=== PATIENT | female | born 1940 | race Caucasian/White ===

== ENCOUNTER 2016-09-28 10:38 | Inpatient (IN) | payer OTHER, MEDICARE ==
[~2016-09-28] VITALS: Ht 160 cm; Wt 56.6 kg
[~2016-09-28 10:38] MED LIST: COUM10TA PO; COUM5TAB PO; DIPH1TAB36 PO; LIPI80TA16 PO; MELO15TA2 PO
[2016-09-28 10:48] VITALS: BP 178/79; PULSE 65; RESP 14; TEMP 98.4
[2016-09-28 11:50] LABS: AUTOMATED NEUTROPHIL # 4.1 TH/MM3 (1.8-7.7); BASOPHIL % 0.7 % (0.0-2.0); EOSINOPHIL # 0.1 TH/MM3 (0-0.4); HEMO FLAGS DIFF FINAL; LYMPH % 19.6 % (9.0-44.0); LYMPHOCYTE # 1.1 TH/MM3 (1.0-4.8); MEAN CELL VOLUME 92.8 FL (80.0-100.0); MEAN CORPUSCULAR HGB CONC 33.4 % (32.0-36.0); MONO % 7.7 % (0.0-8.0); PLATELET COUNT 167 TH/MM3 (150-450); RED BLOOD COUNT 4.42 MIL/MM3 (4.00-5.30); RED CELL DISTRIBUTION WIDTH 13.5 % (11.6-17.2); WHITE BLOOD COUNT 5.8 TH/MM3 (4.0-11.0)
[2016-09-28 12:06] LABS: ANION GAP 11 MEQ/L (5-15); AST (GOT) 19 U/L (15-37); BICARBONATE 27.2 MEQ/L (21.0-32.0); BLOOD UREA NITROGEN 14 MG/DL (7-18); CHLORIDE 104 MEQ/L (98-107); GLOMERULAR FILTRATION RATE 76 ML/MIN (>89); POTASSIUM 3.9 MEQ/L (3.5-5.1); SODIUM (NA) 142 MEQ/L (136-145)
[2016-09-28 12:17] LABS: ACETAMINOPHEN LESS THAN 2.0 MCG/ML (10.0-30.0); ALKALINE PHOSPHATASE 85 U/L (45-117); ALT (GPT) 18 U/L (10-53); TOTAL BILIRUBIN ADULT 0.6 MG/DL (0.2-1.0)
--- NOTE | 2016-09-28 12:41 | RADRPT ---
EXAM DATE/TIME: 09/28/2016 12:26 [place] COMPARISON: No previous studies available for comparison. INDICATIONS : Altered mental status. RADIATION DOSE: 33.98 CTDIvol (mGy) MEDICAL HISTORY : Cardiovascular disease. Hypertension. SURGICAL HISTORY : Appendectomy. Cholecystectomy.Tubal ligation. ENCOUNTER: Initial ACUITY: 1 day PAIN SCALE: 0/10 LOCATION: cranial TECHNIQUE: Multiple contiguous axial images were obtained of the head. Using automated exposure control and adj ustment of the mA and/or kV according to patient size, radiation dose was kept as low as reasonably a chievable to obtain optimal diagnostic quality images. FINDINGS: CEREBRUM: The ventricles are normal for age. No evidence of midline shift, mass lesion, hemorrhage or acute in farction. No extra-axial fluid collections are seen. There is mild atrophy. POSTERIOR FOSSA: The cerebellum and brainstem are intact. The 4th ventricle is midline. The cerebellopontine angle i s unremarkable. EXTRACRANIAL: The visualized portion of the orbits is intact. SKULL: The calvaria is intact. No evidence of skull fracture. CONCLUSION: No acute intracranial abnormality. Butch Decker MD on September 28, 2016 at 12:39 Board Certified Radiologist. This report was verified electronically.
[2016-09-28 13:31] LABS: BLOOD, URINE MOD (NEG); COMMENT (UR) CULT NOT INDICATED; CULTURE IF INDICATED CULT NOT INDICATED; GLUCOSE,URINE NEG (NEG); HYALINE CAST, URINE 1 /lpf (RARE); KETONE, URINE TRACE mg/dL (NEG); NITRITE,URINE NEG (NEG); SQUAMOUS EPITHELIAL CELL URINE 1 /hpf (0-5); URINE COLOR YELLOW (YELLW/STRAW)
[2016-09-28 13:45] LABS: AMPHETAMINE, URINE NEG (NEG); BARBITURATES, URINE NEG (NEG); COCAINE, URINE NEG (NEG)
[2016-09-28] MEDS ORDERED: NITROFURANTOIN MONOHYD MACROCR 100 MG CAP PO ONE (13:45)
[2016-09-28] MEDS ORDERED: MACR100C2 PO (13:47)
--- NOTE | 2016-09-28 13:48 | PD ---
HPI Chief Complaint: Psychiatric Symptoms Time Seen by Provider: 11:04 Travel History International Travel<30 days: No Contact w/Intl Traveler<30days: No Traveled to known affect area: No History of Present Illness HPI Patient is a 75 year old female who is brought in under a [place] Act for suicidal ideation. Per police, she was threatening to take pills and hurt herself. She says that she is depressed because she thinks her is having an affair. Per police, she is having episodes of paranoia. She has no medical complaints. She denies any pain. She says she has not taken any pills today. PFSH Past Medical History Arthritis: Yes (GENERALIZED) Autoimmune Disease: No Blood Disorders: No Anxiety: No Depression: Yes Cancer: No Cardiovascular Problems: Yes (UNSPECIFIED HEART PROBLEM A CHILD) High Cholesterol: Yes Diminished Hearing: No Endocrine: No Gastrointestinal Disorders: Yes Genitourinary: Yes Hepatitis: Yes Hypertension: Yes Immune Disorder: No Implanted Vascular Access Dvce: Yes Musculoskeletal: Yes (CRAMPING IN HANDS & FEET) Neurologic: Yes Psychiatric: Yes (ATTEMPTED SUICIDE 12/26/08) Reproductive: No Respiratory: No Thyroid Disease: No Tetanus Vaccination: Unknown Influenza Vaccination: No (UNKNOWN) ?: Not Menopausal: Yes Tubal Ligation: Yes Past Surgical History Abdominal Surgery: Yes (APPENDECTOMY; CHOLECYSTECTOMY; COLONOSCOPIES WITH POLYPECTOMY) Appendectomy: Yes Cholecystectomy: Yes Gynecologic Surgery: Yes ( X 2; TUBAL LIGATION) Joint Replacement: Yes (JUAN C. TOTAL KNEES) Other Surgery: Yes (BREAST REDUCTION, OTHER UNKOWN SURGERIES) Social History Alcohol Use: No Tobacco Use: No Substance Use: Yes Allergies-Medications (Allergen,Severity, Reaction): Coded Allergies: Codeine (Verified Allergy, Mild, 12/26/08) Reported Meds & Prescriptions Reported Meds & Active Scripts Active Macrobid (Nitrofurantoin Monoh/Nitrofur Macro) 100 Mg Cap 100 Mg PO BID 5 Days Review of Systems Except as stated in HPI: all other systems reviewed are Neg General / Constitutional: No: Fever HENT: No: Headaches, Lightheadedness Cardiovascular: No: Chest Pain or Discomfort Respiratory: No: Shortness of Breath Gastrointestinal: No: Nausea, Vomiting, Abdominal Pain Genitourinary: No: Urgency, Frequency, Dysuria Musculoskeletal: No: Edema Skin: No Rash, No Change in Pigmentation Neurologic: No: Weakness, Dizziness Psychiatric: Positive: Depression, Suicidal Ideations Physical Exam Narrative GENERAL: Awake and alert, in no acute distress. SKIN: Warm and dry. HEAD: Atraumatic. Normocephalic. EYES: Pupils equal and round. No scleral icterus. ENT: Mucous membranes pink and moist. NECK: Trachea midline. No JVD. CARDIOVASCULAR: Regular rate and rhythm. No murmur appreciated. RESPIRATORY: No accessory muscle use. Clear to auscultation. Breath sounds equal bilaterally. GASTROINTESTINAL: Abdomen soft, non-tender, nondistended. Hepatic and splenic margins not palpable. MUSCULOSKELETAL: No obvious deformities. No clubbing. No cyanosis. No edema. NEUROLOGICAL: Awake and alert, oriented to person, says she can ever remember the date and she often forgets things. No obvious cranial nerve deficits. Motor grossly within normal limits. Normal speech. PSYCHIATRIC: Appropriate mood and affect; insight and judgment normal. Data Data Last Documented VS Vital Signs Date Time Temp Pulse Resp B/P Pulse Ox O2 Delivery O2 Flow Rate FiO2 09/28/16 10:48 98.4 65 14 178/79 Orders Complete Blood Count With Diff (09/28/16 11:14) Comprehensive Metabolic Panel (09/28/16 11:14) Thyroid Stimulating Hormone (09/28/16 11:14) Urinalysis - C+S If Indicated (09/28/16 11:14) Electrocardiogram (09/28/16 11:14) Psych Screen (09/28/16 11:14) Drug Screen, Random Urine (09/28/16 11:14) Alcohol (Ethanol) (09/28/16 11:14) Salicylates (Aspirin) (09/28/16 11:14) Tylenol (Acetaminophen) (09/28/16 11:14) Ct Brain W/O Iv Contrast(Rout) (09/28/16 ) Nitrofurantoin Monohyd Macrocr (Macrobid (09/28/16 13:45) Admit Order (Ed Use Only) (09/28/16 14:25) Lorazepam (Ativan) (09/28/16 14:30) Labs Laboratory Tests Test 09/28/16 09/28/16 11:20 13:12 White Blood Count 5.8 TH/MM3 Red Blood Count 4.42 MIL/MM3 Hemoglobin 13.7 GM/DL Hematocrit 41.0 % Mean Corpuscular Volume 92.8 FL Mean Corpuscular Hemoglobin 31.0 PG Mean Corpuscular Hemoglobin 33.4 % Concent Red Cell Distribution Width 13.5 % Platelet Count 167 TH/MM3 Mean Platelet Volume 9.1 FL Neutrophils (%) (Auto) 71.0 % Lymphocytes (%) (Auto) 19.6 % Monocytes (%) (Auto) 7.7 % Eosinophils (%) (Auto) 1.0 % Basophils (%) (Auto) 0.7 % Neutrophils # (Auto) 4.1 TH/MM3 Lymphocytes # (Auto) 1.1 TH/MM3 Monocytes # (Auto) 0.4 TH/MM3 Eosinophils # (Auto) 0.1 TH/MM3 Basophils # (Auto) 0.0 TH/MM3 CBC Comment DIFF FINAL Differential Comment Sodium Level 142 MEQ/L Potassium Level 3.9 MEQ/L Chloride Level 104 MEQ/L Carbon Dioxide Level 27.2 MEQ/L Anion Gap 11 MEQ/L Blood Urea Nitrogen 14 MG/DL Creatinine 0.74 MG/DL Estimat Glomerular Filtration 76 ML/MIN Rate Random Glucose 91 MG/DL Calcium Level 8.8 MG/DL Total Bilirubin 0.6 MG/DL Aspartate Amino Transf 19 U/L (AST/SGOT) Alanine Aminotransferase 18 U/L (ALT/SGPT) Alkaline Phosphatase 85 U/L Total Protein 6.9 GM/DL Albumin 3.8 GM/DL Thyroid Stimulating Hormone 1.220 uIU/ML 3rd Gen Salicylates Level LESS THAN 1.7 MG/DL Acetaminophen Level LESS THAN 2.0 MCG/ML Ethyl Alcohol Level LESS THAN 3 MG/DL Urine Color YELLOW Urine Turbidity HAZY Urine pH 7.0 Urine Specific [place] 1.013 Urine Protein NEG mg/dL Urine Glucose (UA) NEG mg/dL Urine Ketones TRACE mg/dL Urine Occult Blood MOD Urine Nitrite NEG Urine Bilirubin NEG Urine Urobilinogen LESS THAN 2.0 MG/DL Urine Leukocyte Esterase MOD Urine RBC 9 /hpf Urine WBC 8 /hpf Urine Squamous Epithelial 1 /hpf Cells Urine Hyaline Casts 1 /lpf Microscopic Urinalysis Comment CULT NOT INDICATED Urine Opiates Screen NEG Urine Barbiturates Screen NEG Urine Amphetamines Screen NEG Urine Benzodiazepines Screen NEG Urine Cocaine Screen NEG Urine Cannabinoids Screen NEG MDM Medical Decision Making Medical Screen Exam Complete: Yes Emergency Medical Condition: Yes Differential Diagnosis suicide attempt, electrolyte abnormalities, infection Narrative Course Patient is a 75 year old female who comes in under a [place] Act for suicidal ideation. She has no complaints at this time. Labs sent show UTI. Patient given Macrobid. Cleared for psychiatric evaluation. Disposition per psychiatry. Diagnosis Primary Impression: Suicidal ideation Additional Impression: UTI (urinary tract infection) Qualified Code: N30.00 - Acute cystitis without hematuria Scripts Warfarin (Coumadin)6 Mg Tab6 Mg PO DAILY@16 #30 TAB Ref 0 Prov:Butch Page MD 10/02/16 Quetiapine 25 Mg Tab25 Mg PO BID #60 TAB Ref 0 Prov:Butch Page MD 10/02/16 Nitrofurantoin Monohydrate Macrocrystals (Macrobid)100 Mg [id number] Mg PO BIDPC # 4 CAP Ref 0 Prov:Butch Page MD 10/02/16 Amlodipine (Norvasc)5 Mg Tab5 Mg PO DAILY #30 TAB Ref 0 Prov:Butch Page MD 10/02/16 Nitrofurantoin Monohydrate Macrocrystals (Macrobid)100 Mg [id number] Mg PO BID 5 Days Ref 0 Prov:Kira Travis MD 09/28/16 Condition: Stable Kira Travis MD Sep 28, 2016 13:47
[2016-09-28] MEDS ORDERED: LORazepam 0.5 MG TAB PO ONE (14:30)
[2016-09-28] MEDS ORDERED: diphenhydrAMINE HCL 50 MG CAP PO PRN (14:30)
[2016-09-28 14:34] VITALS: BP 152/72; PULSE 89; RESP 18; O2SAT 98
[2016-09-28] MEDS ORDERED: LORazepam 2 MG/ML VIAL - age > 65 yrs IM PRN (14:45)
[2016-09-28] MEDS ORDERED: ACETAMINOPHEN 325 MG TAB PO PRN (14:45)
[2016-09-28] MEDS ORDERED: diphenhydrAMINE HCL 50 MG/ML VIAL IM PRN (14:45)
[2016-09-28] MEDS ORDERED: hydrOXYzine HCL 50 MG TAB PO PRN (14:45)
[2016-09-28] MEDS ORDERED: ALUMINUM/MAGNESIUM/SIMETH 30 ML CUP PO PRN (14:45)
[2016-09-28] MEDS ORDERED: MAGNESIUM HYDROXIDE SUSP 30 ML CUP PO PRN (14:45)
[2016-09-28] MEDS ORDERED: LORazepam 0.5 MG TAB age > 65 yrs PO PRN (14:45)
[2016-09-28] MEDS: amLODIPine BESYLATE 5 MG TAB PO SCH (16:00)
--- NOTE | 2016-09-28 16:00 | PD.CONS ---
[facility] Reason for Consult Hypertension, cardiac Primary Care Physician Unknown Diagnoses: History of Present Illness This is a 75 field female patient who is currently alert and oriented to person and place only, therefore information gathered from patient as well as prior computerized charting. Patient has a past medical history which includes arthritis, heart surgery as a child, hyperlipidemia, hypertension and hepatitis unknown type. Patient reports she was brought here by 2 police officers. Patient reports she is feeling well and asking when she can go home. Patient is currently inpatient psychiatric center we have been consulted for assistance with hypertension, cardiac. Patient does appear anxious at this time but in no acute distress. Patient denies shortness of breath chest pain nausea vomiting diarrhea constipation fevers or chills. Patient also denies headache changes in vision or lightheaded feeling. Review of Systems ROS Limitations: Poor Historian Except as stated in HPI: all other systems reviewed are Neg Past Family Social History Allergies: Coded Allergies: Codeine (Verified Allergy, Mild, 12/26/08) Past Medical History arthritis, heart surgery as a child, hyperlipidemia, hypertension and hepatitis unknown type Past Surgical History Appendectomy, cholecystectomy, colonoscopy with polypectomy, 2, tubal ligation, bilateral total knee replacement and breast reduction Reported Medications Macrobid (Nitrofurantoin Monoh/Nitrofur Macro) 100 Mg Cap 100 Mg PO BID 5 Days Active Ordered Medications Current Medications Medications (Trade) Dose Ordered Sig/Joann Route Start Time Stop Time Status Last Admin (Ativan) 0.5 mg Q12H PRN PO 09/28/16 14:45 (Ativan Inj) 0.5 mg Q12H PRN IM 09/28/16 14:45 (Atarax) 50 mg Q6H PRN PO 09/28/16 14:45 (Benadryl) 50 mg Q6H PRN PO 09/28/16 14:30 (Benadryl Inj) 50 mg Q6H PRN IM 09/28/16 14:45 (Tylenol) 650 mg Q4H PRN PO 09/28/16 14:45 (Milk Of Magnesia Liq) 30 ml DAILY PRN PO 09/28/16 14:45 (Mag-Al Plus Susp Liq) 30 ml Q6H PRN PO 09/28/16 14:45 Family History Patient does not recall her family history reports he believes everyone is healthy denies hypertension diabetes CAD or cancer Social History Patient reports she occasionally does drink alcohol not on a daily basis Patient denies EtOH use or illicit drug use Physical Exam Vital Signs Vital Signs Date Time Temp Pulse Resp B/P Pulse Ox O2 Delivery O2 Flow Rate FiO2 09/28/16 14:34 89 18 152/72 98 09/28/16 10:48 98.4 65 14 178/79 Physical Exam GENERAL: This is a well-nourished, well-developed patient 75 year old female patient appears anxious but in no apparent distress. SKIN: No rashes, ecchymoses or lesions. Cool and dry. HEAD: Atraumatic. Normocephalic. No temporal or scalp tenderness. EYES: Extraocular motions intact. No scleral icterus. No injection or drainage. CARDIOVASCULAR: Regular rate and rhythm without murmurs, gallops, or rubs. RESPIRATORY: Clear to auscultation. Breath sounds equal bilaterally. No wheezes , rales, or rhonchi. GASTROINTESTINAL: Abdomen soft, non-tender, nondistended. MUSCULOSKELETAL: Extremities without clubbing, cyanosis, or edema. No joint tenderness, effusion, or edema noted. No calf tenderness. Negative Homans sign bilaterally. NEUROLOGICAL: Awake and alert. No focal deficits. Motor and sensory grossly within normal limits. Five out of 5 muscle strength in all muscle groups. Normal speech. Laboratory Laboratory Tests Test 09/28/16 09/28/16 11:20 13:12 White Blood Count 5.8 Red Blood Count 4.42 Hemoglobin 13.7 Hematocrit 41.0 Mean Corpuscular Volume 92.8 Mean Corpuscular Hemoglobin 31.0 Mean Corpuscular Hemoglobin 33.4 Concent Red Cell Distribution Width 13.5 Platelet Count 167 Mean Platelet Volume 9.1 Neutrophils (%) (Auto) 71.0 Lymphocytes (%) (Auto) 19.6 Monocytes (%) (Auto) 7.7 Eosinophils (%) (Auto) 1.0 Basophils (%) (Auto) 0.7 Neutrophils # (Auto) 4.1 Lymphocytes # (Auto) 1.1 Monocytes # (Auto) 0.4 Eosinophils # (Auto) 0.1 Basophils # (Auto) 0.0 CBC Comment DIFF FINAL Differential Comment Sodium Level 142 Potassium Level 3.9 Chloride Level 104 Carbon Dioxide Level 27.2 Anion Gap 11 Blood Urea Nitrogen 14 Creatinine 0.74 Estimat Glomerular Filtration 76 Rate Random Glucose 91 Calcium Level 8.8 Total Bilirubin 0.6 Aspartate Amino Transf 19 (AST/SGOT) Alanine Aminotransferase 18 (ALT/SGPT) Alkaline Phosphatase 85 Total Protein 6.9 Albumin 3.8 Thyroid Stimulating Hormone 1.220 3rd Gen Salicylates Level LESS THAN 1.7 Acetaminophen Level LESS THAN 2.0 Ethyl Alcohol Level LESS THAN 3 Urine Color YELLOW Urine Turbidity HAZY Urine pH 7.0 Urine Specific [place] 1.013 Urine Protein NEG Urine Glucose (UA) NEG Urine Ketones TRACE Urine Occult Blood MOD Urine Nitrite NEG Urine Bilirubin NEG Urine Urobilinogen LESS THAN 2.0 Urine Leukocyte Esterase MOD Urine RBC 9 Urine WBC 8 Urine Squamous Epithelial 1 Cells Urine Hyaline Casts 1 Microscopic Urinalysis Comment CULT NOT INDICATED Urine Opiates Screen NEG Urine Barbiturates Screen NEG Urine Amphetamines Screen NEG Urine Benzodiazepines Screen NEG Urine Cocaine Screen NEG Urine Cannabinoids Screen NEG Result Diagram: 09/28/16 1120 09/29/16 0701 Assessment and Plan Assessment and Plan This is a 75 field female patient who is currently alert and oriented to person and place only, therefore information gathered from patient as well as prior computerized charting. Patient has a past medical history which includes arthritis, heart surgery as a child, hyperlipidemia, hypertension and hepatitis unknown type. Patient reports she was brought here by 2 police officers. Patient reports she is feeling well and asking when she can go home. Patient is currently inpatient psychiatric center we have been consulted for assistance with hypertension, cardiac. Hypertension will start Norvasc 5 mg daily continue to monitor blood pressure trend History of hyperlipidemia- lipid profile pending ? UTI UA reveals negative protein, negative nitrates, moderate leukocyte esterase- ER provider started patient on Macrobid 100 mg twice a day 5 days- given patient's confusion she is unable to tell whether not she is having symptoms. Will continue and await culture results DVT prophylaxis patient is ambulatory and low risk Discussed plan of care with patient and nursing Written by Luna Greenwood, acting as scribe for Dr. Shaffer on 09/28/16 at 15:59. Spoke with patient's reports that patient takes 5 mg Coumadin PO daily for blood clots in the past, but has not been taking her medications. restarted coumadin with pharmacy consult. Attending Statement The documentation accurately reflects the work performed [id number] by me on 09/28/16 at 15:59. Luna Greenwood Sep 28, 2016 16:00 Lai Daniels MD Oct 02, 2016 23:05
[2016-09-28 16:39] VITALS: BP 164/56; PULSE 89; RESP 18; TEMP 97.9; O2SAT 99
[2016-09-28] MEDS: NITROFURANTOIN MONOHYD MACROCR 100 MG CAP PO SCH (16:41)
[2016-09-28] MEDS: WARFARIN SOD 5 MG TAB PO SCH (16:42)
[2016-09-29 05:52] VITALS: BP 122/73; PULSE 68; RESP 18; TEMP 97.9; O2SAT 98
[2016-09-29 07:56] LABS: INTERNATIONAL NORMALIZED RATIO 1.3 RATIO; PROTHROMBIN TIME - PATIENT 14.7 SEC (9.8-11.6)
[2016-09-29 08:20] LABS: ANION GAP 7 MEQ/L (5-15); BICARBONATE 28.9 MEQ/L (21.0-32.0); BLOOD UREA NITROGEN 16 MG/DL (7-18); CHLORIDE 106 MEQ/L (98-107); GLOMERULAR FILTRATION RATE 81 ML/MIN (>89); HDL CHOLESTEROL 74.3 MG/DL (40.0-60.0); LDL CHOLESTEROL 152 MG/DL (0-99); POTASSIUM 3.7 MEQ/L (3.5-5.1); SODIUM (NA) 142 MEQ/L (136-145)
[2016-09-29] MEDS: NITROFURANTOIN MONOHYD MACROCR 100 MG CAP PO SCH ×2 (08:38→17:24)
[2016-09-29] MEDS: amLODIPine BESYLATE 5 MG TAB PO SCH (08:38)
--- NOTE | 2016-09-29 13:36 | EKG ---
Date Performed: 09/28/2016 Time Performed: 12:19:20 PTAGE: 75 years EKG: Sinus rhythm NORMAL ECG Compared to prior tracing no significant change PREVIOUS TRACING : 12/26/2008 10.59 DOCTOR: Addison Fatima Interpretating Date/Time 09/29/2016 13:35:51
--- NOTE | 2016-09-29 14:59 | HHI.HP ---
Provisional Diagnosis Admission Date Sep 28, 2016 at 14:27 [place] I. Other Alzheimer's disease g 30.8 Certification of Person's Competence To Provide Express and Informed Consent I have personally examined Tavia Fried , a person being served at [facility] on, Sep 29, 2016 14:37. Express and informed consent means consent voluntarily given in writing, by a competent person, after sufficient explanation and disclosure of the subject matter involved to enable the person to make a knowing and willful decision without any element of force, fraud, deceit, duress, or other form of constraint or coercion. This person is 18 years of age or older, is not now known to be incompetent to consent to treatment with a guardian advocate, and does not have a health care surrogate or proxy currently making medical treatment decisions. I have found this person to be one of the following: [] Competent to provide express and informed consent, as defined above, for voluntary admission to this facility and is competent to provide express and informed consent for treatment. He/she has the consistent capacity to make well reasoned, willful, and knowing decisions concerning his or her medical or mental health treatment. The person fully and consistently understands the purpose of the admission for examination/placement and is fully capable of personally exercising all rights assured [place] [x] Incompetent to provide express and informed consent to voluntary admission, and this is incompetent to provide express and informed consent to treatment. The person must be transferred to involuntary status and a petition for a guardian advocate filed with the Circuit Court. [] Refusing to provide express and informed consent to voluntary admission but is competent to provide express and informed consent for treatment. The person must be discharged or transferred to involuntary status. Form shall be completed within 24 hours of a person's arrival at the receiving facility and filed in the clinical record of each person: 1. Admitted on a voluntary basis 2. Permitted to provide express and informed consent to his/her own treatment 3. Allowed to transfer from involuntary to voluntary status 4. Prior to permitting a person to consent to his or her own treatment after having been previously found incompetent to consent to treatment. History of Present Illness Capacity: Lacks Capacity HPI Patient is a 75-year-old white female, born in [place], comes here under the Espinosa act by the [employer] Department dated 09/28/16 at 9:30 AM. Stating received a call of a mentally ill person, upon arrival made contact with RP who stated his has been having numerous mental breakdowns. RP advised his has threatened to kill herself numerous times. Patient seen screened in the ED urine toxicology negative. Of and chest patient also seen here for similar episode of depression in relationship issues with her under visit [id number] on 08/27/[address] Andrez Polanco and released without medication. At the present time patient sitting quietly in her room with nurse Caio and medical student Magdalene. Patient was diffusely confused as to place time and situation, speaking in rapid pressured speech markedly disorganized with loose associations. Very poor personal boundaries to the point where she went over and not his her female roommate was lying in bed. She also referred to me as as "sweetheart "preferred to other staff as "honey patient is statements of living with her , with her daughter, and with her son though at times this was confusing also. When asked about relationship she says she loves them all and they all love her. When asked about any alcohol or drug use she was somewhat vague but then [place] me over to her house to have some schnapps patient denied and was vague about prior psychiatric contact hospitalization of psychotropic medications. She did denies suicidality homicidality voices or visions. The deny any prior physical or sexual abuse. Denied any substances of abuse or smoking. She also denied history of mental health issues with her family. In any event at the present time patient does meet criteria for involuntary psychiatric hospitalization of the Espinosa act thus I'll do first opinion requests a second opinion. I also feel she does not have capacity thus I'll ask for healthcare surrogate and guardian advocate. Patient is on anticoagulants perhaps for prior DVTs. With the hospitalist consulting us with that we'll have a counselor attempt to call the patient's family arrange for meeting tomorrow morning. We need to discuss with patient's and family possible placement issues. At the present time will refrain from any psychotropic medications and observe her behavior until family meeting tomorrow Review of Systems ROS Limitations: Altered Mental Status Constitutional: DENIES: Diaphoretic episodes, Fatigue, Fever, Weight gain, Weight loss, Chills, Dizziness, Change in appetite, Night Sweats Endocrine: DENIES: Abnorml menstrual pattern, Heat/cold intolerance, Polydipsia , Polyuria, Polyphagia Eyes: DENIES: Blurred vision, Diplopia, Eye inflammation, Eye pain, Vision loss , Photosensitivity, Double Vision Ears, nose, mouth, throat: DENIES: Tinnitus, Hearing loss, Vertigo, Nasal discharge, Oral lesions, Throat pain, Hoarseness, Ear Pain, Running Nose, Epistaxis, Sinus Pain, Toothache, Odynophagia Respiratory: DENIES: Apneas, Cough, Snoring, Wheezing, Hemoptysis, Sputum production, Shortness of breath Cardiovascular: DENIES: Chest pain, Palpitations, Syncope, Dyspnea on Exertion , PND, Lower Extremity Edema, Orthopnea, Claudication Gastrointestinal: DENIES: Abdominal pain, Black stools, Bloody stools, Constipation, Diarrhea, Nausea, Vomiting, Difficulty Swallowing, Anorexia Genitourinary: DENIES: Abnormal vaginal bleeding, Dysmenorrhea, Dyspareunia, Sexual dysfunction, Urinary frequency, Urinary incontinence, Urgency, Hematuria , Dysuria, Nocturia, Vaginal discharge Musculoskeletal: DENIES: Joint pain, Muscle aches, Stiffness, Joint Swelling, Back pain, Neck pain Integumentary: DENIES: Abnormal pigmentation, Pruritus, Rash, Nail changes, Breast masses, Breast skin changes, Nipple discharge Hematologic/lymphatic: DENIES: Bruising, Lymphadenopathy Immunologic/allergic: DENIES: Eczema, Urticaria Neurologic: DENIES: Abnormal gait, Headache, Localized weakness, Paresthesias, Seizures, Speech Problems, Tremor, Poor Balance Psychiatric: COMPLAINS OF: Confusion, Mood changes, Suicidal Ideation Past Psych History Psychological trauma history Patient denies physical or sexual abuse Violence risk - others (6 mos) Low Violence risk - self (6 mos) Patient made suicidal statements Substance Abuse History Drugs/Alcohol past 12 months Uncertain at this time need verification from family Past Family Social History Coded Allergies: Codeine (Verified Allergy, Mild, 12/26/08) Past Medical History Please see [employer] Active Scripts Nitrofurantoin Monohydrate Macrocrystals (Macrobid)100 Mg [id number] Mg PO BID 5 Days Ref 0 Prov:Kira Travis MD 09/28/16 Current Medications Medications (Trade) Dose Ordered Sig/Joann Route Start Time Stop Time Status Last Admin (Ativan) 0.5 mg Q12H PRN PO 09/28/16 14:45 (Ativan Inj) 0.5 mg Q12H PRN IM 09/28/16 14:45 (Atarax) 50 mg Q6H PRN PO 09/28/16 14:45 (Benadryl) 50 mg Q6H PRN PO 09/28/16 14:30 (Benadryl Inj) 50 mg Q6H PRN IM 09/28/16 14:45 (Tylenol) 650 mg Q4H PRN PO 09/28/16 14:45 (Milk Of Magnesia Liq) 30 ml DAILY PRN PO 09/28/16 14:45 (Mag-Al Plus Susp Liq) 30 ml Q6H PRN PO 09/28/16 14:45 (Macrobid) 100 mg BIDPC PO 09/28/16 18:00 10/03/16 17:59 09/29/16 08:38 (Norvasc) 5 mg DAILY PO 09/28/16 16:00 09/29/16 08:38 Warfarin Sodium 5 mg 5 mg DAILY@1600 PO 09/29/16 16:00 (Coumadin Consult Pharmacy) 0 ml @ 0 mls/hr UNSCH OTHER 09/28/16 16:15 (Coumadin Booklet) 1 ONCE ONCE XX 09/29/16 16:00 09/29/16 16:01 Family History Patient denies mental illness and family Social History Patient states she lives with her son and daughter Patient's Strengths (min. 2) Verbal able access healthcare Physical Exam Patient seen screened in ED exam reviewed and agreed with vital signs pressure 122/73 pulse 68 respirations 18 Vital Signs Vital Signs Date Time Temp Pulse Resp B/P Pulse Ox O2 Delivery O2 Flow Rate FiO2 09/29/16 05:52 97.9 68 18 122/73 98 I/O 09/28/16 09/28/16 09/29/16 08:00 16:00 00:00 Intake Total 360 ml Balance 360 ml Mental Status Examination Alert diffusely confused white female appearing stated age with rapid pressured speech markedly intrusive somewhat grandiose, with intense eye contact patient is seen with nurse Caio and medical student Bernadette Appearance Somewhat disheveled Speech: Pressured, Rapid, Circumstantial, Tangential Orientation: Person (vaguely) Memory: Impaired (describe) Thought Process: Loose Association Thought Content: Other (disorganized) Hallucination Type: None Attention and Concentration: Easily Distracted Suicidal Ideation: Yes Previous Suicide Attempts: No Homicidal Ideation: No Previous Homicide Attempts: No Insight: Poor Judgement: Poor Affect: Other (increase range of motion intensity) Mood: Manic Motor Activity: Normal gait Assessment & Plan Problem List: (1) OTHER ALZHEIMER'S DISEASE ICD Code: G30.8 Assessment & Plan Estimated LOS 5-7 days at this time patient meets Espinosa criteria for involuntary hospitalization I'll do first opinion requests second opinion I will also ask for healthcare surrogate and guardian advocate. Will attempt to arrange a family meeting for tomorrow morning. Will refrain from any psychotropic medications at this time continue observation Discharge Planning To be determined Request HC Surrog/Guard Advoc?: Yes Butch Page MD Sep 29, 2016 14:59
[2016-09-29] MEDS ORDERED: ACETAMINOPHEN 325 MG TAB PO PRN (15:00)
[2016-09-29] MEDS ORDERED: ALUMINUM/MAGNESIUM/SIMETH 30 ML CUP PO PRN (15:00)
[2016-09-29] MEDS ORDERED: MAGNESIUM HYDROXIDE SUSP 30 ML CUP PO PRN (15:00)
[2016-09-29] MEDS: WARFARIN SOD 5 MG TAB PO SCH (15:55)
[2016-09-29 16:16] LABS: HEMOGLOBIN A1a 1.1 %; HEMOGLOBIN A1b 1.4 %; HEMOGLOBIN Ao 86.5 %; HEMOGLOBIN LA1C 1.9 %; HEMOGLOBIN P3 3.5 %
[2016-09-29 19:09] VITALS: BP 111/56; PULSE 68; RESP 18; TEMP 97.3; O2SAT 97
[2016-09-30 06:00] VITALS: BP 129/70; PULSE 80; RESP 18; TEMP 98; O2SAT 97
--- NOTE | 2016-09-30 07:56 | PD.CONS ---
Provisional Diagnosis Admission Date Sep 28, 2016 at 14:27 [place] I. 1. Neurocognitive disorder, F99 Suspect major neurocognitive disorder of the Alzheimer's type with associated behavioral disturbance or psychosis Rule out comorbid primary affective or psychotic disorder [place] II. Deferred [place] V. GAF is 30 presently History of Present Illness Service Psychiatry Consult Requested By Dr. Page Reason for Consult Second opinion Primary Care Physician Unknown HPI From Dr. Page's H&P: Patient is a 75-year-old white female, born in [place], comes here under the [employer] act by the [employer] Department dated 09/28/16 at 9:30 AM. Stating received a call of a mentally ill person, upon arrival made contact with RP who stated his has been having numerous mental breakdowns. RP advised his has threatened to kill herself numerous times. Patient seen screened in the ED urine toxicology negative. Of and chest patient also seen here for similar episode of depression in relationship issues with her under visit [id number] on 08/27/[address] Andrez Polanco and released without medication. At the present time patient sitting quietly in her room with nurse Caio and medical student Magdalene. Patient was diffusely confused as to place time and situation, speaking in rapid pressured speech markedly disorganized with loose associations. Very poor personal boundaries to the point where she went over and not his her female roommate was lying in bed. She also referred to me as as "sweetheart "preferred to other staff as "honey patient is statements of living with her , with her daughter, and with her son though at times this was confusing also. When asked about relationship she says she loves them all and they all love her. When asked about any alcohol or drug use she was somewhat vague but then [place] me over to her house to have some schnapps patient denied and was vague about prior psychiatric contact hospitalization of psychotropic medications. She did denies suicidality homicidality voices or visions. The deny any prior physical or sexual abuse. Denied any substances of abuse or smoking. She also denied history of mental health issues with her family. In any event at the present time patient does meet criteria for involuntary psychiatric hospitalization of the Espinosa act thus I'll do first opinion requests a second opinion. I also feel she does not have capacity thus I'll ask for healthcare surrogate and guardian advocate. Patient is on anticoagulants perhaps for prior DVTs. With the hospitalist consulting us with that we'll have a counselor attempt to call the patient's family arrange for meeting tomorrow morning. We need to discuss with patient's and family possible placement issues. At the present time will refrain from any psychotropic medications and observe her behavior until family meeting tomorrow On my examination today: Patient seen and examined. Chart reviewed. On my examination today, the patient is calm and pleasant but confused, please see full mental status testing below. She has no recollection of the circumstances of the Espinosa act. She denies any issues with mood. She denies any suicidal or homicidal ideation. She denies any audiovisual hallucinations and I can elicit no delusional beliefs. She in particular does not describe any beliefs that her is having an affair. Psychiatric interview is somewhat limited because of degree of cognitive impairment. Past psychiatric history: Patient is likely an unreliable historian but denies any history of psychiatric diagnosis. She denies any history of inpatient or outpatient psychiatric treatment. She denies any history of suicide attempts, although I do see notation in the chart that she presented in 2008 with a multidrug overdose. Family history: The patient denies a family history of mental illness. Chemical dependency history: The patient denies any abuse of drugs or alcohol. Toxicology on presentation here was negative. Social history: Patient reports that she lives at home. Initially she says she lives with her son and daughter. She forgets that she is but when I ask her directly she says that she lives at home with her , son and daughter. She cannot remember her level of education. She cannot remember her work history. Social history is fairly limited because of cognitive impairment for autobiographical details. Review of Systems ROS Limitations: Poor Historian Other No reported physical complaints today Past Family Social History Coded Allergies: Codeine (Verified Allergy, Mild, 12/26/08) Past Medical History See electronic medical record Active Scripts Nitrofurantoin Monohydrate Macrocrystals (Macrobid)100 Mg [id number] Mg PO BID 5 Days Ref 0 Prov:Kira Travis MD 09/28/16 Current Medications Medications (Trade) Dose Ordered Sig/Joann Route Start Time Stop Time Status Last Admin (Ativan) 0.5 mg Q12H PRN PO 09/28/16 14:45 09/29/16 14:25 (Atarax) 50 mg Q6H PRN PO 09/28/16 14:45 (Macrobid) 100 mg BIDPC PO 09/28/16 18:00 10/03/16 17:59 09/29/16 17:24 (Norvasc) 5 mg DAILY PO 09/28/16 16:00 09/29/16 08:38 Warfarin Sodium 5 mg 5 mg DAILY@1600 PO 09/29/16 16:00 09/29/16 15:55 (Coumadin Consult Pharmacy) 0 ml @ 0 mls/hr UNSCH OTHER 09/28/16 16:15 (Tylenol) 650 mg Q4H PRN PO 09/29/16 15:00 (Milk Of Magnesia Liq) 30 ml DAILY PRN PO 09/29/16 15:00 (Mag-Al Plus Susp Liq) 30 ml Q6H PRN PO 09/29/16 15:00 Patient's Strengths (min. 2) In a monitored setting. Verbally fluent. Physical Exam Physical examination completed by ED provider. On my examination today, patient appears to be well-nourished and well-developed and in no acute physical distress. No motoric abnormalities noted. Labs and vital signs reviewed. Vital Signs Vital Signs Date Time Temp Pulse Resp B/P Pulse Ox O2 Delivery O2 Flow Rate FiO2 09/30/16 06:00 98.0 80 18 129/70 97 I/O 09/29/16 09/29/16 09/30/16 08:00 16:00 00:00 Intake Total 1320 ml Balance 1320 ml Lab Results Item Value Date Time White Blood Count 5.8 TH/MM3 09/28/16 1120 Hemoglobin 13.7 GM/DL 09/28/16 1120 Platelet Count 167 TH/MM3 09/28/16 1120 Sodium Level 142 MEQ/L 09/29/16 0701 Potassium Level 3.7 MEQ/L 09/29/16 0701 Chloride Level 106 MEQ/L 09/29/16 0701 Carbon Dioxide Level 28.9 MEQ/L 09/29/16 0701 Blood Urea Nitrogen 16 MG/DL 09/29/16 0701 Creatinine 0.70 MG/DL 09/29/16 0701 Random Glucose 90 MG/DL 09/29/16 0701 Hemoglobin A1c 5.3 % 09/29/16 0701 Aspartate Amino Transf (AST/SGOT) 19 U/L 09/28/16 1120 Alanine Aminotransferase (ALT/SGPT) 18 U/L 09/28/16 1120 Alkaline Phosphatase 85 U/L 09/28/16 1120 Thyroid Stimulating Hormone 3rd Gen 1.220 uIU/ML 09/28/16 1120 Toxicology and urinalysis results reviewed. Head CT read as no acute intracranial abnormality. Mental Status Examination Patient is in hospital gown. She is fairly well groomed. She is awake and alert and oriented to person only. She cannot give the date or the location. Her registration is 3 out of 3 but her recall is 0 out of 3 at 3 minutes. She is unable to spell the word world backwards but can spell it forwards. She is able to name 2 items but struggles to repeat a phrase. No motoric abnormalities noted. Speech is within normal limits for rate, tone and volume. Language and fund of knowledge seem reduced. Patient denies any issues with mood and her affect is fairly bright, full and reactive at this point. Thought process circumstantial, at times tangential. Associations somewhat loose. No bashir delusional material. Denies audiovisual hallucinations. Denies suicidal or homicidal ideation but it is unclear that she is reliable to contract for safety in her present state. Insight and judgment are presently poor. Assessment & Plan Problem List: (1) Confusion and disorientation ICD Code: F99 Assessment & Plan Given the circumstances of her presentation here in her presentation on my examination today, I concur with Dr. Page that the patient meets criteria for involuntary psychiatric hospitalization under the Espinosa act. I completed the second opinion paperwork. Further care as per Dr. Page. Thank you very much for this consultation. Signing off. Request HC Surrog/Guard Advoc?: Yes Addison Hilario MD Sep 30, 2016 07:56
[2016-09-30 08:08] LABS: INTERNATIONAL NORMALIZED RATIO 1.3 RATIO; PROTHROMBIN TIME - PATIENT 14.7 SEC (9.8-11.6)
[2016-09-30] MEDS: amLODIPine BESYLATE 5 MG TAB PO SCH (09:46)
[2016-09-30] MEDS: NITROFURANTOIN MONOHYD MACROCR 100 MG CAP PO SCH ×2 (09:46→17:46)
--- NOTE | 2016-09-30 12:30 | PD.PN.STU ---
Subjective Remarks Patient reports feeling sad today stating "I feel sad, I miss my animals, I miss my son, I miss my hubby. I want to go home". She reports she has slept well and has taken "2 pills' Today. Objective Vitals Vital Signs Date Time Temp Pulse Resp B/P Pulse Ox O2 Delivery O2 Flow Rate FiO2 09/30/16 06:00 98.0 80 18 129/70 97 09/29/16 19:09 97.3 68 18 111/56 97 I/O 09/29/16 09/29/16 09/29/16 09/30/16 09/30/16 09/30/16 07:00 15:00 23:00 07:00 15:00 23:00 Intake Total 1320 ml Balance 1320 ml Intake Oral 1320 ml # Voids 2 2 1 # Bowel Movements 1 Result Diagram: 09/28/16 1120 09/29/16 0701 Objective Remarks Patient is sitting comfortably at lunch table with other patients, she appears tearful and is being consoled by another patient. Son is here visiting with patient. He states that he does not live with the patient and she is "confused" about that. He states that she lives with her and he is "physically deteriorating", suffering from his second bout of pneumonia currently. They are considering putting him in an [facility] currently. He also suggests that the patient is normally on Zoloft. She is refusing to eat her lunch due to being depressed. A/P Assessment and Plan Patient appears depressed, no suicidal/homicidal ideation. Will see if patient medication list included Zoloft in the past per sons history today. Will continue to follow patient and work with family members for future D/C plans if she is stable to [place]. Magdalene Huang M3 Sep 30, 2016 12:29
--- NOTE | 2016-09-30 13:40 | HHI.PYPN ---
Subjective Remarks Patient seen in her room with nurse Lashell and medical student Rosina, patient calm pleasant at times a little labile with some softening of our personal boundaries. She states she still wishes to go home to be with her family that appear she lives alone with her who has some medical issues of his own. Patient did visit with her son today was though that she became somewhat tearful with him. Patient compliant medications for now continue treatment Review of Systems Except as stated in HPI: all other systems reviewed are Neg Objective Alert: Yes [place]: Person Mood: Anxious, Calm Affect: Labile Memory Intact: Comment (poor) Hallucinations: Other (denies) Delusions: No Delusion Type: Other (only vigilant) Suicidal: Ideation (denies) Homicidal: Ideation (denies) Insight/Judgement Poor Labs Test 09/30/16 07:11 Prothrombin Time 14.7 SEC Prothromb Time International 1.3 RATIO Ratio Date/Time Procedure Status Source Growth 09/28/16 13:13 Urine Culture - Final Complete Urine Clean Catch 50-100,000 CFU/ML MIXED GRAM POSITIVE... Vitals/IOs Vital Signs Date Time Temp Pulse Resp B/P Pulse Ox O2 Delivery O2 Flow Rate FiO2 09/30/16 06:00 98.0 80 18 129/70 97 Intake and Output 09/29/16 09/29/16 09/30/16 08:00 16:00 00:00 Intake Total 1320 ml Balance 1320 ml Assessment & Plan Problem List: (1) OTHER ALZHEIMER'S DISEASE ICD Code: G30.8 Assessment & Plan Estimated LOS: days patient remains confused disoriented but no significant behavioral problems at this time. For now continue treatment Justification for Cont. Inpt. At this time patient decompensate if placed in a lower level of care Discharge Planning To be determined Request HC Surrog/Guard Advoc?: Yes Butch Page MD Sep 30, 2016 13:40
[2016-09-30] MEDS ORDERED: WARFARIN SOD 6 MG TAB PO SCH (16:00)
[2016-09-30 18:00] VITALS: BP 151/73; PULSE 62; RESP 18; TEMP 97.5; O2SAT 92
[2016-09-30] MEDS: QUEtiapine FUMARATE 25 MG TAB PO SCH (20:59)
[2016-10-01 06:23] VITALS: BP 120/74; PULSE 77; RESP 18; TEMP 98.4; O2SAT 93
[2016-10-01 07:40] LABS: INTERNATIONAL NORMALIZED RATIO 1.3 RATIO; PROTHROMBIN TIME - PATIENT 14.9 SEC (9.8-11.6)
[2016-10-01] MEDS: QUEtiapine FUMARATE 25 MG TAB PO SCH ×2 (08:30→21:00)
[2016-10-01] MEDS: NITROFURANTOIN MONOHYD MACROCR 100 MG CAP PO SCH ×2 (08:30→17:50)
[2016-10-01] MEDS: amLODIPine BESYLATE 5 MG TAB PO SCH (08:30)
--- NOTE | 2016-10-01 12:20 | HHI.PR ---
Subjective Remarks Follow-up visit HTN, HLD, UTI. Patient seen today. Reports she is doing well. Requesting to go home. Denies pain and discomfort. Denies SOB/ dyspnea. Denies chest pain, palpitations, headaches, dizziness. Denies fevers, chills, n/ v/d. Objective Vitals Vital Signs Date Time Temp Pulse Resp B/P Pulse Ox O2 Delivery O2 Flow Rate FiO2 10/01/16 06:23 98.4 77 18 120/74 93 09/30/16 18:00 97.5 62 18 151/73 92 I/O 09/30/16 09/30/16 09/30/16 10/01/16 10/01/16 10/01/16 07:00 15:00 23:00 07:00 15:00 23:00 Intake Total 1080 ml Balance 1080 ml Intake Oral 1080 ml # Voids 1 2 3 Result Diagram: 09/28/16 1120 09/29/16 0701 Imaging Last Impressions Head CT 09/28/16 0000 Signed Impressions: Service Date/Time: Wednesday, September 28, 2016 12:26 - CONCLUSION: No acute intracranial abnormality. Butch Decker MD Objective Remarks GENERAL: This is a well-nourished, well-developed patient 75 year old female patient appears anxious but in no apparent distress. SKIN: No rashes, ecchymoses or lesions. Cool and dry. HEAD: Atraumatic. Normocephalic. No temporal or scalp tenderness. EYES: Extraocular motions intact. No scleral icterus. No injection or drainage. CARDIOVASCULAR: Regular rate and rhythm without murmurs, gallops, or rubs. RESPIRATORY: Clear to auscultation. Breath sounds equal bilaterally. No wheezes , rales, or rhonchi. GASTROINTESTINAL: Abdomen soft, non-tender, nondistended. Bowel sounds active 4. MUSCULOSKELETAL: Extremities without clubbing, cyanosis, or edema. No joint tenderness, effusion, or edema noted. No calf tenderness. Negative Homans sign bilaterally. NEUROLOGICAL: Awake and alert. Confuse. Anxious. Motor and sensory grossly within normal limits. Normal speech. A/P Problem List: (1) Confusion and disorientation ICD Code: F99 Status: Acute (2) OTHER ALZHEIMER'S DISEASE ICD Code: G30.8 Status: Acute (3) HTN (hypertension) ICD Code: I10 Status: Chronic (4) HLD (hyperlipidemia) ICD Code: E78.5 Status: Chronic Assessment and Plan This is a 75 field female patient who is currently alert and oriented to person and place only, therefore information gathered from patient as well as prior computerized charting. Patient has a past medical history which includes arthritis, heart surgery as a child, hyperlipidemia, hypertension and hepatitis unknown type. Patient reports she was brought here by 2 police officers. Patient reports she is feeling well and asking when she can go home. Patient is currently inpatient psychiatric center we have been consulted for assistance with hypertension, cardiac. Hypertension will start Norvasc 5 mg daily continue to monitor blood pressure trend History of hyperlipidemia- lipid profile reviewed. ASCVD risk 21.3%. - Recommendations include lifestyle changes, heart healthy diet and exercise. Not in the statin benefit group due to age. UTI UA reveals negative protein, negative nitrates, moderate leukocyte esterase - ER provider started patient on Macrobid 100 mg twice a day 5 days- given patient's confusion she is unable to tell whether not she is having symptoms. - Microbiology showed 50-100,000 mixed gram-positive possibly contamination. - Patient will complete Macrobid 10/03/16 DVT, Hx - on Coumadin - Monitor INR DVT prophylaxis Coumadin, patient ambulatory Discussed plan of care with patient and nursing Stable from Hospitalist standpoint. We will sign off. Reconsult as needed. Raissa Lennon Oct 01, 2016 12:20
--- NOTE | 2016-10-01 13:47 | HHI.PYPN ---
Subjective Remarks Patient seen in dayroom with floor staff, chart review, continues to show concern for at times assistance with other patients, staff to intervene to help her with appropriate boundaries. Patient continues somewhat confused disoriented, compliant medications. Review of Systems Except as stated in HPI: all other systems reviewed are Neg Objective Alert: Yes [place]: Person Mood: Anxious, Calm Affect: Labile Memory Intact: Comment (poor) Hallucinations: Other (denies) Delusions: No Delusion Type: Other (only vigilant) Suicidal: Ideation (denies) Homicidal: Ideation (denies) Insight/Judgement Very poor Labs Test 10/01/16 06:42 Prothrombin Time 14.9 SEC Prothromb Time International 1.3 RATIO Ratio Date/Time Procedure Status Source Growth 09/28/16 13:13 Urine Culture - Final Complete Urine Clean Catch 50-100,000 CFU/ML MIXED GRAM POSITIVE... Vitals/IOs Vital Signs Date Time Temp Pulse Resp B/P Pulse Ox O2 Delivery O2 Flow Rate FiO2 10/01/16 06:23 98.4 77 18 120/74 93 Intake and Output 09/30/16 09/30/16 09/30/16 07:59 15:59 23:59 Intake Total 1080 ml Balance 1080 ml Assessment & Plan Problem List: (1) OTHER ALZHEIMER'S DISEASE ICD Code: G30.8 Assessment & Plan Estimated LOS: days patient continues confused though at times superficial and intrusive into other patient's personal space. Though she does respond well to interventions Justification for Cont. Inpt. At this time patient would significantly decompensate if placed in a lower level of care Discharge Planning To be determined Request HC Surrog/Guard Advoc?: Yes Butch Page MD Oct 01, 2016 13:47
[2016-10-01] MEDS ORDERED: WARFARIN SOD 7.5 MG TAB PO SCH (16:00)
[2016-10-01] MEDS ORDERED: WARFARIN SOD 5 MG TAB PO SCH (16:00)
[2016-10-01 18:00] VITALS: BP 145/82; PULSE 61; RESP 18; TEMP 98.3; O2SAT 96
[2016-10-01 22:52] VITALS: BP 145/82; PULSE 61; RESP 18; TEMP 98.3; O2SAT 96
[2016-10-02 06:00] VITALS: BP 121/81; PULSE 90; RESP 16; TEMP 98.8; O2SAT 99
[2016-10-02 08:01] LABS: INTERNATIONAL NORMALIZED RATIO 1.6 RATIO
[2016-10-02] MEDS: QUEtiapine FUMARATE 25 MG TAB PO SCH (09:49)
[2016-10-02] MEDS: amLODIPine BESYLATE 5 MG TAB PO SCH (09:49)
[2016-10-02] MEDS: NITROFURANTOIN MONOHYD MACROCR 100 MG CAP PO SCH (09:49)
[2016-10-02] MEDS ORDERED: AMLO5 PO (10:39)
[2016-10-02] MEDS ORDERED: MACR100C2 PO (10:39)
[2016-10-02] MEDS ORDERED: QUET1TAB7 PO (10:39)
[2016-10-02] MEDS ORDERED: COUM6TAB PO (10:39)
--- NOTE | 2016-10-02 10:53 | HHI.DS ---
Psychiatry Discharge Summary Inpatient Psychiatric care?: Yes Advance Directive: No Mental Health AdvanceDirective: No Health Care Proxy: Yes Admission Admission Date Sep 28, 2016 at 14:27 Admission Diagnosis: (1) Alzheimer's dementia with behavioral disturbance ICD Code: G30.[address] Page's H&P: Patient is a 75-year-old white female, born in [place], comes here under the [employer] act by the [place] [employer] dated 09/28/16 at 9:30 AM. Stating received a call of a mentally ill person, upon arrival made contact with RP who stated his has been having numerous mental breakdowns. RP advised his has threatened to kill herself numerous times. Patient seen screened in the ED urine toxicology negative. Of and chest patient also seen here for similar episode of depression in relationship issues with her under visit [id number] on 08/27/[address] Andrez Polanco and released without medication. At the present time patient sitting quietly in her room with nurse Caio and medical student Magdalene. Patient was diffusely confused as to place time and situation, speaking in rapid pressured speech markedly disorganized with loose associations. Very poor personal boundaries to the point where she went over and not his her female roommate was lying in bed. She also referred to me as as "sweetheart "preferred to other staff as "honey patient is statements of living with her , with her daughter, and with her son though at times this was confusing also. When asked about relationship she says she loves them all and they all love her. When asked about any alcohol or drug use she was somewhat vague but then [place] me over to her house to have some schnapps patient denied and was vague about prior psychiatric contact hospitalization of psychotropic medications. She did denies suicidality homicidality voices or visions. The deny any prior physical or sexual abuse. Denied any substances of abuse or smoking. She also denied history of mental health issues with her family. In any event at the present time patient does meet criteria for involuntary psychiatric hospitalization of the [place] thus I'll do first opinion requests a second opinion. I also feel she does not have capacity thus I'll ask for healthcare surrogate and guardian advocate. Patient is on anticoagulants perhaps for prior DVTs. With the hospitalist consulting us with that we'll have a counselor attempt to call the patient's family arrange for meeting tomorrow morning. We need to discuss with patient's and family possible placement issues. At the present time will refrain from any psychotropic medications and observe her behavior until family meeting tomorrow On my examination today: Patient seen and examined. Chart reviewed. On my examination today, the patient is calm and pleasant but confused, please see full mental status testing below. She has no recollection of the circumstances of the [place]. She denies any issues with mood. She denies any suicidal or homicidal ideation. She denies any audiovisual hallucinations and I can elicit no delusional beliefs. She in particular does not describe any beliefs that her is having an affair. Psychiatric interview is somewhat limited because of degree of cognitive impairment. Past psychiatric history: Patient is likely an unreliable historian but denies any history of psychiatric diagnosis. She denies any history of inpatient or outpatient psychiatric treatment. She denies any history of suicide attempts, although I do see notation in the chart that she presented in 2008 with a multidrug overdose. Family history: The patient denies a family history of mental illness. Chemical dependency history: The patient denies any abuse of drugs or alcohol. Toxicology on presentation here was negative. Social history: Patient reports that she lives at home. Initially she says she lives with her son and daughter. She forgets that she is but when I ask her directly she says that she lives at home with her , son and daughter. She cannot remember her level of education. She cannot remember her work history. Social history is fairly limited because of cognitive impairment for autobiographical details. Tobacco Use In Past 30 Days: No Tobacco Past 30 Days Alcohol Use: Monthly or Less Hospital Course Issues hospital course was significant for patients intrusiveness into other patients and staff's personal space, blood behaviors done in a supportive manner attempts to assist and help with patient's. There is no other behavioral issues, patient's compliant with medications. Denying suicidality homicidality voices or visions. We did meet today with patient and patient's son [place] [address]. Patient case was continue for a week. After [place] [address] he met with patient's son and daughter. They wish to take their mother home with them today they're making arrangements for home health care. They have good insight into patient's behavior and need for 24-hour supervision. We did discuss the outlook for her disease and the need perhaps for future more restrictive placement options. Family is willing to take on this responsibility that appear to be a quite close loving family thus patient will be discharged today to her son and daughter, Rx 1 month, refer to inge for mental health follow-up, follow-up with her PCP, and referral to home health care which patient's son and daughter, at their request will arrange on their own Results Blood Pressure 121 / 81 Vital Signs Date Time Temp Pulse Resp B/P Pulse Ox O2 Delivery O2 Flow Rate FiO2 10/02/16 06:00 98.8 90 16 121/81 99 Laboratory Tests Test 09/30/16 10/01/16 10/02/16 07:11 06:42 06:54 Prothrombin Time 14.7 SEC 14.9 SEC 18.0 SEC (9.8-11.6) (9.8-11.6) (9.8-11.6) Laboratory Results Test 09/29/16 07:01 Hemoglobin A1c 5.3 % (4.3-6.0) Triglycerides Level 72 MG/DL (42-150) Cholesterol Level 241 MG/DL (120-200) LDL Cholesterol 152 MG/DL (0-99) HDL Cholesterol 74.3 MG/DL (40.0-60.0) Summary of Procedures None done Imaging Last Impressions Head CT 09/28/16 0000 Signed Impressions: Service Date/Time: Wednesday, September 28, 2016 12:26 - CONCLUSION: No acute intracranial abnormality. Butch Decker MD Pending results at discharge: No Medications # of Antipsychotic meds at D/C: 1 Approp Antipsych med options 1 - Minimum of three failed multiple trials of monotherapy. 2 - Documented plan to taper to monotherapy due to previous use of multiple meds OR cross-taper in progress at D/C. 3 - Documentation of augmentation of Clozapine. 4 - Justification other than those listed in allowable values 1-3, document here : Discharge Discharge Date: Oct 02, 2016 Discharge Diagnosis: (1) Alzheimer's dementia with behavioral disturbance Diagnosis: Principal ICD Code: G30.8 Mental Status Exam at Disch Alert diffusely confused though quite pleasant somewhat childish white female appearing stated age, she has normal active, mood is euthymic to somewhat elevated with slight increased range and intensity of her affect. Speech rate and rhythm are somewhat increased with marked [place]ian accent is mildly tangential , no auditory or visual hallucinations noted no delusions noted into judgment is poor cognition is compromised Pt Condition on Discharge: Stable Discharge Disposition: Discharge Home Discharge Instructions Diet Instructions: As Tolerated, No Restrictions Activities you can perform: Regular-No Restrictions Scheduled Appointment: inge Discharge Time > 30 minutes Discharge/Advance Care Plan Health Problems: (1) OTHER ALZHEIMER'S DISEASE Goals to promote your health * To prevent worsening of your condition and complications * To maintain your health at the optimal level Directions to meet your goals Take your medications as prescribed Follow your dietary instruction Follow activity as directed Keep your appointments as scheduled Take your immunizations and boosters as scheduled If your symptoms worsen call your PCP, if no PCP go to Urgent Care Center or Emergency Room For 23/02 questions related to your inpatient stay or results of tests pending at discharge, please contact Dr. Butch Page at Smoking is Dangerous to Your Health. Avoid second hand smoking Problem Qualifiers (1) Alzheimer's dementia with behavioral disturbance: Qualified Code: G30.8 - Alzheimer's disease of other onset with behavioral disturbance Butch Page MD Oct 02, 2016 10:53
--- NOTE | 2016-10-02 12:56 | PD.PN.STU ---
Subjective Remarks "I am so happy!" Objective Vitals Vital Signs Date Time Temp Pulse Resp B/P Pulse Ox O2 Delivery O2 Flow Rate FiO2 10/02/16 06:00 98.8 90 16 121/81 99 10/01/16 22:52 98.3 61 18 145/82 96 10/01/16 18:00 98.3 61 18 145/82 96 I/O 10/01/16 10/01/16 10/01/16 10/02/16 10/02/16 10/02/16 07:00 15:00 23:00 07:00 15:00 23:00 Intake Total 360 ml 120 ml 0 ml Balance 360 ml 120 ml 0 ml Intake Oral 360 ml 120 ml 0 ml # Voids 3 1 1 Result Diagram: 09/28/16 1120 09/29/16 0701 Objective Remarks Patient sleeping comfortably in bed. Seen [place] [address] this morning with son. Patient has good support network at home with , son and daughter. Son agreeable to take home patient following DC and nursing home [facility] care will be attempted for patient. Patient and family agreeable with plan. A/P Assessment and Plan Patient stable for DC. No acute distress or events. Son with patient this morning in [place] [address], expressing supportive family network outside of hospital. Agrees to take patient home under his care while attempting intermediate school teacher placement in an [facility]. She is agreeable with plan and understands the importance of compliance with medications. Magdalene Huang M3 Oct 02, 2016 12:56
[2016-10-02] MEDS ORDERED: WARFARIN SOD 6 MG TAB PO SCH (16:00)
== END 2016-10-02 14:00 | disposition home or self-care (01) | DRG 57 ==
LOC: NEPE 10:38 → NEDA 14:27 → H250 15:23
PROVIDERS: ADMIT Psychiatry & Neurology Psychiatry; ATTEND Psychiatry & Neurology Psychiatry
DX: G30.9 Alzheimer's disease, unspecified (principal); F02.81 Dementia in other diseases classified elsewhere, unspecified severity, with behavioral disturbance; R45.851 Suicidal ideations; I10 Essential (primary) hypertension; F32.9 Major depressive disorder, single episode, unspecified; Z86.718 Personal history of other venous thrombosis and embolism; Z79.01 Long term (current) use of anticoagulants; M19.90 Unspecified osteoarthritis, unspecified site
CPT/HCPCS: 70450; 80048; 80053; 80061; 80307; 80320; 80329; 81001; 83036; 84443; 85025; 85610; 87086; 93005; G0480

== ENCOUNTER 2016-10-13 01:38 | Observation (INO) | payer MEDICARE, OTHER ==
[2016-10-13] VITALS (9 sets, daily range): BP systolic 104–174; BP diastolic 62–90; PULSE 58–94; RESP 16–18; TEMP 98–98.7; O2SAT 96–100
[~2016-10-13] VITALS: Ht 167.6 cm; Wt 65.0 kg
[~2016-10-13 01:38] MED LIST changes: +AMLO5 PO; -COUM10TA PO; -COUM5TAB PO; +COUM6TAB PO; -DIPH1TAB36 PO; -LIPI80TA16 PO; +MACR100C2 PO; -MELO15TA2 PO; +QUET1TAB7 PO
[2016-10-13] MEDS ORDERED: SODIUM CHLORIDE 0.9% FLUSH 5 ML FLUSH IVF PRN (02:00)
[2016-10-13 02:12] LABS: AUTOMATED NEUTROPHIL # 5.9 TH/MM3 (1.8-7.7); BASOPHIL # 0.1 TH/MM3 (0-0.2); EOSINOPHIL # 0.1 TH/MM3 (0-0.4); EOSINOPHIL % 1.2 % (0.0-4.0); HEMATOCRIT 40.3 % (35.0-46.0); HEMO FLAGS DIFF FINAL; LYMPH % 18.2 % (9.0-44.0); LYMPHOCYTE # 1.5 TH/MM3 (1.0-4.8); MEAN CORPUSCULAR HEMOGLOBIN 31.8 PG (27.0-34.0); MEAN CORPUSCULAR HGB CONC 34.2 % (32.0-36.0); MONO % 6.9 % (0.0-8.0); NEUT % 72.7 % (16.0-70.0); PLATELET COUNT 176 TH/MM3 (150-450); RED BLOOD COUNT 4.33 MIL/MM3 (4.00-5.30); RED CELL DISTRIBUTION WIDTH 13.5 % (11.6-17.2); WHITE BLOOD COUNT 8.1 TH/MM3 (4.0-11.0)
[2016-10-13 02:18] LABS: AMPHETAMINE, URINE NEG (NEG); BARBITURATES, URINE NEG (NEG); BLOOD, URINE SMALL (NEG); COCAINE, URINE NEG (NEG); GLUCOSE,URINE NEG (NEG); KETONE, URINE NEG (NEG); MUCUS URINE FEW /lpf (OCC); NITRITE,URINE NEG (NEG); PH, URINE 6.5 (5.0-8.5); URINE COLOR LIGHT-YELLOW (YELLW/STRAW)
[2016-10-13 02:19] LABS: COMMENT (UR) CATH-CULT NOT IND; CULTURE IF INDICATED CATH CULTURE NOT IND
[2016-10-13 02:23] LABS: INTERNATIONAL NORMALIZED RATIO 2.1 RATIO; PROTHROMBIN TIME - PATIENT 23.9 SEC (9.8-11.6)
[2016-10-13 02:32] LABS: ALT (GPT) 22 U/L (10-53); ANION GAP 9 MEQ/L (5-15); AST (GOT) 18 U/L (15-37); BLOOD UREA NITROGEN 14 MG/DL (7-18); CHLORIDE 108 MEQ/L (98-107); GLOMERULAR FILTRATION RATE 86 ML/MIN (>89); POTASSIUM 3.5 MEQ/L (3.5-5.1); SODIUM (NA) 144 MEQ/L (136-145)
[2016-10-13 02:42] LABS: ALKALINE PHOSPHATASE 79 U/L (45-117); CREATINE KINASE 118 U/L (26-192); TOTAL BILIRUBIN ADULT 0.3 MG/DL (0.2-1.0)
--- NOTE | 2016-10-13 03:29 | RADRPT ---
EXAM DATE/TIME: 10/13/2016 02:53 [facility] COMPARISON: CT BRAIN W/O CONTRAST, September 28, 2016, 12:26. INDICATIONS : Altered mental status. RADIATION DOSE: 29.35 CTDIvol (mGy) MEDICAL HISTORY : Hypertension. Alzheimer's. SURGICAL HISTORY : Cholecystectomy. Appendectomy. section.Tubal ligation. Breast reduction. Polypectomy. ENCOUNTER: Initial ACUITY: 1 day PAIN SCALE: Non-responsive LOCATION: cranial TECHNIQUE: Multiple contiguous axial images were obtained of the head. Using automated exposure control and adj ustment of the mA and/or kV according to patient size, radiation dose was kept as low as reasonably a chievable to obtain optimal diagnostic quality images. FINDINGS: CEREBRUM: Ventricles, sulci, and cisterns are diffusely prominent indicating diffuse atrophy, unchanged. No ev idence of midline shift, mass lesion, hemorrhage or acute infarction. No extra-axial fluid collectio ns are seen. POSTERIOR FOSSA: The cerebellum and brainstem are intact. The 4th ventricle is midline. The cerebellopontine angle i s unremarkable. EXTRACRANIAL: The visualized portion of the orbits is intact. SKULL: The calvaria is intact. No evidence of skull fracture. CONCLUSION: No acute intracranial findings. Manuelito Greene MD on October 13, 2016 at 3:23 Board Certified Radiologist. This report was verified electronically.
--- NOTE | 2016-10-13 03:48 | RADRPT ---
EXAM DATE/TIME: 10/13/2016 02:53 [facility] COMPARISON: No previous studies available for comparison. INDICATIONS : Trauma, found on ground. RADIATION DOSE: 17.91 CTDIvol (mGy) MEDICAL HISTORY : Hypertension. Alzheimer's. SURGICAL HISTORY : Cholecystectomy. Appendectomy. section.Tubal ligation. Breast reduction. Polypectomy. ENCOUNTER: Initial ACUITY: 1 day PAIN SCALE: Non-responsive LOCATION: neck TECHNIQUE: Volumetric scanning of the cervical spine was performed. Multiplanar reconstructions in the sagittal, coronal and oblique axial planes were performed. Using automated exposure control and adjustment o f the mA and/or kV according to patient size, radiation dose was kept as low as reasonably achievable to obtain optimal diagnostic quality images. FINDINGS: VERTEBRAE: Normal vertebral body height. ALIGNMENT: No evidence of subluxation. C2-C3: Moderate severity facet arthrosis. No evidence of focal disc protrusion. Central canal normal diamete r. Neural foraminal diameters within normal limits. C3-C4: Moderate severity bilateral facet arthrosis and broad-based disc bulge. Central canal diameter within normal limits. Neural foraminal diameters within normal limits. C4-C5: Broad-based disc osteophyte complex and right greater than left facet arthrosis. Central canal diamet er within normal limits. Neural foraminal diameters within normal limits. C5-C6: Broad-based disc osteophyte complex. Bilateral facet arthrosis. Mild central canal narrowing. Mild le ft neural foraminal narrowing. C6-C7: No evidence of focal disc protrusion. Central canal normal diameter. Neural foraminal diameters withi n normal limits. C7-T1: No evidence of focal disc protrusion. Central canal normal diameter. Neural foraminal diameters withi n normal limits. CONCLUSION: No evidence of fracture. Multilevel degenerative findings. Manuelito Greene MD on October 13, 2016 at 3:40 Board Certified Radiologist. This report was verified electronically.
--- NOTE | 2016-10-13 04:04 | PD ---
HPI Chief Complaint: Altered Mental Status Time Seen by Provider: 01:48 Travel History International Travel<30 days: No Contact w/Intl Traveler<30days: No Traveled to known affect area: No History of Present Illness HPI This is a 75-year-old female who has a history of dementia who presents to the emergency department having been lost from her house at around 10 PM and found in the [place] laying down on the ground. She was not responsive to EMS. She was moving everything and making eye contact and making some sounds but wasn't talking and wasn't cooperating. It's unclear if she got her. She was just recently admitted for dementia with behavioral disturbances. She lives with her who is also elderly. PFSH Past Medical History Arthritis: Yes (GENERALIZED) Autoimmune Disease: No Blood Disorders: No Anxiety: No Depression: Yes Cancer: No Cardiovascular Problems: Yes (as a child ) High Cholesterol: Yes Diabetes: No Diminished Hearing: No Endocrine: No Gastrointestinal Disorders: Yes Genitourinary: Yes Headaches: No Hepatitis: Yes Hypertension: Yes Immune Disorder: No Implanted Vascular Access Dvce: Yes Musculoskeletal: Yes (CRAMPING IN HANDS & FEET) Neurologic: Yes Psychiatric: Yes (Alzheimer's Disease, suicidal ideations and one prior attempt in 2008.) Reproductive: No Respiratory: No Seizures: No Thyroid Disease: No Menopausal: Yes Tubal Ligation: Yes Past Surgical History Abdominal Surgery: Yes (APPENDECTOMY; CHOLECYSTECTOMY; COLONOSCOPIES WITH POLYPECTOMY) Appendectomy: Yes Cholecystectomy: Yes Gynecologic Surgery: Yes ( X 2; TUBAL LIGATION) Joint Replacement: Yes (JUAN C. TOTAL KNEES) Other Surgery: Yes (BREAST REDUCTION, OTHER UNKOWN SURGERIES) Social History Alcohol Use: No Tobacco Use: No Substance Use: Yes Allergies-Medications (Allergen,Severity, Reaction): Coded Allergies: Codeine (Verified Allergy, Mild, 12/26/08) Reported Meds & Prescriptions Reported Meds & Active Scripts Active Coumadin (Warfarin) 6 Mg Tab 6 Mg PO DAILY@16 Quetiapine (Quetiapine Fumarate) 25 Mg Tab 25 Mg PO BID Macrobid (Nitrofurantoin Monoh/Nitrofur Macro) 100 Mg Cap 100 Mg PO BIDPC Norvasc (Amlodipine Besylate) 5 Mg Tab 5 Mg PO DAILY Macrobid (Nitrofurantoin Monoh/Nitrofur Macro) 100 Mg Cap 100 Mg PO BID 5 Days Review of Systems ROS Limitations: Poor Historian Physical Exam Narrative GENERAL:Well appearing, no acute distress SKIN: Warm and dry. HEAD: Atraumatic. Normocephalic. EYES: Pupils equal and round. No injection or drainage. ENT: Moist mucous membranes NECK: Trachea midline. CARDIOVASCULAR: Regular rate and rhythm. No murmur appreciated. RESPIRATORY: Clear to auscultation. Breath sounds equal bilaterally. GASTROINTESTINAL: Abdomen soft, non-tender, nondistended. MUSCULOSKELETAL: No obvious deformities. NEUROLOGICAL: Awake and alert. Moaning, not answering questions appropriately. No obvious cranial nerve deficits. Moving all extremities. PSYCHIATRIC :poor insight and judgment. Data Data Last Documented VS Vital Signs Date Time Temp Pulse Resp B/P Pulse Ox O2 Delivery O2 Flow Rate FiO2 10/13/16 01:41 98.0 83 16 157/90 98 Orders Electrocardiogram (10/13/16 01:49) Complete Blood Count With Diff (10/13/16 01:49) Comprehensive Metabolic Panel (10/13/16 01:49) Prothrombin Time / Inr (Pt) (10/13/16 01:49) Act Partial Throm Time (Ptt) (10/13/16 01:49) Troponin I (10/13/16 01:49) Thyroid Stimulating Hormone (10/13/16 01:49) Urinalysis - C+S If Indicated (10/13/16 01:49) Ct Brain W/O Iv Contrast(Rout) (10/13/16 01:49) Blood Glucose (10/13/16 01:49) Ecg Monitoring (10/13/16 01:49) Iv Access Insert/Monitor (10/13/16 01:49) Oximetry (10/13/16 01:49) Sodium Chloride 0.9% Flush (Ns Flush) (10/13/16 02:00) Drug Screen, Random Urine (10/13/16 01:49) Alcohol (Ethanol) (10/13/16 01:49) Creatine Kinase (Cpk) (10/13/16 01:49) Ct Cerv Spine W/O Contrast (10/13/16 ) Labs Laboratory Tests Test 10/13/16 01:50 White Blood Count 8.1 TH/MM3 Red Blood Count 4.33 MIL/MM3 Hemoglobin 13.8 GM/DL Hematocrit 40.3 % Mean Corpuscular Volume 93.0 FL Mean Corpuscular Hemoglobin 31.8 PG Mean Corpuscular Hemoglobin 34.2 % Concent Red Cell Distribution Width 13.5 % Platelet Count 176 TH/MM3 Mean Platelet Volume 8.8 FL Neutrophils (%) (Auto) 72.7 % Lymphocytes (%) (Auto) 18.2 % Monocytes (%) (Auto) 6.9 % Eosinophils (%) (Auto) 1.2 % Basophils (%) (Auto) 1.0 % Neutrophils # (Auto) 5.9 TH/MM3 Lymphocytes # (Auto) 1.5 TH/MM3 Monocytes # (Auto) 0.6 TH/MM3 Eosinophils # (Auto) 0.1 TH/MM3 Basophils # (Auto) 0.1 TH/MM3 CBC Comment DIFF FINAL Differential Comment Prothrombin Time 23.9 SEC Prothromb Time International 2.1 RATIO Ratio Activated Partial 32.0 SEC Thromboplast Time Urine Color LIGHT-YELLOW Urine Turbidity CLEAR Urine pH 6.5 Urine Specific [place] 1.010 Urine Protein NEG mg/dL Urine Glucose (UA) NEG mg/dL Urine Ketones NEG mg/dL Urine Occult Blood SMALL Urine Nitrite NEG Urine Bilirubin NEG Urine Urobilinogen LESS THAN 2.0 MG/DL Urine Leukocyte Esterase NEG Urine RBC 6 /hpf Urine WBC 1 /hpf Urine Mucus FEW /lpf Microscopic Urinalysis Comment CATH-CULT NOT IND Sodium Level 144 MEQ/L Potassium Level 3.5 MEQ/L Chloride Level 108 MEQ/L Carbon Dioxide Level 27.0 MEQ/L Anion Gap 9 MEQ/L Blood Urea Nitrogen 14 MG/DL Creatinine 0.67 MG/DL Estimat Glomerular Filtration 86 ML/MIN Rate Random Glucose 100 MG/DL Calcium Level 8.7 MG/DL Total Bilirubin 0.3 MG/DL Aspartate Amino Transf 18 U/L (AST/SGOT) Alanine Aminotransferase 22 U/L (ALT/SGPT) Alkaline Phosphatase 79 U/L Total Creatine Kinase 118 U/L Troponin I LESS THAN 0.02 NG/ML Total Protein 6.8 GM/DL Albumin 3.7 GM/DL Thyroid Stimulating Hormone 1.900 uIU/ML 3rd Gen Urine Opiates Screen NEG Urine Barbiturates Screen NEG Urine Amphetamines Screen NEG Urine Benzodiazepines Screen NEG Urine Cocaine Screen NEG Urine Cannabinoids Screen NEG Ethyl Alcohol Level LESS THAN 3 MG/DL MDM Medical Decision Making Medical Screen Exam Complete: Yes Emergency Medical Condition: Yes Interpretation(s) Afebrile, no tachycardia, hypertensive No leukocytosis Electrolytes are reassuring Troponin is normal TSH is 1.9 Urine drug screen is negative Alcohol is negative Urinalysis: Scant red blood cells CT head and cervical spine is negative Differential Diagnosis Dementia, adjustment reaction, seizure, intracranial hemorrhage, stroke Narrative Course This is a 75-year-old female who has a history of dementia got lost from her house and was found in the lip. When EMS arrived she was poorly responsive, mumbling and making eye contact but not making any sense. In the ER her mental status dramatically improved and she was able to talk but is still quite confused which I suspect is her baseline. She is placed on a monitor and an IV was established. Labs were obtained which were all reassuring. CT of the head was negative for intracranial hemorrhage. I spoke to the patient's who is elderly and doesn't feel like he can take care of her anymore. Patient will be admitted for case management intervention. Diagnosis Primary Impression: Altered mental status Qualified Code: R41.82 - Altered mental status, unspecified altered mental status type Admitting Information Admitting Physician Requests: Observation Mary Hull MD Oct 13, 2016 04:04
[2016-10-13] MEDS ORDERED: SODIUM CHLORIDE 0.9% FLUSH 5 ML FLUSH FLUSH PRN (04:15)
[2016-10-13] MEDS ORDERED: MAGNESIUM HYDROXIDE SUSP 30 ML CUP PO PRN (04:15)
[2016-10-13] MEDS ORDERED: NALOXONE HCL 0.4 MG/ML AMP IV PRN (04:15)
[2016-10-13] MEDS ORDERED: ONDANSETRON HCL 4 MG/2 ML VIAL IVP PRN (04:15)
[2016-10-13] MEDS ORDERED: ACETAMINOPHEN 325 MG TAB PO PRN (04:15)
[2016-10-13] MEDS ORDERED: HALOPERIDOL LACTATE 5 MG/ML AMP ONE (05:34)
[2016-10-13] MEDS ORDERED: HALOPERIDOL LACTATE 5 MG/ML AMP IV PUSH ONE (05:45)
[2016-10-13] MEDS: SODIUM CHLORIDE 0.9% FLUSH 5 ML FLUSH FLUSH SCH ×2 (09:00→20:04)
--- NOTE | 2016-10-13 09:40 | HHI.HP ---
HPI Service [facility] Primary Care Physician Andrez Marino, DO Admission Diagnosis altered mental status Diagnoses: Chief Complaint: pleasantly confused, BA, found wandering Travel History International Travel<30 Days: No Contact w/Intl Traveler <30 Da: No Traveled to Known Affected Are: No History of Present Illness The patient is a pleasantly confused 75 yo female with history of dementia, Alzheimer's Disease, suicidal ideations and one prior attempt in 2008, who presents to the emergency department having been lost from her house at around 10 PM last night and found in the [place] laying down on the ground. She was not responsive to EMS. She was moving everything and making eye contact and making some sounds but wasn't talking and wasn't cooperating. It's unclear if she got her. She was just recently admitted for dementia with behavioral disturbances. She lives with her who is also elderly. Patient however is oriented by name only, and knows she is in the hospital. She doesn't know why she is in the hospital . Last she she remember was sleeping. She doesn't appear in distress. She has no complaints. Review of Systems ROS Limitations: Clinical Condition, Altered Mental Status, Poor Historian Except as stated in HPI: all other systems reviewed are Neg 12 ROS reviewed and negative except as stated in HPI Past Family Social History Past Medical History Alzheimer's Disease, suicidal ideations and one prior attempt in 2008, Past Surgical History Per records and by seeing prior surgical scars Cholecystectomy, CS, appendectomy Allergies: Coded Allergies: Codeine (Verified Allergy, Mild, 12/26/08) Family History Doesn't know. Says parents and they were in [place]. Social History Denies EtOH use, tobacco use or illicit drug use. Physical Exam Vital Signs Vital Signs Date Time Temp Pulse Resp B/P Pulse Ox O2 Delivery O2 Flow Rate FiO2 10/13/16 09:17 98.2 66 18 143/83 100 10/13/16 07:14 68 18 104/62 100 Room Air 10/13/16 05:35 94 16 136/72 97 Room Air 10/13/16 02:46 58 16 174/88 97 Room Air 10/13/16 01:41 98.0 83 16 157/90 98 10/13/16 01:40 98 Physical Exam GENERAL: This is a pleasantly confuse 75 yo female, in bed, well-nourished, well -developed patient, in no apparent distress. SKIN: No rashes, ecchymoses or lesions. Cool and dry. HEAD: Atraumatic. Normocephalic. No temporal or scalp tenderness. EYES: Pupils equal round and reactive. Extraocular motions intact. No scleral icterus. No injection or drainage. ENT: Nose without bleeding, purulent drainage or septal hematoma. Throat without erythema, tonsillar hypertrophy or exudate. Uvula midline. Airway patent. NECK: Trachea midline. No JVD or lymphadenopathy. Supple, nontender, no meningeal signs. CARDIOVASCULAR: Regular rate and rhythm without murmurs, gallops, or rubs. RESPIRATORY: Clear to auscultation. Breath sounds equal bilaterally. No wheezes , rales, or rhonchi. GASTROINTESTINAL: Prior old surgical scars on abdomen. Abdomen soft, non-tender , nondistended. No hepato-splenomegaly, or palpable masses. No guarding. MUSCULOSKELETAL: Extremities without clubbing, cyanosis, or edema. No joint tenderness, effusion, or edema noted. No calf tenderness. Negative Homans sign bilaterally. NEUROLOGICAL: Cooperative, poor judgement. Alert and oriented by name and knows she is in the hospital. Follows all commands. Cranial nerves II through XII intact. Motor and sensory grossly within normal limits. Five out of 5 muscle strength in all muscle groups. Normal speech. Laboratory Laboratory Tests Test 10/13/16 01:50 White Blood Count 8.1 Red Blood Count 4.33 Hemoglobin 13.8 Hematocrit 40.3 Mean Corpuscular Volume 93.0 Mean Corpuscular Hemoglobin 31.8 Mean Corpuscular Hemoglobin 34.2 Concent Red Cell Distribution Width 13.5 Platelet Count 176 Mean Platelet Volume 8.8 Neutrophils (%) (Auto) 72.7 Lymphocytes (%) (Auto) 18.2 Monocytes (%) (Auto) 6.9 Eosinophils (%) (Auto) 1.2 Basophils (%) (Auto) 1.0 Neutrophils # (Auto) 5.9 Lymphocytes # (Auto) 1.5 Monocytes # (Auto) 0.6 Eosinophils # (Auto) 0.1 Basophils # (Auto) 0.1 CBC Comment DIFF FINAL Differential Comment Prothrombin Time 23.9 Prothromb Time International 2.1 Ratio Activated Partial 32.0 Thromboplast Time Urine Color LIGHT-YELLOW Urine Turbidity CLEAR Urine pH 6.5 Urine Specific [place] 1.010 Urine Protein NEG Urine Glucose (UA) NEG Urine Ketones NEG Urine Occult Blood SMALL Urine Nitrite NEG Urine Bilirubin NEG Urine Urobilinogen LESS THAN 2.0 Urine Leukocyte Esterase NEG Urine RBC 6 Urine WBC 1 Urine Mucus FEW Microscopic Urinalysis Comment CATH-CULT NOT IND Sodium Level 144 Potassium Level 3.5 Chloride Level 108 Carbon Dioxide Level 27.0 Anion Gap 9 Blood Urea Nitrogen 14 Creatinine 0.67 Estimat Glomerular Filtration 86 Rate Random Glucose 100 Calcium Level 8.7 Total Bilirubin 0.3 Aspartate Amino Transf 18 (AST/SGOT) Alanine Aminotransferase 22 (ALT/SGPT) Alkaline Phosphatase 79 Total Creatine Kinase 118 Troponin I LESS THAN 0.02 Total Protein 6.8 Albumin 3.7 Thyroid Stimulating Hormone 1.900 3rd Gen Urine Opiates Screen NEG Urine Barbiturates Screen NEG Urine Amphetamines Screen NEG Urine Benzodiazepines Screen NEG Urine Cocaine Screen NEG Urine Cannabinoids Screen NEG Ethyl Alcohol Level LESS THAN 3 Result Diagram: 10/13/16 0150 10/13/16 0150 Assessment and Plan Assessment and Plan This is a 75-year-old female who has a history of dementia got lost from her house and was found in the lip. When EMS arrived she was poorly responsive, mumbling and making eye contact but not making any sense. In the ER her mental status dramatically improved and she was able to talk but is still quite confused which I suspect is her baseline. She is placed on a monitor and an IV was established. Labs were obtained which were all reassuring. CT of the head was negative for intracranial hemorrhage. I spoke to the patient's who is elderly and doesn't feel like he can take care of her anymore. Patient will be admitted for case management intervention. Worsening dementia Patient with Alzheimer's Disease, suicidal ideations and one prior attempt in [address] head is normal VS normal .Labs are normal UA normal Sitter at bedside Consult psychiatry Restart home meds. Case management consulted for DC plan DVT ppx with SCDs/TEDs Patient is cleared medically to DC to inpatient psych Discussed Condition With Patient, nurse. Sho Salvador MD Oct 13, 2016 09:40 TSH is 1.9 Urine drug screen is negative Alcohol is negative Urinalysis: Scant red blood cells CT head and cervical spine is negative Differential Diagnosis Dementia, adjustment reaction, seizure, intracranial hemorrhage, stroke Narrative Course This is a 75-year-old female who has a history of dementia got lost from her house and was found in the lip. When EMS arrived she was poorly responsive, mumbling and making eye contact but not making any sense. In the ER her mental status dramatically improved and she was able to talk but is still quite confused which I suspect is her baseline. She is placed on a monitor and an IV was established. Labs were obtained which were all reassuring. CT of the head was negative for intracranial hemorrhage. I spoke to the patient's who is elderly and doesn't feel like he can take care of her anymore. Patient will be admitted for case management intervention. Worsening dementia Patient with Alzheimer's Disease, suicidal ideations and one prior attempt in [address] head is normal VS normal .Labs are normal UA normal Sitter at bedside Consult psychiatry Restart home meds. Case management consulted for DC plan DVT ppx with SCDs/TEDs Discussed Condition With Patient, nurse. Sho Salvador MD Oct 13, 2016 09:40
[2016-10-13] MEDS ORDERED: QUEtiapine FUMARATE 25 MG TAB PO SCH (10:45)
--- NOTE | 2016-10-13 14:57 | EKG ---
Date Performed: 10/13/2016 Time Performed: 02:04:45 PTAGE: 75 years EKG: Sinus rhythm NORMAL ECG Compared to prior tracing no significant change PREVIOUS TRACING : 09/28/2016 12.19 DOCTOR: Samira Edwards Interpretating Date/Time 10/13/2016 14:51:23
--- NOTE | 2016-10-13 15:24 | PD.CONS ---
Provisional Diagnosis Admission Date Oct 13, 2016 at 04:12 Philo I. Dementia with behavioral disturbances Philo II. Deferred Philo III. No significant medical history other than dementia Philo IV. Increasing aggressive behavior Philo V. 35 History of Present Illness Service Psychiatry Consult Requested By Primary Care Physician Andrez Marino, DO LANDAVER[place] The patient is a pleasantly confused 75-year-old woman, domicile with her , with psychiatric history of dementia, Alzheimer's type, previous psychiatric admissions for behavioral dysregulation, aggressive behavior, one prior suicidal attempt in 2008, no significant medical history, who presents to the emergency department having been lost from her house at around 10 PM last night and found in the [place] laying down on the ground. She was not responsive to EMS. As per and daughter, Mr Robbin Fried and Susan Rodriguez, yesterday the patient was having actually a good day, but last night she left the house suddenly and got lost in the community and was found hours later by police. They say that the patient has been increasingly aggressive at home, dysfunctional, not being able to take care of himself anymore, but what is more scary for them is her disorganized behavior and thought and her paranoia against people. She says that in the last days she has been blaming her daughter or having sex with her and is stealing her money. She also has been talking to herself and imaginary with people. She also has been refusing to take her medication and he [place] location she wanted to leave the house. They both feel that the patient is not safe at home and she should be discharged to a fpc. On evaluation the patient is found in the ER calm , cooperative. She is pleasantly confused, disoriented in time and place, she knows that she is in the hospital, she doesn't know the name the hospital, she doesn't know the city and the state that she is at. She is unable to remember the date. She says that she is here because her daughter is plotting against her. She reports depressive symptoms and desire to be , but she doesn't endorse any suicidal plan. Patient denies alcohol and drug use. Review of Systems Constitutional: DENIES: Diaphoretic episodes, Fatigue, Fever, Weight gain, Weight loss, Chills, Dizziness, Change in appetite, Night Sweats Endocrine: DENIES: Abnorml menstrual pattern, Heat/cold intolerance, Polydipsia , Polyuria, Polyphagia Eyes: DENIES: Blurred vision, Diplopia, Eye inflammation, Eye pain, Vision loss , Photosensitivity, Double Vision Ears, nose, mouth, throat: DENIES: Tinnitus, Hearing loss, Vertigo, Nasal discharge, Oral lesions, Throat pain, Hoarseness, Ear Pain, Running Nose, Epistaxis, Sinus Pain, Toothache, Odynophagia Respiratory: DENIES: Apneas, Cough, Snoring, Wheezing, Hemoptysis, Sputum production, Shortness of breath Cardiovascular: DENIES: Chest pain, Palpitations, Syncope, Dyspnea on Exertion , PND, Lower Extremity Edema, Orthopnea, Claudication Musculoskeletal: COMPLAINS OF: Joint pain, Muscle aches, Stiffness, Joint Swelling, Back pain, Neck pain Integumentary: DENIES: Abnormal pigmentation, Pruritus, Rash, Nail changes, Breast masses, Breast skin changes, Nipple discharge Hematologic/lymphatic: DENIES: Bruising, Lymphadenopathy Immunologic/allergic: DENIES: Eczema, Urticaria Neurologic: DENIES: Abnormal gait, Headache, Localized weakness, Paresthesias, Seizures, Speech Problems, Tremor, Poor Balance Psychiatric: COMPLAINS OF: Confusion, Depression, Suicidal Ideation, DENIES: Anxiety, Mood changes, Hallucinations, Agitation, Homicidal Ideation, Delusions Past Family Social History Coded Allergies: Codeine (Verified Allergy, Mild, 12/26/08) Active Scripts Warfarin (Coumadin)6 Mg Tab6 Mg PO DAILY@16 #30 TAB Ref 0 Prov:Butch Page MD 10/02/16 Quetiapine 25 Mg Tab25 Mg PO BID #60 TAB Ref 0 Prov:Butch Page MD 10/02/16 Nitrofurantoin Monohydrate Macrocrystals (Macrobid)100 Mg [id number] Mg PO BIDPC # 4 CAP Ref 0 Prov:Butch Page MD 10/02/16 Amlodipine (Norvasc)5 Mg Tab5 Mg PO DAILY #30 TAB Ref 0 Prov:Butch aPge MD 10/02/16 Nitrofurantoin Monohydrate Macrocrystals (Macrobid)100 Mg [id number] Mg PO BID 5 Days Ref 0 Prov:Kira Travis MD 09/28/16 Current Medications Medications (Trade) Dose Ordered Sig/Joann Route Start Time Stop Time Status Last Admin (NS Flush) 2 ml UNSCH PRN FLUSH 10/13/16 04:15 (NS Flush) 2 ml BID FLUSH 10/13/16 09:00 (Tylenol) 650 mg Q4H PRN PO 10/13/16 04:15 (Zofran Inj) 4 mg Q6H PRN IVP 10/13/16 04:15 (Milk Of Magnesia Liq) 30 ml Q12H PRN PO 10/13/16 04:15 (Narcan Inj) 0.4 mg UNSCH PRN IV 10/13/16 04:15 (Norvasc) 5 mg DAILY PO 10/14/16 09:00 (SEROquel) 25 mg BID PO 10/13/16 10:45 10/13/16 13:42 Warfarin Sodium 6 mg 6 mg DAILY@16 PO 10/13/16 16:00 (Coumadin Consult Pharmacy) 0 ml @ 0 mls/hr UNSCH OTHER 10/13/16 10:45 Family History Denies Social History This was born and raised in [facility], she was an adopted child, she lives with her in [place], she has a son and a daughter, she just have an elemental education. Physical Exam Vital Signs Vital Signs Date Time Temp Pulse Resp B/P Pulse Ox O2 Delivery O2 Flow Rate FiO2 10/13/16 11:37 98.2 67 18 139/83 100 10/13/16 07:14 Room Air Mental Status Examination Appearance Elderly woman, age appearing, good hygiene, hospital [facility], superficially cooperative, calm Speech: Hesitant Orientation: Person Memory: Impaired (describe) Thought Process: Loose Association Thought Content: Paranoid Hallucination Type: None Attention and Concentration: Abnormal Suicidal Ideation: Yes Previous Suicide Attempts: Yes Homicidal Ideation: No Judgement: Poor Affect: Irritable, Sad Mood: Sad Motor Activity: Normal gait Assessment & Plan Problem List: (1) Dementia Assessment & Plan: The patient is a pleasantly confused 75-year-old woman, domicile with her , with psychiatric history of dementia, Alzheimer's type, previous psychiatric admissions for behavioral dysregulation, aggressive behavior, one prior suicidal attempt in 2008, no significant medical history, who presents to the emergency department having been lost from her house at around 10 PM last night and found in the [place] laying down on the ground. She was not responsive to EMS. As per and daughter, the patient has been increasingly aggressive and agitated at home, very paranoid, disorganized no taking care of herself, and very difficult to manage. On evaluation patient is disoriented, pleasantly confused, endorses suicidal ideation, no plan, and depressive symptoms. Current neuropsychiatric symptoms seems to be secondary to dysregulated neurocognitive process, she represents a danger to herself and others at this moment and will benefit of psychiatric admission for stabilization. Her daughter and her , both agree with this plan. We'll start Seroquel 25 mg twice a day to help with mood, psychosis and agitation. Patient can be transferred to 2500 units once medically clear. connection worker intervention to help family in the process of finding a fpc for the patient. ICD Code: F03.90 Assessment & Plan Estimated LOS: days Problem Qualifiers (1) Dementia: Kevin Dyer MD Oct 13, 2016 15:24
[2016-10-13] MEDS ORDERED: WARFARIN SOD 6 MG TAB PO SCH (16:00)
--- NOTE | 2016-10-13 20:28 | HHI.DCPOC ---
Discharge Care Plan Goals to Promote Your Health * To prevent worsening of your condition and complications * To maintain your health at the optimal level Directions to Meet Your Goals Take your medications as prescribed Follow your dietary instruction Follow activity as directed Keep your appointments as scheduled Take your immunizations and boosters as scheduled If your symptoms worsen call your PCP, if no PCP go to Urgent Care Center or Emergency Room Smoking is Dangerous to Your Health. Avoid second hand smoke Call the 24-hour hour crisis hotline for domestic abuse at Sho Salvador MD Oct 13, 2016 20:28
[2016-10-14 01:34] VITALS: BP 118/75; PULSE 86; RESP 18; TEMP 98.2; O2SAT 97
[2016-10-14 07:39] LABS: AUTOMATED NEUTROPHIL # 3.9 TH/MM3 (1.8-7.7); BASOPHIL # 0.1 TH/MM3 (0-0.2); EOSINOPHIL # 0.2 TH/MM3 (0-0.4); EOSINOPHIL % 2.8 % (0.0-4.0); HEMATOCRIT 41.7 % (35.0-46.0); HEMO FLAGS DIFF FINAL; LYMPH % 18.9 % (9.0-44.0); LYMPHOCYTE # 1.1 TH/MM3 (1.0-4.8); MEAN CELL VOLUME 92.4 FL (80.0-100.0); MEAN CORPUSCULAR HEMOGLOBIN 31.8 PG (27.0-34.0); MEAN CORPUSCULAR HGB CONC 34.4 % (32.0-36.0); MONO % 9.6 % (0.0-8.0); NEUT % 67.7 % (16.0-70.0); PLATELET COUNT 182 TH/MM3 (150-450); RED BLOOD COUNT 4.51 MIL/MM3 (4.00-5.30); RED CELL DISTRIBUTION WIDTH 13.6 % (11.6-17.2); WHITE BLOOD COUNT 5.8 TH/MM3 (4.0-11.0)
[2016-10-14 07:41] VITALS: BP 118/71; PULSE 67; RESP 18; TEMP 96.5; O2SAT 95
[2016-10-14 07:59] LABS: BICARBONATE 28.7 MEQ/L (21.0-32.0); POTASSIUM 4.1 MEQ/L (3.5-5.1)
[2016-10-14] MEDS ORDERED: amLODIPine BESYLATE 5 MG TAB PO SCH (09:00)
[2016-10-14] MEDS ORDERED: QUEtiapine FUMARATE 25 MG TAB PO SCH (09:00)
[2016-10-14] MEDS: SODIUM CHLORIDE 0.9% FLUSH 5 ML FLUSH FLUSH SCH (09:00)
--- NOTE | 2016-10-14 10:21 | HHI.PR ---
Subjective Remarks Very pleasant, appears in nad. No events overnight. No complaints. Cleared medically for DC. Will be admitted to psych unit Objective Vitals Vital Signs Date Time Temp Pulse Resp B/P Pulse Ox O2 Delivery O2 Flow Rate FiO2 10/14/16 07:41 96.5 67 18 118/71 95 10/14/16 01:34 98.2 86 18 118/75 97 10/13/16 21:02 98.1 84 18 120/67 96 10/13/16 15:57 98.7 69 17 115/67 99 10/13/16 15:12 65 10/13/16 11:37 98.2 67 18 139/83 100 I/O 10/13/16 10/13/16 10/13/16 10/14/16 10/14/16 10/14/16 07:00 15:00 23:00 07:00 15:00 23:00 Intake Total 100 ml Balance 100 ml Intake Oral 100 ml # Voids 1 Result Diagram: 10/14/16 0554 10/14/16 0554 Imaging Last Impressions Head CT 10/13/16 0149 Signed Impressions: Service Date/Time: Thursday, October 13, 2016 02:53 - CONCLUSION: No acute intracranial findings. Manuelito Greene MD Cervical Spine CT 10/13/16 0000 Signed Impressions: Service Date/Time: Thursday, October 13, 2016 02:53 - CONCLUSION: No evidence of fracture. Multilevel degenerative findings. Manuelito Greene MD Objective Remarks GENERAL: This is a pleasantly confuse 75 yo female, in bed, well-nourished, well -developed patient, in no apparent distress. SKIN: No rashes, ecchymoses or lesions. Cool and dry. HEAD: Atraumatic. Normocephalic. No temporal or scalp tenderness. EYES: Pupils equal round and reactive. Extraocular motions intact. No scleral icterus. No injection or drainage. ENT: Nose without bleeding, purulent drainage or septal hematoma. Throat without erythema, tonsillar hypertrophy or exudate. Uvula midline. Airway patent. NECK: Trachea midline. No JVD or lymphadenopathy. Supple, nontender, no meningeal signs. CARDIOVASCULAR: Regular rate and rhythm without murmurs, gallops, or rubs. RESPIRATORY: Clear to auscultation. Breath sounds equal bilaterally. No wheezes , rales, or rhonchi. GASTROINTESTINAL: Prior old surgical scars on abdomen. Abdomen soft, non-tender , nondistended. No hepato-splenomegaly, or palpable masses. No guarding. MUSCULOSKELETAL: Extremities without clubbing, cyanosis, or edema. No joint tenderness, effusion, or edema noted. No calf tenderness. Negative Homans sign bilaterally. NEUROLOGICAL: Cooperative, poor judgement. Alert and oriented by name and knows she is in the hospital. Follows all commands. Cranial nerves II through XII intact. Motor and sensory grossly within normal limits. Five out of 5 muscle strength in all muscle groups. Normal speech. A/P Assessment and Plan This is a 75-year-old female who has a history of dementia got lost from her house and was found in the lip. When EMS arrived she was poorly responsive, mumbling and making eye contact but not making any sense. In the ER her mental status dramatically improved and she was able to talk but is still quite confused which I suspect is her baseline. She is placed on a monitor and an IV was established. Labs were obtained which were all reassuring. CT of the head was negative for intracranial hemorrhage. I spoke to the patient's who is elderly and doesn't feel like he can take care of her anymore. Patient will be admitted for case management intervention. Worsening dementia Patient with Alzheimer's Disease, suicidal ideations and one prior attempt in [address] head is normal VS normal .Labs are normal UA normal Sitter at bedside Consult psychiatry Restart home meds. Case management consulted for DC plan DVT ppx with SCDs/TEDs Patient is cleared medically to DC to inpatient psych Discussed Condition With Patient, nurse. Discharge plan: Patient is cleared medically for DC Seen by psych plans to DC to inpatient psych DC to inpatient psych in stable condition To follow up as OP with PCP and consultants Meds per med reconciliations Diet:Healthy heart diet Activity ad keenan as tolerated Sho Salvador MD Oct 14, 2016 10:21
== END 2016-10-14 11:11 ==
LOC: NEPC 01:38 → NEDA 04:12 → NEPGCP 09:09
PROVIDERS: ADMIT Hospitalist; ATTEND Hospitalist
DX: R41.82 Altered mental status, unspecified (principal); F02.81 Dementia in other diseases classified elsewhere, unspecified severity, with behavioral disturbance; E78.00 Pure hypercholesterolemia, unspecified; K75.9 Inflammatory liver disease, unspecified; I10 Essential (primary) hypertension; Z79.899 Other long term (current) drug therapy; Z79.01 Long term (current) use of anticoagulants; R45.851 Suicidal ideations; Z91.83 Wandering in diseases classified elsewhere
CPT/HCPCS: 70450; 72125; 80048; 80053; 80307; 81001; 82550; 84443; 84484; 85025; 85610; 85730; 93005; 97163; 99285; G0378; G8987; G8988; J1630

== ENCOUNTER 2016-10-14 11:27 | Inpatient (IN) | payer MEDICARE, OTHER ==
[~2016-10-14] VITALS: Ht 160 cm; Wt 58.5 kg
[2016-10-14 11:35] VITALS: BP 139/82; PULSE 69; RESP 18; TEMP 97.4; O2SAT 99
[2016-10-14] MEDS ORDERED: MAGNESIUM HYDROXIDE SUSP 30 ML CUP PO PRN (12:00)
[2016-10-14] MEDS ORDERED: ALUMINUM/MAGNESIUM/SIMETH 30 ML CUP PO PRN (12:00)
[2016-10-14] MEDS ORDERED: LORazepam 2 MG/ML VIAL - age > 65 yrs IM PRN (12:00)
[2016-10-14 18:00] VITALS: BP 157/91; PULSE 83; RESP 18; TEMP 98; O2SAT 99
[2016-10-14] MEDS: LORazepam 0.5 MG TAB age > 65 yrs PO PRN (21:00)
[2016-10-14] MEDS: QUEtiapine FUMARATE 25 MG TAB PO SCH (21:00)
[2016-10-14] MEDS: ACETAMINOPHEN 325 MG TAB PO PRN (22:26)
[2016-10-15 05:46] VITALS: BP 119/72; PULSE 70; RESP 18; TEMP 98.3; O2SAT 99
[2016-10-15 08:19] LABS: ANION GAP 7 MEQ/L (5-15); BICARBONATE 29.9 MEQ/L (21.0-32.0); BLOOD UREA NITROGEN 17 MG/DL (7-18); CHLORIDE 106 MEQ/L (98-107); GLOMERULAR FILTRATION RATE 84 ML/MIN (>89); POTASSIUM 4.2 MEQ/L (3.5-5.1); SODIUM (NA) 143 MEQ/L (136-145)
[2016-10-15 08:24] LABS: HDL CHOLESTEROL 65.7 MG/DL (40.0-60.0); LDL CHOLESTEROL 142 MG/DL (0-99)
[2016-10-15] MEDS: NICOTINE 21 MG/24 HR PATCH T-DERMAL SCH (09:00)
[2016-10-15] MEDS: QUEtiapine FUMARATE 25 MG TAB PO SCH ×2 (09:17→21:09)
[2016-10-15] MEDS ORDERED: MAGNESIUM HYDROXIDE SUSP 30 ML CUP PO PRN (14:00)
[2016-10-15] MEDS ORDERED: ALUMINUM/MAGNESIUM/SIMETH 30 ML CUP PO PRN (14:00)
[2016-10-15] MEDS ORDERED: ACETAMINOPHEN 325 MG TAB PO PRN (14:00)
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
--- NOTE | 2016-10-15 16:06 | PD.CONS ---
Provisional Diagnosis Admission Date Oct 14, 2016 at 11:27 Rye I. 1. 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 Deferred Rye V. GAF is 25 presently History of Present Illness Service Psychiatry Consult Requested By Dr. Page Reason for Consult Second opinion Primary Care Physician Andrez Marino, DO HPI From Dr. Page's H&P: Patient is 75-year-old white male born in [place] known to us from prior contact maliciously being to 09/28/16 through 10/02/16 under visit [id number]` comes here under Espinosa act by the [employer] dated 10/13/16 at 1:30 AM this Espinosa act reviewed Espinosa act essentially stating that per the family the subject suffers from Alzheimer's disease with increased violent episodes misplacing "stuff" around the house getting angry of family these episodes were getting increasingly worse in frequency and intensity of the day prior to the Espinosa act around 2200 hrs. was an episode led the patient throwing a phone and breaking it then left the house in a nightgown and cold damp weather she then got lost [place] patient was located by the is tracking dogs was found unconscious and the need for immediate medical care. Patient transported to [facility] was admitted on 10/13/16 to the medical side with . Patient seen in consultation by Dr. Castro at that time. Patient then medically cleared and transferred to the 2500 unit. At the present time patient sitting quitely in the day room, nurse Brenda present throughout session. Patient did not remember me from prior inpatient hospitalization, is vaguely aware that this the hospital for close confused as to the [facility] state date and situation. Patient reiterated a prior delusional ideation related to the infidelity of her . Appears this delusion also centered somewhat on her adult daughter. Patient did denies suicidality homicidality voices or visions. However documentation from the ED describes the significant paranoia vigilance and anger outbursts. At the present time patient meets criteria for inpatient psychiatric hospitalization under the Espinosa act I will do first opinion requests a second opinion I feel she does not have capacity to make decisions concerning her hospitalization or treatment thus I'll ask for healthcare surrogate and a guardian advocate. Will continue medication from prior hospitalization. Of hospitalist consult with us also with him to arrange a meeting with the patient' s family the next 1-2 days to discuss further treatment and possible placement alternatives On my examination today: Patient seen and examined. Chart reviewed. Case d/w RN. On my examination today, patient presents as calm but confused. She says of the circumstances of her presentation here, "I don't know. Maybe I was hiding something and they found me in the [place]. I was hiding because I wanted to run away from everything because I was so depressed." Patient reports that she remains depressed because, "I'm a dummy. Sometimes I don't know who I am or where I am at. Sometimes I'm just not happy because I'm all by myself." He denies any suicidal ideation. Denies any audiovisual hallucinations. Remainder of the psychiatric ROS is negative. Past psychiatric history: Patient is likely an unreliable historian but denies any history of prior psychiatric contact. In fact, the patient was admitted psychiatrically here within the last month or so, at which point I saw her in consultation for a second opinion as well. Family history: Patient denies Chemical dependency history: Patient denies Social history: Patient insists "I don't have nothing. I'm all alone." Otherwise cannot provide any social history. Review of Systems ROS Limitations: Poor Historian Other No physical complaints Past Family Social History Coded Allergies: Codeine (Verified Allergy, Mild, 12/26/08) Past Medical History See electronic medical record Active Scripts Warfarin (Coumadin)6 Mg Tab6 Mg PO DAILY@16 #30 TAB Ref 0 Prov:Butch Page MD 10/02/16 Quetiapine 25 Mg Tab25 Mg PO BID #60 TAB Ref 0 Prov:Butch Page MD 10/02/16 Nitrofurantoin Monohydrate Macrocrystals (Macrobid)100 Mg [id number] Mg PO BIDPC # 4 CAP Ref 0 Prov:Butch Page MD 10/02/16 Amlodipine (Norvasc)5 Mg Tab5 Mg PO DAILY #30 TAB Ref 0 Prov:Butch Page MD 10/02/16 Nitrofurantoin Monohydrate Macrocrystals (Macrobid)100 Mg [id number] Mg PO BID 5 Days Ref 0 Prov:Kira Travis MD 09/28/16 Current Medications Medications (Trade) Dose Ordered Sig/Joann Route Start Time Stop Time Status Last Admin (SEROquel) 25 mg BID PO 10/14/16 21:00 10/15/16 09:17 (Ativan) 0.5 mg Q12H PRN PO 10/14/16 12:00 10/14/16 21:00 (Ativan Inj) 0.5 mg Q12H PRN IM 10/14/16 12:00 (Tylenol) 650 mg Q4H PRN PO 10/14/16 12:00 10/14/16 22:26 (Milk Of Magnesia Liq) 30 ml DAILY PRN PO 10/14/16 12:00 (Mag-Al Plus Susp Liq) 30 ml Q6H PRN PO 10/14/16 12:00 (Habitrol 21 Mg Patch.24 Hr) 1 patch DAILY T-DERMAL 10/15/16 09:00 Miscellaneous Information 1 HS T-DERMAL 10/15/16 21:00 (Norvasc) 5 mg DAILY PO 10/16/16 09:00 Warfarin Sodium 6 mg 6 mg DAILY@16 PO 10/15/16 16:00 (Coumadin Consult Pharmacy) 0 ml @ 0 mls/hr UNSCH OTHER 10/15/16 15:30 Patient's Strengths (min. 2) In a monitored setting. Verbally fluent. Physical Exam Physical examination completed by ED provider. On my examination today, patient appears to be in no acute physical distress. No abnormal motor movements noted. Labs and vital signs reviewed: Vital Signs Vital Signs Date Time Temp Pulse Resp B/P Pulse Ox O2 Delivery O2 Flow Rate FiO2 10/15/16 05:46 98.3 70 18 119/72 99 Lab Results Item Value Date Time Sodium Level 143 MEQ/L 10/15/16 0714 Potassium Level 4.2 MEQ/L 10/15/16 0714 Chloride Level 106 MEQ/L 10/15/16 0714 Blood Urea Nitrogen 17 MG/DL 10/15/16 0714 Creatinine 0.68 MG/DL 10/15/16 07 Mental Status Examination Patient is casually dressed. She is fairly well groomed. She is awake and alert and oriented to person only. She does not know the location or date. No motoric abnormalities noted. Speech is within normal limits for rate, tone and volume. Language and fund of knowledge are reduced for age. Mood is depressed and affect is blunted. Thought process somewhat disorganized. No loosening of associations. Patient is convinced that she is alone although the chart indicates that she has living family. No other delusional material. Denies suicidal or homicidal ideation but I suspect the patient is unreliable to contract for safety.. Insight and judgment are presently poor. Assessment & Plan Problem List: (1) Alzheimer's dementia with behavioral disturbance ICD Code: G30.8 Assessment & Plan Given the circumstances of her presentation here and her presentation on my examination today, I concur with Dr. Page that the patient meets criteria for involuntary psychiatric hospitalization under the Espinosa act. I have completed the second opinion paperwork. Further care as per Dr. Page. Thank you very much for this consultation. Signing off. Request HC Surrog/Guard Advoc?: Yes Problem Qualifiers (1) Alzheimer's dementia with behavioral disturbance: Qualified Code: G30.8 - Alzheimer's disease of other onset with behavioral disturbance Addison Hilario MD Oct 15, 2016 16:06
[2016-10-15 16:20] LABS: HEMOGLOBIN A1b 1.4 %; HEMOGLOBIN Ao 86.4 %; HEMOGLOBIN LA1C 1.9 %; HEMOGLOBIN P3 3.5 %
[2016-10-15] MEDS: WARFARIN SOD 6 MG TAB PO SCH (16:39)
[2016-10-15 19:07] VITALS: BP 128/70; PULSE 67; RESP 16; TEMP 97.9; O2SAT 100
[2016-10-15] MEDS: REMOVE OLD NICOTINE PATCH T-DERMAL SCH (21:00)
[2016-10-15] MEDS ORDERED: QUEtiapine FUMARATE 25 MG TAB PO SCH (21:00)
[2016-10-16 06:00] VITALS: BP 123/86; PULSE 86; RESP 16; TEMP 97.3
[2016-10-16] MEDS: NICOTINE 21 MG/24 HR PATCH T-DERMAL SCH (09:00)
[2016-10-16] MEDS: amLODIPine BESYLATE 5 MG TAB PO SCH (09:43)
[2016-10-16] MEDS: QUEtiapine FUMARATE 25 MG TAB PO SCH ×2 (09:43→21:31)
--- NOTE | 2016-10-16 10:48 | HHI.PYPN ---
Subjective Remarks Patient seen in her room with nurse Kiera, patient pleasant, somewhat intrusive somewhat flirtatious. Poor boundaries. Patient initially refused oral medication this a.m. however after encouragement by me she did take her oral medication. We'll continue to observe this for consistency with her behavior. Patient still remains confused disorganized with no significant insight into her disease Review of Systems Except as stated in HPI: all other systems reviewed are Neg Objective Alert: Yes [place]: Person Mood: Anxious, Calm Affect: Labile Memory Intact: Comment (poor) Hallucinations: Other (denies) Delusions: Yes Delusion Type: Grandiose (mild), Paranoid (mild) Suicidal: Ideation (denies) Homicidal: Ideation (denies) Insight/Judgement Very poor Vitals/IOs Vital Signs Date Time Temp Pulse Resp B/P Pulse Ox O2 Delivery O2 Flow Rate FiO2 10/16/16 06:00 97.3 86 16 123/86 10/15/16 19:07 100 Intake and Output 10/15/16 10/15/16 10/16/16 08:00 16:00 00:00 Intake Total 120 ml 600 ml 480 ml Output Total 1 ml Balance 119 ml 600 ml 480 ml Assessment & Plan Problem List: (1) Alzheimer's dementia with behavioral disturbance ICD Code: G30.8 Assessment & Plan Estimated LOS: days patient continues demented confused though no significant behavior problems except for some reluctance to be compliant with medication. For now continue treatment Justification for Cont. Inpt. At this time patient will decompensate the placed in a lower level of care Discharge Planning To be determined Request HC Surrog/Guard Advoc?: Yes Problem Qualifiers (1) Alzheimer's dementia with behavioral disturbance: Qualified Code: G30.8 - Alzheimer's disease of other onset with behavioral disturbance Butch Page MD Oct 16, 2016 10:48
[2016-10-16 11:13] LABS: INTERNATIONAL NORMALIZED RATIO 1.3 RATIO
[2016-10-16] MEDS ORDERED: WARFARIN SOD 2 MG TAB PO SCH (16:00)
[2016-10-16] MEDS: WARFARIN SOD 6 MG TAB PO SCH (16:10)
[2016-10-16 19:02] VITALS: BP 125/75; PULSE 71; RESP 18; TEMP 97.3; O2SAT 98
[2016-10-16] MEDS: REMOVE OLD NICOTINE PATCH T-DERMAL SCH (21:00)
[2016-10-16] MEDS: ATORVASTATIN 20 MG TAB PO SCH (21:30)
[2016-10-17 05:20] VITALS: BP 113/72; PULSE 84; RESP 18; TEMP 99; O2SAT 98
[2016-10-17 07:55] LABS: INTERNATIONAL NORMALIZED RATIO 1.5 RATIO; PROTHROMBIN TIME - PATIENT 16.8 SEC (9.8-11.6)
[2016-10-17] MEDS: QUEtiapine FUMARATE 25 MG TAB PO SCH ×2 (08:17→21:05)
[2016-10-17] MEDS: amLODIPine BESYLATE 5 MG TAB PO SCH (08:17)
[2016-10-17] MEDS: NICOTINE 21 MG/24 HR PATCH T-DERMAL SCH (09:00)
--- NOTE | 2016-10-17 10:27 | HHI.PYPN ---
Subjective Remarks Patient seen in her room with nurse Jean Marie, chart reviewed. Patient calm pleasant with me today continues at times intrusive with poor boundaries. Compliant medications. Continues with very little insight into her issues Review of Systems Except as stated in HPI: all other systems reviewed are Neg Objective Alert: Yes [place]: Person Mood: Anxious, Calm Affect: Labile Memory Intact: Comment (poor) Hallucinations: Other (denies) Delusions: Yes Delusion Type: Grandiose (mild), Paranoid (mild) Suicidal: Ideation (denies) Homicidal: Ideation (denies) Insight/Judgement Very poor Labs Test 10/16/16 10/17/16 10:56 06:55 Prothrombin Time 14.0 SEC 16.8 SEC Prothromb Time International 1.3 RATIO 1.5 RATIO Ratio Vitals/IOs Vital Signs Date Time Temp Pulse Resp B/P Pulse Ox O2 Delivery O2 Flow Rate FiO2 10/17/16 05:20 99.0 84 18 113/72 98 Intake and Output 10/16/16 10/16/16 10/17/16 08:00 16:00 00:00 Intake Total 840 ml Balance 840 ml Assessment & Plan Problem List: (1) Alzheimer's dementia with behavioral disturbance ICD Code: G30.8 Assessment & Plan Estimated LOS: days patient continues markedly confused disoriented, little insight, compliant medications at this time Justification for Cont. Inpt. At this time patient will decompensate if placed in a lower level of care Discharge Planning To be determined Request HC Surrog/Guard Advoc?: Yes Problem Qualifiers (1) Alzheimer's dementia with behavioral disturbance: Qualified Code: G30.8 - Alzheimer's disease of other onset with behavioral disturbance Butch Page MD Oct 17, 2016 10:27
--- NOTE | 2016-10-17 10:36 | HHI.PR ---
Subjective Remarks Follow-up visit dementia, Alzheimer's disease, HTN, HLD. Patient seen today. Reports she is doing well. Discuss lab results and statin medication. Patient states "do everything to make me feel better, I am okay with starting medication." Denies pain and discomfort. Denies SOB/ dyspnea. Denies ches tpain, palpitations, headaches, dizziness. Denies fevers, chills, n/v/d. Denies muscle weakness, cramping. Objective Vitals Vital Signs Date Time Temp Pulse Resp B/P Pulse Ox O2 Delivery O2 Flow Rate FiO2 10/17/16 05:20 99.0 84 18 113/72 98 10/16/16 19:02 97.3 71 18 125/75 98 I/O 10/16/16 10/16/16 10/16/16 10/17/16 10/17/16 10/17/16 07:00 15:00 23:00 07:00 15:00 23:00 Intake Total 840 ml 0 ml Balance 840 ml 0 ml Intake Oral 840 ml 0 ml # Voids 1 1 0 # Bowel Movements 0 Result Diagram: 10/15/16 0714 Objective Remarks GENERAL: This is a well-nourished, well-developed patient, in no apparent distress. HEENT: Normocephalic. Pupils equal round and reactive. Nose without bleeding. Airway patent. NECK: Trachea midline. No JVD. Supple. CARDIOVASCULAR: Regular rate and rhythm without murmurs, gallops, or rubs. RESPIRATORY: Clear to auscultation. Breath sounds equal bilaterally. No wheezes , rales, or rhonchi. GASTROINTESTINAL: Abdomen soft, non-tender, nondistended. Bowel Sounds normoactive x4. MUSCULOSKELETAL: Extremities without clubbing, cyanosis, or edema. NEUROLOGICAL: Awake and alert. Oriented to place, self. WALTER. Normal speech. Medications and IVs Current Medications Medications (Trade) Dose Ordered Sig/Joann Route Start Time Stop Time Status Last Admin (SEROquel) 25 mg BID PO 10/14/16 21:00 10/17/16 08:17 (Ativan) 0.5 mg Q12H PRN PO 10/14/16 12:00 10/14/16 21:00 (Ativan Inj) 0.5 mg Q12H PRN IM 10/14/16 12:00 (Tylenol) 650 mg Q4H PRN PO 10/14/16 12:00 10/17/16 11:27 (Milk Of Magnesia Liq) 30 ml DAILY PRN PO 10/14/16 12:00 (Mag-Al Plus Susp Liq) 30 ml Q6H PRN PO 10/14/16 12:00 (Habitrol 21 Mg Patch.24 Hr) 1 patch DAILY T-DERMAL 10/15/16 09:00 Miscellaneous Information 1 HS T-DERMAL 10/15/16 21:00 10/15/16 21:00 (Norvasc) 5 mg DAILY PO 10/16/16 09:00 10/17/16 08:17 Warfarin Sodium 6 mg 6 mg DAILY@16 PO 10/15/16 16:00 10/16/16 16:10 (Coumadin Consult Pharmacy) 0 ml @ 0 mls/hr UNSCH OTHER 10/15/16 15:30 (Lipitor) 20 mg HS PO 10/16/16 21:00 10/16/16 21:30 A/P Problem List: (1) HLD (hyperlipidemia) ICD Code: E78.5 Status: Chronic (2) HTN (hypertension) ICD Code: I10 Status: Chronic (3) Dementia ICD Code: F03.90 Status: Acute (4) Altered mental status ICD Code: R41.82 Status: Acute (5) Alzheimer's dementia with behavioral disturbance ICD Code: G30.8 Status: Acute Assessment and Plan Patient is a 75-year-old white female with primary medical history of dementia, Alzheimer's disease, suicidal ideations with prior attempted 2009, HTN, HLD, DVTs who came to the hospital after being loss from her house and was found laying down in the [place]. As per report, she was not responsive to EMS. She was moving everything and making eye contact and making some sounds but wasn't talking and wasn't cooperating. It's unclear if she got her. She was just recently admitted for dementia with behavioral disturbances. She lives with her who is also elderly. She is now admitted to inpatient psychiatry unit for further evaluation. Consulted for medical management. Dementia with behavioral disturbance, suicidal ideation - managed by psychiatry team Hypertension - Continue Norvasc 5 mg daily - Continue to monitor blood pressure - Controlled HLD - lipid profile reviewed. ASCVD risk 16.9% - Recommendations include lifestyle changes, heart healthy diet and exercise. Discussed extensively. Patient agrees with plan. - Atorvastatin 20mg daily. DVT, Hx - on Coumadin - Monitor INR - 1.3 -1.5 - Goal INR 2 to 3, pharmacy helping with dosing. DVT prop Coumadin/ambulation Discussed with patient, nursing Full code Stable from Hospitalist standpoint. We will sign off. Reconsult as needed. Written by Raissa Mares, on behalf of Dr. Shaffer on 10/17/16 at . Attending Statement All or portions of this note were transcribed by aidan Mares. I, Dr. Lai West personally performed the history, physical exam, and medical decision making; and confirmed the accuracy of the information in the transcribed note. Authenticated by Dr. Lai West on 10/17/16 at 15:10. Problem Qualifiers (1) Alzheimer's dementia with behavioral disturbance: Qualified Code: G30.8 - Alzheimer's disease of other onset with behavioral disturbance Raissa Lennon Oct 17, 2016 10:36 Lai Daniels MD Oct 17, 2016 15:11
[2016-10-17] MEDS: ACETAMINOPHEN 325 MG TAB PO PRN (11:27)
[2016-10-17] MEDS: WARFARIN SOD 6 MG TAB PO SCH (16:10)
[2016-10-17 18:36] VITALS: BP 101/73; PULSE 88; RESP 17; TEMP 96.2; O2SAT 98
[2016-10-17] MEDS: REMOVE OLD NICOTINE PATCH T-DERMAL SCH (21:00)
[2016-10-17] MEDS: ATORVASTATIN 20 MG TAB PO SCH (21:05)
[2016-10-18 05:56] VITALS: BP 141/73; PULSE 94; RESP 16; TEMP 98.9; O2SAT 98
[2016-10-18 07:49] LABS: INTERNATIONAL NORMALIZED RATIO 1.9 RATIO; PROTHROMBIN TIME - PATIENT 21.4 SEC (9.8-11.6)
[2016-10-18] MEDS: NICOTINE 21 MG/24 HR PATCH T-DERMAL SCH (08:59)
[2016-10-18] MEDS: QUEtiapine FUMARATE 25 MG TAB PO SCH ×2 (08:59→20:37)
[2016-10-18] MEDS: amLODIPine BESYLATE 5 MG TAB PO SCH (08:59)
--- NOTE | 2016-10-18 14:22 | HHI.PYPN ---
Subjective Remarks Pt seen and discussed with staff. She has been cooperative and compliant with care. She has been less fixated on delusions. She states that she is "loving this place. everyone is so nice. But I'm not a criminal. I have stolen nothing. " No SI/HI Objective Alert: Yes [place]: Person Mood: Calm Affect: Restricted Memory Intact: Comment (poor) Hallucinations: Other (denies) Delusions: Yes Delusion Type: Paranoid (mild) Suicidal: Ideation (denies) Homicidal: Ideation (denies) Insight/Judgement poor Labs Test 10/18/16 06:45 Prothrombin Time 21.4 SEC Prothromb Time International 1.9 RATIO Ratio Vitals/IOs Vital Signs Date Time Temp Pulse Resp B/P Pulse Ox O2 Delivery O2 Flow Rate FiO2 10/18/16 05:56 98.9 94 16 141/73 98 Intake and Output 10/17/16 10/17/16 10/18/16 08:00 16:00 00:00 Intake Total 0 ml 770 ml Balance 0 ml 770 ml Assessment & Plan Problem List: (1) Alzheimer's dementia with behavioral disturbance ICD Code: G30.8 Assessment & Plan Pt is improving. Continue current tx plan. Estimated LOS: days Justification for Cont. Inpt. limited Request HC Surrog/Guard Advoc?: Yes Problem Qualifiers (1) Alzheimer's dementia with behavioral disturbance: Qualified Code: G30.8 - Alzheimer's disease of other onset with behavioral disturbance Sindy Colón MD Oct 18, 2016 14:22
[2016-10-18] MEDS: WARFARIN SOD 6 MG TAB PO SCH (15:46)
[2016-10-18] MEDS: REMOVE OLD NICOTINE PATCH T-DERMAL SCH (20:37)
[2016-10-18] MEDS: ATORVASTATIN 20 MG TAB PO SCH (20:37)
[2016-10-19 06:00] VITALS: BP 121/83; PULSE 87; RESP 16; TEMP 99.1; O2SAT 97
[2016-10-19 07:44] LABS: PROTHROMBIN TIME - PATIENT 22.5 SEC (9.8-11.6)
[2016-10-19] MEDS: amLODIPine BESYLATE 5 MG TAB PO SCH (08:41)
[2016-10-19] MEDS: NICOTINE 21 MG/24 HR PATCH T-DERMAL SCH (08:41)
[2016-10-19] MEDS: QUEtiapine FUMARATE 25 MG TAB PO SCH ×2 (08:41→20:34)
--- NOTE | 2016-10-19 14:54 | HHI.PYPN ---
Subjective Remarks Pt seen and discussed with staff. She was crying and labile last night, but has been calm today. Engages in disorganized behaviors (washing dresses in sink) and is somewhat impulsive ([place] [facility] [place] No SI/HI. She had good visit with family yesterday. Objective Alert: Yes [place]: Person Mood: Calm Affect: Restricted Memory Intact: Comment (poor) Hallucinations: Other (denies) Delusions: No Delusion Type: Other (none) Suicidal: Ideation (denies) Homicidal: Ideation (denies) Insight/Judgement poor Labs Test 10/19/16 07:12 Prothrombin Time 22.5 SEC Prothromb Time International 2.0 RATIO Ratio Vitals/IOs Vital Signs Date Time Temp Pulse Resp B/P Pulse Ox O2 Delivery O2 Flow Rate FiO2 10/19/16 06:00 99.1 87 16 121/83 97 Intake and Output 10/18/16 10/18/16 10/19/16 08:00 16:00 00:00 Intake Total 240 ml 1440 ml Balance 240 ml 1440 ml Assessment & Plan Problem List: (1) Alzheimer's dementia with behavioral disturbance ICD Code: G30.8 Assessment & Plan Cotninue current tx plan. Estimated LOS: days Justification for Cont. Inpt. risk of decompensation Request HC Surrog/Guard Advoc?: Yes Problem Qualifiers (1) Alzheimer's dementia with behavioral disturbance: Qualified Code: G30.8 - Alzheimer's disease of other onset with behavioral disturbance Sindy Colón MD Oct 19, 2016 14:54
[2016-10-19] MEDS: WARFARIN SOD 6 MG TAB PO SCH (16:43)
[2016-10-19 18:19] VITALS: BP 127/76; PULSE 79; RESP 17; TEMP 98.5; O2SAT 98
[2016-10-19] MEDS: REMOVE OLD NICOTINE PATCH T-DERMAL SCH (20:34)
[2016-10-19] MEDS: ATORVASTATIN 20 MG TAB PO SCH (20:34)
[2016-10-20 05:46] VITALS: BP 100/70; PULSE 70; RESP 16; TEMP 97.7; O2SAT 97
[2016-10-20 07:43] LABS: INTERNATIONAL NORMALIZED RATIO 1.9 RATIO; PROTHROMBIN TIME - PATIENT 21.8 SEC (9.8-11.6)
[2016-10-20] MEDS: NICOTINE 21 MG/24 HR PATCH T-DERMAL SCH (09:00)
[2016-10-20] MEDS: amLODIPine BESYLATE 5 MG TAB PO SCH (09:00)
[2016-10-20] MEDS: QUEtiapine FUMARATE 25 MG TAB PO SCH ×2 (09:19→21:06)
--- NOTE | 2016-10-20 15:21 | HHI.PYPN ---
Subjective Remarks Patient discussed with treatment team and patient's son, chart reviewed, son states he feels his mother is doing somewhat better. Though is well aware of the fact that she cannot return home with her elderly frail . He is working with us to find appropriate placement once she is stabilized. Patient compliant medications Review of Systems Except as stated in HPI: all other systems reviewed are Neg Objective Alert: Yes [place]: Person Mood: Calm Affect: Restricted Memory Intact: Comment (poor) Hallucinations: Other (denies) Delusions: No Delusion Type: Other (none) Suicidal: Ideation (denies) Homicidal: Ideation (denies) Insight/Judgement Very poor Labs Test 10/20/16 06:40 Prothrombin Time 21.8 SEC Prothromb Time International 1.9 RATIO Ratio Vitals/IOs Vital Signs Date Time Temp Pulse Resp B/P Pulse Ox O2 Delivery O2 Flow Rate FiO2 10/20/16 05:46 97.7 70 16 100/70 97 Intake and Output 10/19/16 10/19/16 10/20/16 08:00 16:00 00:00 Intake Total 85 ml 600 ml Balance 85 ml 600 ml Assessment & Plan Problem List: (1) Alzheimer's dementia with behavioral disturbance ICD Code: G30.8 Assessment & Plan Estimated LOS: days patient continues demented, somewhat intrusive on the unit and in the day room though it appears attempts to be helpful. For now continue treatment Justification for Cont. Inpt. At this time patient will decompensate if placed in a lower level of care Discharge Planning To be determined Request HC Surrog/Guard Advoc?: Yes Problem Qualifiers (1) Alzheimer's dementia with behavioral disturbance: Qualified Code: G30.8 - Alzheimer's disease of other onset with behavioral disturbance Butch Page MD Oct 20, 2016 15:21
[2016-10-20] MEDS: WARFARIN SOD 6 MG TAB PO SCH (16:11)
[2016-10-20 18:48] VITALS: BP 113/71; PULSE 70; RESP 16; TEMP 97.2; O2SAT 99
[2016-10-20] MEDS: REMOVE OLD NICOTINE PATCH T-DERMAL SCH (21:00)
[2016-10-20] MEDS: ATORVASTATIN 20 MG TAB PO SCH (21:06)
[2016-10-21 05:53] VITALS: BP 122/70; PULSE 63; RESP 20; TEMP 98.4; O2SAT 98
[2016-10-21 07:16] LABS: INTERNATIONAL NORMALIZED RATIO 2.1 RATIO; PROTHROMBIN TIME - PATIENT 23.7 SEC (9.8-11.6)
[2016-10-21] MEDS: NICOTINE 21 MG/24 HR PATCH T-DERMAL SCH (09:00)
[2016-10-21] MEDS: QUEtiapine FUMARATE 25 MG TAB PO SCH ×2 (09:13→17:14)
[2016-10-21] MEDS: amLODIPine BESYLATE 5 MG TAB PO SCH (09:13)
--- NOTE | 2016-10-21 14:40 | HHI.PYPN ---
Subjective Remarks Patient seen in her room on [id number] with nurse Awilda, chart reviewed, patient showing some increased irritability confusion with me. Still with no insight into her issues. Somewhat angry and demanding with the nurses complaining of loss of some of her possessions that appear to be imaginary. Will increase Seroquel to 25 mg 3 times a day Review of Systems Except as stated in HPI: all other systems reviewed are Neg Objective Alert: Yes [place]: Person Mood: Agitated (mildly), Calm Affect: Labile (slightly), Restricted Memory Intact: Comment (poor) Hallucinations: Other (denies) Delusions: No Delusion Type: Other (none) Suicidal: Ideation (denies) Homicidal: Ideation (denies) Insight/Judgement Very poor Labs Test 10/21/16 06:24 Prothrombin Time 23.7 SEC Prothromb Time International 2.1 RATIO Ratio Vitals/IOs Vital Signs Date Time Temp Pulse Resp B/P Pulse Ox O2 Delivery O2 Flow Rate FiO2 10/21/16 05:53 98.4 63 20 122/70 98 Intake and Output 10/20/16 10/20/16 10/21/16 08:00 16:00 00:00 Intake Total 600 ml Balance 600 ml Assessment & Plan Problem List: (1) Alzheimer's dementia with behavioral disturbance ICD Code: G30.8 Assessment & Plan Estimated LOS: days patient continues confused and demented some increased irritability and lability. See medication adjustment above Justification for Cont. Inpt. At this time patient will decompensate placed in the lower level of care Discharge Planning To be determined Request HC Surrog/Guard Advoc?: Yes Problem Qualifiers (1) Alzheimer's dementia with behavioral disturbance: Qualified Code: G30.8 - Alzheimer's disease of other onset with behavioral disturbance Butch Page MD Oct 21, 2016 14:40
[2016-10-21] MEDS: WARFARIN SOD 6 MG TAB PO SCH (17:14)
[2016-10-21 17:20] VITALS: BP 115/81; PULSE 71; RESP 18; TEMP 98.3; O2SAT 97
[2016-10-21] MEDS: REMOVE OLD NICOTINE PATCH T-DERMAL SCH (21:00)
[2016-10-21] MEDS: ATORVASTATIN 20 MG TAB PO SCH (21:39)
[2016-10-22 06:15] VITALS: BP 118/70; PULSE 85; RESP 18; TEMP 97.8; O2SAT 94
[2016-10-22 07:55] LABS: INTERNATIONAL NORMALIZED RATIO 2.2 RATIO; PROTHROMBIN TIME - PATIENT 25.4 SEC (9.8-11.6)
[2016-10-22] MEDS: amLODIPine BESYLATE 5 MG TAB PO SCH (08:44)
[2016-10-22] MEDS: QUEtiapine FUMARATE 25 MG TAB PO SCH ×3 (08:46→18:06)
[2016-10-22] MEDS: NICOTINE 21 MG/24 HR PATCH T-DERMAL SCH (08:46)
--- NOTE | 2016-10-22 13:37 | HHI.PYPN ---
Subjective Remarks Patient discussed with treatment team including diagnosis medication management , discharge planning, and placement. Chart reviewed. Patient seen on unit floor staff. Patient continues diffusely confused though pleasant with little insight into her issues. She showing no behavioral problems on unit She is compliant with medications at this time. Review of Systems Except as stated in HPI: all other systems reviewed are Neg Objective Alert: Yes [place]: Person Mood: Calm Affect: Labile (slightly), Restricted Memory Intact: Comment (poor) Hallucinations: Other (denies) Delusions: No Delusion Type: Other (none) Suicidal: Ideation (denies) Homicidal: Ideation (denies) Insight/Judgement Poor Labs Test 10/22/16 06:53 Prothrombin Time 25.4 SEC Prothromb Time International 2.2 RATIO Ratio Vitals/IOs Vital Signs Date Time Temp Pulse Resp B/P Pulse Ox O2 Delivery O2 Flow Rate FiO2 10/22/16 06:15 97.8 85 18 118/70 94 Assessment & Plan Problem List: (1) Alzheimer's dementia with behavioral disturbance ICD Code: G30.8 Assessment & Plan Estimated LOS: days patient continues confused and disoriented, compliant medication. No significant behavioral problems. For now continue treatment Justification for Cont. Inpt. At this time patient would decompensate if placed in a lower level of care Discharge Planning To be determined Request HC Surrog/Guard Advoc?: Yes Problem Qualifiers (1) Alzheimer's dementia with behavioral disturbance: Qualified Code: G30.8 - Alzheimer's disease of other onset with behavioral disturbance Butch Page MD Oct 22, 2016 13:37
[2016-10-22] MEDS: WARFARIN SOD 6 MG TAB PO SCH (15:11)
[2016-10-22] MEDS: LORazepam 0.5 MG TAB age > 65 yrs PO PRN (15:11)
[2016-10-22 19:28] VITALS: BP 118/74; PULSE 92; RESP 18; TEMP 97.8; O2SAT 100
[2016-10-22] MEDS: ATORVASTATIN 20 MG TAB PO SCH (20:27)
[2016-10-22] MEDS: REMOVE OLD NICOTINE PATCH T-DERMAL SCH (20:28)
[2016-10-23 06:10] VITALS: BP 106/60; PULSE 70; RESP 16; TEMP 97.8; O2SAT 95
[2016-10-23 07:52] LABS: INTERNATIONAL NORMALIZED RATIO 2.3 RATIO; PROTHROMBIN TIME - PATIENT 26.1 SEC (9.8-11.6)
[2016-10-23] MEDS: NICOTINE 21 MG/24 HR PATCH T-DERMAL SCH (09:00)
[2016-10-23 09:42] VITALS: BP 112/67; PULSE 72; RESP 16; O2SAT 98
[2016-10-23] MEDS: amLODIPine BESYLATE 5 MG TAB PO SCH (09:48)
[2016-10-23] MEDS: QUEtiapine FUMARATE 25 MG TAB PO SCH ×3 (09:48→17:59)
--- NOTE | 2016-10-23 10:18 | HHI.PYPN ---
Subjective Remarks Patient seen in [place] [facility]. Patient's case continued by Beef Lugger Karen. It appears there is a placement available tomorrow at [facility] for this patient. Patient appears to be quite happy with this. For now continue treatment with probability of discharge tomorrow to [facility] Review of Systems Except as stated in HPI: all other systems reviewed are Neg Objective Alert: Yes [place]: Person Mood: Calm Affect: Labile (slightly), Restricted Memory Intact: Comment (poor) Hallucinations: Other (denies) Delusions: No Delusion Type: Other (none) Suicidal: Ideation (denies) Homicidal: Ideation (denies) Insight/Judgement Poor Labs Test 10/23/16 07:20 Prothrombin Time 26.1 SEC Prothromb Time International 2.3 RATIO Ratio Vitals/IOs Vital Signs Date Time Temp Pulse Resp B/P Pulse Ox O2 Delivery O2 Flow Rate FiO2 10/23/16 09:42 72 16 112/67 98 10/23/16 06:10 97.8 Intake and Output 10/22/16 10/22/16 10/22/16 07:59 15:59 23:59 Intake Total 840 ml 840 ml Balance 840 ml 840 ml Assessment & Plan Problem List: (1) Alzheimer's dementia with behavioral disturbance ICD Code: G30.8 Assessment & Plan Estimated LOS: days patient's case was continued in [place] per Beef Lugger Karen. It appears there is a placement available tomorrow for this patient. We'll consider discharge tomorrow to [facility] Justification for Cont. Inpt. Appears to be placement available tomorrow for this patient. Without this placement available for this patient is a high chance that she would decompensate in a less restrictive setting Discharge Planning To be determined Request HC Surrog/Guard Advoc?: Yes Problem Qualifiers (1) Alzheimer's dementia with behavioral disturbance: Qualified Code: G30.8 - Alzheimer's disease of other onset with behavioral disturbance Butch Page MD Oct 23, 2016 10:18
[2016-10-23] MEDS ORDERED: WARFARIN SOD 5 MG TAB PO SCH (16:00)
[2016-10-23 18:56] VITALS: BP 109/71; PULSE 70; RESP 16; TEMP 97.6; O2SAT 100
[2016-10-23] MEDS: REMOVE OLD NICOTINE PATCH T-DERMAL SCH (20:15)
[2016-10-23] MEDS: ATORVASTATIN 20 MG TAB PO SCH (20:16)
[2016-10-24 06:22] VITALS: BP 118/71; PULSE 72; RESP 16; TEMP 97.6; O2SAT 98
[2016-10-24] MEDS: NICOTINE 21 MG/24 HR PATCH T-DERMAL SCH (09:00)
[2016-10-24 09:02] LABS: INTERNATIONAL NORMALIZED RATIO 2.2 RATIO; PROTHROMBIN TIME - PATIENT 24.8 SEC (9.8-11.6)
[2016-10-24] MEDS: amLODIPine BESYLATE 5 MG TAB PO SCH (09:31)
[2016-10-24] MEDS: QUEtiapine FUMARATE 25 MG TAB PO SCH (09:31)
[2016-10-24] MEDS ORDERED: QUET1TAB7 PO (10:31)
[2016-10-24] MEDS ORDERED: LIPI20TA PO (10:31)
[2016-10-24] MEDS ORDERED: AMLO5 PO (10:31)
[2016-10-24] MEDS ORDERED: COUM5TAB PO (10:31)
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
== END 2016-10-24 11:30 | DRG 57 ==
LOC: H250 11:27 → H260 10-20 22:45
PROVIDERS: ADMIT Psychiatry & Neurology Psychiatry; ATTEND Psychiatry & Neurology Psychiatry
DX: G30.9 Alzheimer's disease, unspecified (principal); F02.81 Dementia in other diseases classified elsewhere, unspecified severity, with behavioral disturbance; M19.90 Unspecified osteoarthritis, unspecified site; I10 Essential (primary) hypertension; E78.5 Hyperlipidemia, unspecified; Z86.718 Personal history of other venous thrombosis and embolism; Z79.01 Long term (current) use of anticoagulants; Z96.653 Presence of artificial knee joint, bilateral
CPT/HCPCS: 80048; 80061; 83036; 85610

== ENCOUNTER 2018-01-15 21:21 | Inpatient (IN) | payer MEDICARE, OTHER ==
[~2018-01-15] VITALS: Ht 167.6 cm; Wt 66.3 kg
[~2018-01-15 21:21] MED LIST changes: +COUM5TAB PO; +LIPI20TA PO
[2018-01-15 21:26] VITALS: BP 174/79; PULSE 73; RESP 19; TEMP 98; O2SAT 98
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
[2018-01-15 22:06] LABS: AUTOMATED NEUTROPHIL # 5.8 TH/MM3 (1.8-7.7); BASOPHIL # 0.1 TH/MM3 (0-0.2); BASOPHIL % 0.9 % (0.0-2.0); EOSINOPHIL # 0.2 TH/MM3 (0-0.4); EOSINOPHIL % 2.3 % (0.0-4.0); HEMATOCRIT 40.9 % (35.0-46.0); HEMOGLOBIN 13.8 GM/DL (11.6-15.3); LYMPH % 17.5 % (9.0-44.0); LYMPHOCYTE # 1.4 TH/MM3 (1.0-4.8); MEAN CELL VOLUME 93.8 FL (80.0-100.0); MEAN CORPUSCULAR HEMOGLOBIN 31.7 PG (27.0-34.0); MEAN CORPUSCULAR HGB CONC 33.8 % (32.0-36.0); MEAN PLATELET VOLUME 9.1 FL (7.0-11.0); MONO % 8.4 % (0.0-8.0); MONOCYTE # 0.7 TH/MM3 (0-0.9); NEUT % 70.9 % (16.0-70.0); PLATELET COUNT 166 TH/MM3 (150-450); RED BLOOD COUNT 4.36 MIL/MM3 (4.00-5.30); RED CELL DISTRIBUTION WIDTH 13.7 % (11.6-17.2); WHITE BLOOD COUNT 8.1 TH/MM3 (4.0-11.0)
--- NOTE | 2018-01-15 22:24 | RADRPT ---
EXAM DATE: 01/15/2018 10:20 PM EDT AGE/SEX: 77 years / Female INDICATIONS: Altered mental status. CLINICAL DATA: This is the patient's initial encounter. Patient reports that signs and symptoms have been present for 1 day and indicates a pain score of Nonresponsive. MEDICAL/SURGICAL HISTORY: None. None. RADIATION DOSE: 56.35 CTDI (mGy) COMPARISON: [facility] [place], CT BRAIN W/O CONTRAST, 10/13/2016. . TECHNIQUE: CT of the head without contrast. Using automated exposure control and adjustment of the mA and/or kV according to patient size, radiation dose was kept as low as reasonably achievable to ob tain optimal diagnostic quality images. FINDINGS: Cerebrum: The ventricles are normal for age. No evidence of midline shift, mass lesion, hemorrhage or acute infarction. No extraaxial fluid collections are seen. Posterior Fossa: The cerebellum and brainstem are intact. The 4th ventricle is midline. The cerebe llopontine angle is unremarkable. Extracranial: The visualized portion of the orbits is intact. Skull: The calvaria is intact. No evidence of skull fracture. CONCLUSION: 1. No acute intracranial abnormalities. Cortical volume loss similar to October 13, 2016. Electronically signed by: Cornelio Gray MD 01/15/2018 10:22 PM EDT
[2018-01-15 22:32] LABS: ALBUMIN 3.5 GM/DL (3.4-5.0); AST (GOT) 20 U/L (15-37); BICARBONATE 21.4 MEQ/L (21.0-32.0); BLOOD UREA NITROGEN 25 MG/DL (7-18); CALCIUM 8.9 MG/DL (8.5-10.1); CHLORIDE 108 MEQ/L (98-107); CREATININE 0.66 MG/DL (0.50-1.00); GLOMERULAR FILTRATION RATE 87 ML/MIN (>89); GLUCOSE,RANDOM 107 MG/DL (74-106); SODIUM (NA) 142 MEQ/L (136-145)
[2018-01-15 22:33] LABS: ALT (GPT) 28 U/L (10-53)
[2018-01-15 22:43] LABS: ALKALINE PHOSPHATASE 88 U/L (45-117); TOTAL BILIRUBIN ADULT 0.3 MG/DL (0.2-1.0); TOTAL PROTEIN 6.7 GM/DL (6.4-8.2)
[2018-01-15 23:56] VITALS: BP 124/64; PULSE 76; RESP 18; TEMP 98.8; O2SAT 97
[2018-01-16] MEDS ORDERED: hydrOXYzine HCL 50 MG TAB PO PRN (04:15)
[2018-01-16] MEDS ORDERED: diphenhydrAMINE HCL 50 MG CAP - HS PRN PO (04:15)
[2018-01-16] MEDS ORDERED: MAGNESIUM HYDROXIDE SUSP 30 ML CUP PO PRN (04:15)
[2018-01-16] MEDS ORDERED: diphenhydrAMINE HCL 50 MG/ML VIAL - HS PRN IM (04:15)
[2018-01-16] MEDS ORDERED: ACETAMINOPHEN 325 MG TAB PO PRN (04:15)
[2018-01-16 05:14] VITALS: BP 126/69; PULSE 67; RESP 16; TEMP 97.4; O2SAT 96
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
--- NOTE | 2018-01-16 13:03 | RADRPT ---
EXAM DATE: 01/16/2018 12:55 PM EDT AGE/SEX: 77 years / Female INDICATIONS: Left sided breast pain. CLINICAL DATA: This is the patient's initial encounter. Patient reports that signs and symptoms have been present for 1 day and indicates a pain score of Nonresponsive. MEDICAL/SURGICAL HISTORY: None. None. COMPARISON: No prior exams available for comparison. FINDINGS: Frontal and lateral views of the chest demonstrate a normal-sized cardiac silhouette with calcificati on of the aorta. Descending thoracic aorta is tortuous. There is interstitial prominence bilaterally. No effusion, consolidation, or pneumothorax is identified. Bones and soft tissues demonstrate no acu te finding. There are degenerative changes of the thoracic spine. CONCLUSION: No acute cardiopulmonary abnormality is identified. Electronically signed by: Butch Ornelas MD 01/16/2018 1:01 PM EDT
[2018-01-16] MEDS: VENLAFAXINE HCL XR 37.5 MG CAP PO SCH (14:00)
--- NOTE | 2018-01-16 14:35 | HHI.HP ---
Provisional Diagnosis Admission Date Jan 16, 2018 at 04:09 Savannah I. Dementia with behavioral disturbances, history of depression Savannah II. Deferred Certification of Person's Competence To Provide Express and Informed Consent I have personally examined Tavia Fried , a person being served at [facility] on, Jan 16, 2018 13:56. Express and informed consent means consent voluntarily given in writing, by a competent person, after sufficient explanation and disclosure of the subject matter involved to enable the person to make a knowing and willful decision without any element of force, fraud, deceit, duress, or other form of constraint or coercion. This person is 18 years of age or older, is not now known to be incompetent to consent to treatment with a guardian advocate, and does not have a health care surrogate or proxy currently making medical treatment decisions. I have found this person to be one of the following: [] Competent to provide express and informed consent, as defined above, for voluntary admission to this facility and is competent to provide express and informed consent for treatment. He/she has the consistent capacity to make well reasoned, willful, and knowing decisions concerning his or her medical or mental health treatment. The person fully and consistently understands the purpose of the admission for examination/placement and is fully capable of personally exercising all rights assured under [place] [x] Incompetent to provide express and informed consent to voluntary admission, and this is incompetent to provide express and informed consent to treatment. The person must be transferred to involuntary status and a petition for a guardian advocate filed with the Circuit Court. [] Refusing to provide express and informed consent to voluntary admission but is competent to provide express and informed consent for treatment. The person must be discharged or transferred to involuntary status. Form shall be completed within 24 hours of a person's arrival at the receiving facility and filed in the clinical record of each person: 1. Admitted on a voluntary basis 2. Permitted to provide express and informed consent to his/her own treatment 3. Allowed to transfer from involuntary to voluntary status 4. Prior to permitting a person to consent to his or her own treatment after having been previously found incompetent to consent to treatment. History of Present Illness Capacity: Has Capacity HPI The patient is a pleasantly confused 77-year-old woman, , domiciled in [facility], with psychiatric history of dementia, Alzheimer's type , depression, previous psychiatric admissions due behavioral dysregulation, aggressive behavior, one prior suicidal attempt in 2009, she was hospitalized here in [place] in 2017 under the care of Dr. Page, medical history of recurring UTI with delirium as a consequent, who was admitted in psychiatry under Espinosa act due a suicidal attempt. According to the Espinosa act form she attempted to climb out of her window at her assisted living facility and run into traffic. She apparently has been combative at her assisted-living facility and reportedly requested that the officers kill her. Patient reports that she currently feels overwhelmed and she does not really want to talk about what has been going on and would prefer to talk about it tomorrow. EMR was reviewed. Case was discussed with nursing charge. I try to get collateral information from her Robbin Shin [phone], but he was not available. Her daughter Danyelle Ferrer [phone], explained that the patient has been hospitalized 2 times since she was hospitalized here 2017 due to agitation and aggressive behavior in the context of UTIs. The patient has not been taking her psychotropics. She would not take the Seroquel. After an episode of aggressive behavior in [place] in [place], where she was with her , about a month ago, she was hospitalized in a hospital in [place] and after being stabilized discharge to [facility]. Since she has been very she has been quite depressed, she wants to be with her , and she has been expressing repetitive suicidal statements. Yesterday, she actually jumped of the window and [place] the facility, [place] and with this police caught her she was asking them to kill her. Today of my psychiatric evaluation I find a patient that is very distressed, she says that she is not happy, but she is very upset, repeatedly says "I want to , I want to , let me " profusely crying. The patient refused to provide any additional information about her emotions and depression. Review of Systems Constitutional: DENIES: Diaphoretic episodes, Fatigue, Fever, Weight gain, Weight loss, Chills, Dizziness, Change in appetite, Night Sweats Endocrine: DENIES: Abnorml menstrual pattern, Heat/cold intolerance, Polydipsia , Polyuria, Polyphagia Eyes: DENIES: Blurred vision, Diplopia, Eye inflammation, Eye pain, Vision loss , Photosensitivity, Double Vision Ears, nose, mouth, throat: DENIES: Tinnitus, Hearing loss, Vertigo, Nasal discharge, Oral lesions, Throat pain, Hoarseness, Ear Pain, Running Nose, Epistaxis, Sinus Pain, Toothache, Odynophagia Respiratory: DENIES: Apneas, Cough, Snoring, Wheezing, Hemoptysis, Sputum production, Shortness of breath Cardiovascular: DENIES: Chest pain, Palpitations, Syncope, Dyspnea on Exertion , PND, Lower Extremity Edema, Orthopnea, Claudication Gastrointestinal: DENIES: Abdominal pain, Black stools, Bloody stools, Constipation, Diarrhea, Nausea, Vomiting, Difficulty Swallowing, Anorexia Genitourinary: DENIES: Abnormal vaginal bleeding, Dysmenorrhea, Dyspareunia, Sexual dysfunction, Urinary frequency, Urinary incontinence, Urgency, Hematuria , Dysuria, Nocturia, Vaginal discharge Musculoskeletal: DENIES: Joint pain, Muscle aches, Stiffness, Joint Swelling, Back pain, Neck pain Integumentary: DENIES: Abnormal pigmentation, Pruritus, Rash, Nail changes, Breast masses, Breast skin changes, Nipple discharge Hematologic/lymphatic: DENIES: Bruising, Lymphadenopathy Immunologic/allergic: DENIES: Eczema, Urticaria Neurologic: DENIES: Abnormal gait, Headache, Localized weakness, Paresthesias, Seizures, Speech Problems, Tremor, Poor Balance Psychiatric: COMPLAINS OF: Depression, Suicidal Ideation Substance Abuse History Drugs/Alcohol past 12 months No alcohol and substance abuse Past Family Social History Coded Allergies: codeine (Unverified Allergy, Mild, 03/17/17) Discontinued Scripts Warfarin (Coumadin) 5 Mg Tab, 5 MG PO DAILY@16 for health, #30 TAB 0 Refills Prov:Butch Page MD 10/24/16 Quetiapine (Quetiapine) 25 Mg Tab, 25 MG PO TID for health, #90 TAB 0 Refills Prov:Butch Page MD 10/24/16 Atorvastatin (Lipitor) 20 Mg Tab, 20 MG PO HS for health, #30 TAB 0 Refills Prov:Butch Page MD 10/24/16 Amlodipine (Norvasc) 5 Mg Tab, 5 MG PO DAILY for health, #30 TAB 0 Refills Prov:Butch Page MD 10/24/16 Warfarin (Coumadin) 6 Mg Tab, 6 MG PO DAILY@16 for health, #30 TAB 0 Refills Prov:Butch Page MD 10/02/16 Quetiapine (Quetiapine) 25 Mg Tab, 25 MG PO BID for health, #60 TAB 0 Refills Prov:Butch Page MD 10/02/16 Nitrofurantoin Monohydrate Macrocrystals (Macrobid) 100 Mg Cap, 100 MG PO BIDPC for health, #4 CAP 0 Refills Prov:Butch Page MD 10/02/16 Amlodipine (Norvasc) 5 Mg Tab, 5 MG PO DAILY for health, #30 TAB 0 Refills Prov:Butch Page MD 10/02/16 Nitrofurantoin Monohydrate Macrocrystals (Macrobid) 100 Mg Cap, 100 MG PO BID for Infection for 5 Days, CAP 0 Refills Prov:Kira Travis MD 09/28/16 Current Medications Medications (Trade) Dose Ordered Sig/Joann Route Start Time Stop Time Status Last Admin (Atarax) 50 mg Q6H PRN PO 01/16/18 04:15 (Benadryl) 50 mg HS PRN PO 01/16/18 04:15 (Benadryl Inj) 50 mg HS PRN IM 01/16/18 04:15 (Tylenol) 650 mg Q4H PRN PO 01/16/18 04:15 (Milk Of Magnesia Liq) 30 ml DAILY PRN PO 01/16/18 04:15 Family Psych History No family psychiatric history Social History Patient was born and raised in [facility], she was raised in an orphanage, she lives in [facility] , she has a son and a daughter, she just have an elemental education. Patient's Strengths (min. 2) Family support Physical Exam No tremors, no EPS, no psychomotor retardation or agitation, no gait disturbance Vital Signs Vital Signs Date Time Temp Pulse Resp B/P (MAP) Pulse Ox O2 Delivery O2 Flow Rate FiO2 01/16/18 05:14 97.4 67 16 126/69 (88) 96 01/15/18 23:56 Room Air I/O 01/16/18 01/16/18 01/17/18 08:00 16:00 00:00 Intake Total 240 ml 240 ml Balance 240 ml 240 ml Lab Results Test 01/15/18 21:37 White Blood Count 8.1 TH/MM3 Red Blood Count 4.36 MIL/MM3 Hemoglobin 13.8 GM/DL Hematocrit 40.9 % Mean Corpuscular Volume 93.8 FL Mean Corpuscular Hemoglobin 31.7 PG Mean Corpuscular Hemoglobin Concent 33.8 % Red Cell Distribution Width 13.7 % Platelet Count 166 TH/MM3 Mean Platelet Volume 9.1 FL Neutrophils (%) (Auto) 70.9 % Lymphocytes (%) (Auto) 17.5 % Monocytes (%) (Auto) 8.4 % Eosinophils (%) (Auto) 2.3 % Basophils (%) (Auto) 0.9 % Neutrophils # (Auto) 5.8 TH/MM3 Lymphocytes # (Auto) 1.4 TH/MM3 Monocytes # (Auto) 0.7 TH/MM3 Eosinophils # (Auto) 0.2 TH/MM3 Basophils # (Auto) 0.1 TH/MM3 CBC Comment DIFF FINAL Differential Comment Blood Urea Nitrogen 25 MG/DL Creatinine 0.66 MG/DL Random Glucose 107 MG/DL Total Protein 6.7 GM/DL Albumin 3.5 GM/DL Calcium Level 8.9 MG/DL Alkaline Phosphatase 88 U/L Aspartate Amino Transf (AST/SGOT) 20 U/L Alanine Aminotransferase (ALT/SGPT) 28 U/L Total Bilirubin 0.3 MG/DL Sodium Level 142 MEQ/L Potassium Level 3.8 MEQ/L Chloride Level 108 MEQ/L Carbon Dioxide Level 21.4 MEQ/L Anion Gap 13 MEQ/L Estimat Glomerular Filtration Rate 87 ML/MIN Thyroid Stimulating Hormone 3rd Gen 1.200 uIU/ML Ethyl Alcohol Level LESS THAN 3 MG/DL Mental Status Examination Appearance: Appropriate Consciousness: Alert Orientation: Person, Place Speech: Hesitant, Stuttering Language: Adequate Fund of Knowledge: Inadequate Attention and Concentration: Adequate Memory: Impaired Mood: Sad Affect: Sad Thought Process & Associations: Loose associations Hallucination Type: None Delusion Type: None Suicidal Ideation: Yes Suicidal Plan: Yes Suicidal Intention: Yes Homicidal Ideation: No Homicidal Plan: No Homicidal Intention: No Insight: Poor Judgment: Poor Assessment & Plan Problem List: (1) Alzheimer's dementia with behavioral disturbance ICD Codes: G30.8 - Other Alzheimer's disease; F02.81 - Dementia in other diseases classified elsewhere with behavioral disturbance Status: Acute Assessment & Plan: 77-year-old woman, , domiciled in [facility] in [facility], with psychiatric history of dementia, Alzheimer's type, depression, previous psychiatric admissions due behavioral dysregulation, aggressive behavior, one prior suicidal attempt in 2008, she was hospitalized here in [place] in 2017 under the care of Dr. Page, medical history of recurring UTI with delirium as a consequent, who was admitted in psychiatry under Espinosa act due a suicidal attempt. According to the Espinosa act form she attempted to climb out of her window at her assisted living facility and run into traffic. She apparently has been combative at her assisted-living facility and reportedly requested that the officers kill her. Patient reports that she currently feels overwhelmed and she does not really want to talk about what has been going on and would prefer to talk about it tomorrow. As per daughter, the patient has been increasingly aggressive and agitated at her [facility], very paranoid , disorganized, depressed, behavioral and emotional is regulated and expressing suicidal ideation persistently. Yesterday she jumped off a window and ran into traffic with suicidal intention. On evaluation patient is disoriented, confused , very emotionally disturbed, endorses suicidal ideation, no plan, and also depressive symptoms. Current neuropsychiatric symptoms seems to be secondary to dysregulated neurocognitive process, she represents a danger to herself and others at this moment and will benefit of psychiatric admission for stabilization. We'll start Seroquel 12.5 mg twice a day to help with mood, psychosis and agitation, Effexor 37.5 mg daily for depression. river transportation worker intervention for psychosocial assessment, and to help family in the process of finding a intermediate for the patient. Her daughter agree with this plan. Assessment & Plan Estimated LOS: Kevin Lea MD Jan 16, 2018 14:35
[2018-01-16 18:00] VITALS: BP 115/70; PULSE 79; RESP 16; TEMP 97.7; O2SAT 96
[2018-01-16] MEDS: ATORVASTATIN 20 MG TAB PO SCH (20:32)
[2018-01-17 06:44] VITALS: BP 122/61; PULSE 83; RESP 16; O2SAT 94
[2018-01-17] MEDS: QUEtiapine FUMARATE 25 MG TAB PO SCH ×2 (08:36→11:09)
[2018-01-17] MEDS: VENLAFAXINE HCL XR 37.5 MG CAP PO SCH (08:36)
[2018-01-17 09:01] LABS: BICARBONATE 26.9 MEQ/L (21.0-32.0); BLOOD UREA NITROGEN 17 MG/DL (7-18); CALCIUM 8.7 MG/DL (8.5-10.1); CHLORIDE 110 MEQ/L (98-107); CREATININE 0.75 MG/DL (0.50-1.00); GLOMERULAR FILTRATION RATE 75 ML/MIN (>89); GLUCOSE,RANDOM 76 MG/DL (74-106); SODIUM (NA) 144 MEQ/L (136-145)
[2018-01-17 09:03] LABS: CHOLESTEROL 227 MG/DL (120-200); TRIGLYCERIDES 96 MG/DL (42-150)
[2018-01-17 09:05] LABS: CHOLESTEROL/ HDL RATIO 3.54 RATIO; LDL CHOLESTEROL 144 MG/DL (0-99)
--- NOTE | 2018-01-17 12:19 | HHI.PR ---
Subjective Remarks Follow up for dementia, HTN, HLD. The patient is seen in the day room eating lunch. She claims that she is not supposed to be on Coumadin, although she is an extremely unreliable historian. Discussed with RN, who has been attempting to contact [facility] for medication list without success so far. She has no medical complaints, states "I am fine". Denies any chest pain, shortness of breath, or lower extremity pain/swelling. She denies any fever/chills, chest pain, cough, shortness of breath, or abdominal complaints. She is tolerating oral intake. Vital signs reviewed and stable. Objective Vitals Vital Signs Date Time Temp Pulse Resp B/P (MAP) Pulse Ox O2 Delivery O2 Flow Rate FiO2 01/17/18 06:44 83 16 122/61 (81) 94 01/16/18 18:00 97.7 79 16 115/70 (85) 96 I/O 01/16/18 01/16/18 01/16/18 01/17/18 01/17/18 01/17/18 07:00 15:00 23:00 07:00 15:00 23:00 Intake Total 480 ml 480 ml Balance 480 ml 480 ml Intake Oral 480 ml 480 ml # Voids 2 1 Result Diagram: 01/15/18 2137 01/17/18 0702 Imaging Last Impressions Chest X-Ray 01/16/18 0000 Signed Impressions: CONCLUSION: No acute cardiopulmonary abnormality is identified. Head CT 01/15/18 0000 Signed Impressions: CONCLUSION: 1. No acute intracranial abnormalities. Cortical volume loss similar to October 13, 2016. Objective Remarks GENERAL: Well-nourished, well-developed elderly female patient in [facility]. SKIN: Warm and dry. No rash. HEENT: Normocephalic. Atraumatic. Pupils equal and round. Mucous membranes pink and moist. CARDIOVASCULAR: Regular rate and rhythm. No murmur appreciated. RESPIRATORY: No accessory muscle use. Clear to auscultation. Breath sounds equal bilaterally. GASTROINTESTINAL: Abdomen soft, non-tender, nondistended. Normoactive bowel sounds x4. MUSCULOSKELETAL: No obvious deformities. Extremities without clubbing, cyanosis , or edema. Bilateral calves nontender to palpation. NEUROLOGICAL: Awake and alert. No obvious cranial nerve deficits. Motor grossly within normal limits. Moving all extremities spontaneously. Normal speech. Medications and IVs Current Medications Medications (Trade) Dose Ordered Sig/Joann Route Start Time Stop Time Status Last Admin (Atarax) 50 mg Q6H PRN PO 01/16/18 04:15 (Benadryl) 50 mg HS PRN PO 01/16/18 04:15 (Benadryl Inj) 50 mg HS PRN IM 01/16/18 04:15 (Tylenol) 650 mg Q4H PRN PO 01/16/18 04:15 (Milk Of Magnesia Liq) 30 ml DAILY PRN PO 01/16/18 04:15 (Effexor Xr) 37.5 mg DAILY PO 01/16/18 14:00 01/17/18 08:36 (SEROquel) 12.5 mg BID@09,12 PO 01/17/18 09:00 01/17/18 08:36 (Lipitor) 20 mg HS PO 01/16/18 21:00 01/16/18 20:32 Pharmacy Profile Note 0 ml @ 0 mls/hr UNSCH OTHER 01/16/18 14:15 (Coumadin) 5 mg DAILY@1600 PO 01/17/18 16:00 A/P Assessment and Plan 77-year-old female with past medical history significant for Alzheimer's dementia, arthritis, hyperlipidemia, hypertension, and DVT anticoagulated on Coumadin. Who is brought to the emergency department under Espinosa act after patient apparently climbed out of a window from the assisted living facility where she lives at and ran into traffic. Officers made contact with patient and patient made statements to officers asking them to kill her. Suicidal Ideations with Alzheimer's dementia -Continue management per psychiatry -CBC, CMP stable, CT of the head with no acute intracranial abnormality -UA yet to be collected Hypertension/Hyperlipidemia -BP has been fairly well controlled not on medications -Continue to monitor BP and if needed, resume low-dose Norvasc -Continue statin Left chest/breast pain -Patient does have a history of breast reduction -Chest x-ray reviewed and unremarkable -As needed Tylenol -Outpatient f/up -No complaints of pain today History of DVT? -INR 1.0 and patient claiming not on Coumadin or any other anticoagulation -Discussed with RN to obtain med rec from [facility] prior to resuming -No evidence of DVT on exam DVT prophylaxis-patient is ambulatory Sofya Krishnamurthy PA-C Jan 17, 2018 12:19 pm
--- NOTE | 2018-01-17 12:41 | HHI.PYPN ---
Subjective Remarks This is a request for second opinion. Admission note was reviewed and I agree with the history. Patient was seen and case was discussed with nursing. Patient says she was set up with the staff at her [facility] and jumped out the window as a form of escape. She denies he was suicidal ideation. However, she is alert and oriented 1 with poor insight into her history. She is pleasant and cooperative here. Made friends with the other patients. Short-term memory is impaired Mental Status Examination Appearance: Appropriate Consciousness: Alert Orientation: Person Speech: Hesitant, Stuttering Language: Adequate Fund of Knowledge: Inadequate Attention and Concentration: Adequate Memory: Impaired Mood: Sad Affect: Sad Thought Process & Associations: Loose associations Hallucination Type: None Delusion Type: None Suicidal Ideation: No Suicidal Plan: No Suicidal Intention: No Homicidal Ideation: No Homicidal Plan: No Homicidal Intention: No Insight: Poor Judgment: Poor Results Labs Test 01/16/18 14:42 01/17/18 07:02 Prothrombin Time 10.0 SEC 10.0 SEC Prothromb Time International Ratio 1.0 RATIO 1.0 RATIO Blood Urea Nitrogen 17 MG/DL Creatinine 0.75 MG/DL Random Glucose 76 MG/DL Calcium Level 8.7 MG/DL Sodium Level 144 MEQ/L Potassium Level 3.7 MEQ/L Chloride Level 110 MEQ/L Carbon Dioxide Level 26.9 MEQ/L Anion Gap 7 MEQ/L Estimat Glomerular Filtration Rate 75 ML/MIN Triglycerides Level 96 MG/DL Cholesterol Level 227 MG/DL LDL Cholesterol 144 MG/DL HDL Cholesterol 64.0 MG/DL Cholesterol/HDL Ratio 3.54 RATIO Vitals/IOs Vital Signs Date Time Temp Pulse Resp B/P (MAP) Pulse Ox O2 Delivery O2 Flow Rate FiO2 01/17/18 06:44 83 16 122/61 (81) 94 01/16/18 18:00 97.7 01/15/18 23:56 Room Air Assessment & Plan Problem List: (1) Alzheimer's dementia with behavioral disturbance ICD Codes: G30.8 - Other Alzheimer's disease; F02.81 - Dementia in other diseases classified elsewhere with behavioral disturbance Status: Acute Assessment & Plan I agree with the first opinion to continue petition. Criteria include suicide attempt Justification for Cont. Inpt. Continue current treatment plan Arjun Madrid DO Jan 17, 2018 12:41
[2018-01-17 13:44] LABS: HEMOGLOBIN A1C 5.2 % (4.3-6.0)
[2018-01-17] MEDS ORDERED: WARFARIN SOD 5 MG TAB PO SCH (16:00)
[2018-01-17 17:01] VITALS: BP 144/69; PULSE 64; RESP 16; TEMP 97.4; O2SAT 97
[2018-01-17] MEDS: ATORVASTATIN 20 MG TAB PO SCH (20:32)
[2018-01-18 06:04] VITALS: BP 119/60; PULSE 73; RESP 17; TEMP 98.4; O2SAT 96
[2018-01-18] MEDS: QUEtiapine FUMARATE 25 MG TAB PO SCH ×2 (09:00→12:00)
[2018-01-18] MEDS: VENLAFAXINE HCL XR 37.5 MG CAP PO SCH (09:00)
--- NOTE | 2018-01-18 11:22 | HHI.PR ---
Subjective Remarks Follow up for dementia, HTN, HLD. The patient is seen in the dayroom. She has no medical complaints. Says she feels just fine. Vital signs reviewed and stable. The patient still adamantly says she is not on Coumadin. Again discussed with RN to verify this with [facility] or pharmacy. Objective Vitals Vital Signs Date Time Temp Pulse Resp B/P (MAP) Pulse Ox O2 Delivery O2 Flow Rate FiO2 01/18/18 06:04 98.4 73 17 119/60 (79) 96 01/17/18 17:01 97.4 64 16 144/69 (94) 97 I/O 01/17/18 01/17/18 01/17/18 01/18/18 01/18/18 01/18/18 06:59 14:59 22:59 06:59 14:59 22:59 Intake Total 960 ml 240 ml 240 ml Balance 960 ml 240 ml 240 ml Intake Oral 960 ml 240 ml 240 ml # Voids 1 2 1 # Bowel Movements 0 Result Diagram: 01/15/187 01/17/18 0702 Imaging Last Impressions Chest X-Ray 01/16/18 0000 Signed Impressions: CONCLUSION: No acute cardiopulmonary abnormality is identified. Head CT 01/15/18 0000 Signed Impressions: CONCLUSION: 1. No acute intracranial abnormalities. Cortical volume loss similar to October 13, 2016. Objective Remarks GENERAL: Well-nourished, well-developed pleasantly confused elderly female patient in [facility]. SKIN: Warm and dry. No rash. HEENT: Normocephalic. Atraumatic. Pupils equal and round. Mucous membranes pink and moist. CARDIOVASCULAR: Regular rate and rhythm. No murmur appreciated. RESPIRATORY: No accessory muscle use. Clear to auscultation. Breath sounds equal bilaterally. GASTROINTESTINAL: Abdomen soft, non-tender, nondistended. Normoactive bowel sounds x4. MUSCULOSKELETAL: No obvious deformities. Extremities without clubbing, cyanosis , or edema. Bilateral calves nontender to palpation. NEUROLOGICAL: Awake and alert. No obvious cranial nerve deficits. Motor grossly within normal limits. Moving all extremities spontaneously. Normal speech. Medications and IVs Current Medications Medications (Trade) Dose Ordered Sig/Joann Route Start Time Stop Time Status Last Admin (Atarax) 50 mg Q6H PRN PO 01/16/18 04:15 (Benadryl) 50 mg HS PRN PO 01/16/18 04:15 (Benadryl Inj) 50 mg HS PRN IM 01/16/18 04:15 (Tylenol) 650 mg Q4H PRN PO 01/16/18 04:15 (Milk Of Magnesia Liq) 30 ml DAILY PRN PO 01/16/18 04:15 (Effexor Xr) 37.5 mg DAILY PO 01/16/18 14:00 01/17/18 08:36 (SEROquel) 12.5 mg BID@09,12 PO 01/17/18 09:00 01/17/18 08:36 (Lipitor) 20 mg HS PO 01/16/18 21:00 01/17/18 20:32 Pharmacy Profile Note 0 ml @ 0 mls/hr UNSCH OTHER 01/16/18 14:15 (Coumadin) 5 mg DAILY@1600 PO 01/17/18 16:00 Future Hold A/P Assessment and Plan 77-year-old female with past medical history significant for Alzheimer's dementia, arthritis, hyperlipidemia, hypertension, and DVT anticoagulated on Coumadin. Who is brought to the emergency department under [place]spinosa act after patient apparently climbed out of a window from the assisted living facility where she lives at and ran into traffic. Officers made contact with patient and patient made statements to officers asking them to kill her. Suicidal Ideations with Alzheimer's dementia -Continue management per psychiatry -CBC, CMP stable, CT of the head with no acute intracranial abnormality -UA yet to be collected, although patient denies any urinary complaints, afebrile, no leukocytosis Hypertension/Hyperlipidemia -BP has been fairly well controlled not on medications -Continue to monitor BP and resume low-dose Norvasc if needed -Continue statin Left chest/breast pain -Patient does have a history of breast reduction -Chest x-ray reviewed and unremarkable -As needed Tylenol -Outpatient f/up -No complaints of pain today History of DVT? -INR 1.0 and patient claiming not on Coumadin or any other anticoagulation -Discussed with RN to obtain med rec from [facility] prior to resuming -No evidence of DVT on exam DVT prophylaxis-patient is ambulatory Discharge Planning Awaiting med rec to be updated from [facility]/pharmacy. Otherwise, the patient is medically stable. Once med rec received, will likely restart meds and sign off. Sofya Krishnamurthy PA-C Jan 18, 2018 11:22 am
--- NOTE | 2018-01-18 14:52 | HHI.PYPN ---
Subjective Remarks The patient was seen today for psychiatric reevaluation. Case discussed with nurse in charge. On my psychiatric evaluation the patient is irritable, verbally hostile, refusing to talk to me. I tried to redirect the patient, but the patient becomes even more hostile, he stated that she does not want to talk with anybody, that we are keeping her "in this alf far form ". As per nurses, the patient has being periodically agitated, not to the point of becoming aggressive, but at times difficult to redirect. The patient is not taking her medications. He is eating okay. Mental Status Examination Appearance: Appropriate Consciousness: Alert Orientation: Person Speech: Hesitant, Stuttering Language: Adequate Fund of Knowledge: Inadequate Attention and Concentration: Adequate Memory: Impaired Mood: Sad Affect: Sad Thought Process & Associations: Loose associations Hallucination Type: None Delusion Type: None Suicidal Ideation: No Suicidal Plan: No Suicidal Intention: No Homicidal Ideation: No Homicidal Plan: No Homicidal Intention: No Insight: Poor Judgment: Poor Results Vitals/IOs Vital Signs Date Time Temp Pulse Resp B/P (MAP) Pulse Ox O2 Delivery O2 Flow Rate FiO2 01/18/18 06:04 98.4 73 17 119/60 (79) 96 01/15/18 23:56 Room Air Intake and Output 01/18/18 01/18/18 01/19/18 08:00 16:00 00:00 Intake Total 240 ml Balance 240 ml Assessment & Plan Problem List: (1) Alzheimer's dementia with behavioral disturbance ICD Codes: G30.8 - Other Alzheimer's disease; F02.81 - Dementia in other diseases classified elsewhere with behavioral disturbance Status: Acute Assessment & Plan: The patient is episodically agitated, verbally hostile, refusing medications. Assessment & Plan Estimated LOS: days Justification for Cont. Inpt. The patient is to continue psychiatric hospitalization for stabilization and safety. Kevin Dyer MD Jan 18, 2018 14:52
[2018-01-18 18:55] VITALS: BP 127/78; PULSE 75; RESP 16; TEMP 97.8; O2SAT 97
[2018-01-18] MEDS: ATORVASTATIN 20 MG TAB PO SCH (20:42)
[2018-01-19 06:44] VITALS: BP 111/55; PULSE 71; RESP 16; TEMP 98.2; O2SAT 95
[2018-01-19] MEDS: VENLAFAXINE HCL XR 37.5 MG CAP PO SCH (08:37)
[2018-01-19] MEDS: QUEtiapine FUMARATE 25 MG TAB PO SCH ×2 (08:37→12:00)
--- NOTE | 2018-01-19 16:15 | HHI.PYPN ---
Subjective Remarks I have seen and examined this patient today for psychiatric reevaluation. Patient has been discussed with nurse in charge. On psychiatric evaluation the patient is found interacting very friendly with peers in the unit, however, when I try to speak with the patient she becomes quite verbally hostile, especially when I tried to do an orientation test, she says that she is now here to talk with doctors, that she is here to be with her friends. She says that she is happy to be here. She has been having inappropriate behavior, no agitation, no aggressive behavior reported. Eating her food, engaging in group therapies, but refusing consistently to take medications. Review of Systems Except as stated in HPI: all other systems reviewed are Neg Mental Status Examination Appearance: Appropriate Consciousness: Alert Orientation: Person Speech: Hesitant, Stuttering Language: Adequate Fund of Knowledge: Inadequate Attention and Concentration: Adequate Memory: Impaired Mood: Sad Affect: Sad Thought Process & Associations: Loose associations Hallucination Type: None Delusion Type: None Suicidal Ideation: No Suicidal Plan: No Suicidal Intention: No Homicidal Ideation: No Homicidal Plan: No Homicidal Intention: No Insight: Fair Judgment: Impulsive Results Vitals/IOs Vital Signs Date Time Temp Pulse Resp B/P (MAP) Pulse Ox O2 Delivery O2 Flow Rate FiO2 01/19/18 06:44 98.2 71 16 111/55 (73) 95 01/15/18 23:56 Room Air Assessment & Plan Problem List: (1) Alzheimer's dementia with behavioral disturbance ICD Codes: G30.8 - Other Alzheimer's disease; F02.81 - Dementia in other diseases classified elsewhere with behavioral disturbance Status: Acute Assessment & Plan: Patient continues to be disoriented, irritable, verbally hostile in the interview, but no agitation, no aggressive behavior reported, she has been interacting appropriately with staff and peers. Not taking her medications. But sleeping and eating appropriately. Assessment & Plan Estimated LOS: days Justification for Cont. Inpt. Patient has an elevated risk to decompensate at a lower level of care. Kevin Dyer MD Jan 19, 2018 16:15
[2018-01-19 18:10] VITALS: BP 129/72; PULSE 85; RESP 18; TEMP 97.5; O2SAT 96
[2018-01-19] MEDS: ATORVASTATIN 20 MG TAB PO SCH ×2 (20:22→20:32)
[2018-01-20 06:03] VITALS: BP 108/53; PULSE 69; RESP 16; TEMP 98.1; O2SAT 96
[2018-01-20] MEDS: VENLAFAXINE HCL XR 37.5 MG CAP PO SCH (09:00)
[2018-01-20] MEDS: QUEtiapine FUMARATE 25 MG TAB PO SCH ×2 (09:00→12:00)
--- NOTE | 2018-01-20 15:22 | HHI.PYPN ---
Subjective Remarks The patient was seen today for psychiatric reevaluation. Case was discussed with nurse in charge and also with counselor Eli. I also had a brief conversation with patient's son. On my psychiatric evaluation today the patient is doing much better than yesterday, she is in a better mood, more cooperative, in a better spirit. She reports that she is happy to be here, she has made a lot of friends, but she is awaiting to be discharged to go back to the hospital. The patient has been taking her medications, she has been eating , compliant. However at times irritable, demanding, easily agitated, but redirectable. Review of Systems Except as stated in HPI: all other systems reviewed are Neg Mental Status Examination Appearance: Appropriate Consciousness: Alert Orientation: Person Speech: Hesitant, Stuttering Language: Adequate Fund of Knowledge: Inadequate Attention and Concentration: Adequate Memory: Impaired Mood: Sad Affect: Sad Thought Process & Associations: Loose associations Hallucination Type: None Delusion Type: None Suicidal Ideation: No Suicidal Plan: No Suicidal Intention: No Homicidal Ideation: No Homicidal Plan: No Homicidal Intention: No Insight: Fair Judgment: Impulsive Results Vitals/IOs Vital Signs Date Time Temp Pulse Resp B/P (MAP) Pulse Ox O2 Delivery O2 Flow Rate FiO2 01/20/18 06:03 98.1 69 16 108/53 (71) 96 Assessment & Plan Problem List: (1) Alzheimer's dementia with behavioral disturbance ICD Codes: G30.8 - Other Alzheimer's disease; F02.81 - Dementia in other diseases classified elsewhere with behavioral disturbance Status: Acute Assessment & Plan: The patient seems to be responding appropriately to psychotropic regimen. Continues to be at times agitated and irritable. Will increase Seroquel to 25 mg twice daily. Assessment & Plan Estimated LOS: days Justification for Cont. Inpt. Patient has an elevated risk to decompensate at a lower level of care. Kevin Dyer MD Jan 20, 2018 15:22
[2018-01-20 18:03] VITALS: BP 123/67; PULSE 79; RESP 16; TEMP 97.6; O2SAT 97
[2018-01-20] MEDS: ATORVASTATIN 20 MG TAB PO SCH (21:00)
[2018-01-21 06:41] VITALS: BP 112/65; PULSE 75; RESP 18; TEMP 98.3; O2SAT 96
[2018-01-21] MEDS: VENLAFAXINE HCL XR 37.5 MG CAP PO SCH (08:18)
[2018-01-21] MEDS: QUEtiapine FUMARATE 25 MG TAB PO SCH ×2 (08:18→12:20)
--- NOTE | 2018-01-21 14:55 | HHI.PYPN ---
Subjective Remarks The patient was seen today for psychiatric reevaluation, she was also seen in [address]. On psychiatric evaluation today the patient is in a good spirits, with a much brighter affect than yesterday, more engageable in conversation. the patient reports feeling much better, denies depressive symptoms, denies anxiety, denies robson and psychosis. Oriented using person, disoriented in time and place. She has been quite interactive in the unit, no agitation, no aggressive behavior reported. Compliant with her medications, no significant side effects. Mental Status Examination Appearance: Appropriate Consciousness: Alert Orientation: Person Speech: Hesitant, Stuttering Language: Adequate Fund of Knowledge: Inadequate Attention and Concentration: Adequate Memory: Impaired Mood: Sad Affect: Sad Thought Process & Associations: Loose associations Hallucination Type: None Delusion Type: None Suicidal Ideation: No Suicidal Plan: No Suicidal Intention: No Homicidal Ideation: No Homicidal Plan: No Homicidal Intention: No Insight: Fair Judgment: Impulsive Results Vitals/IOs Vital Signs Date Time Temp Pulse Resp B/P (MAP) Pulse Ox O2 Delivery O2 Flow Rate FiO2 01/21/18 06:41 98.3 75 18 112/65 (81) 96 Intake and Output 01/21/18 01/21/18 01/22/18 08:00 16:00 00:00 Intake Total 360 ml Balance 360 ml Assessment & Plan Problem List: (1) Alzheimer's dementia with behavioral disturbance ICD Codes: G30.8 - Other Alzheimer's disease; F02.81 - Dementia in other diseases classified elsewhere with behavioral disturbance Status: Acute Assessment & Plan: Continue current psychotropic regimen. Brief supportive psychotherapy provided. Assessment & Plan Estimated LOS: days Justification for Cont. Inpt. The patient has an elevated risk to decompensate at a lower level of care. Kevin Dyer MD Jan 21, 2018 14:55
[2018-01-21] MEDS: ATORVASTATIN 20 MG TAB PO SCH (20:33)
[2018-01-22 08:52] VITALS: BP 116/82; PULSE 66; RESP 18; TEMP 97.6; O2SAT 98
[2018-01-22 09:39] LABS: PROTHROMBIN TIME - PATIENT 9.8 SEC (9.8-11.6)
[2018-01-22] MEDS: QUEtiapine FUMARATE 25 MG TAB PO SCH ×2 (09:41→12:00)
[2018-01-22] MEDS: VENLAFAXINE HCL XR 37.5 MG CAP PO SCH (09:41)
--- NOTE | 2018-01-22 14:59 | HHI.PYPN ---
Subjective Remarks On psychiatric evaluation today the patient presents quite calm, cooperative, reports good mood. She is oriented in person, disoriented in time and place, but able to answer my questions. She has been eating appropriately, interacting with peers with no problems, no agitation, no aggressive behavior reported. The patient has been compliant with her medications, no significant side effects reported. Review of Systems Except as stated in HPI: all other systems reviewed are Neg Mental Status Examination Appearance: Appropriate Consciousness: Alert Orientation: Person Speech: Hesitant, Stuttering Language: Adequate Fund of Knowledge: Inadequate Attention and Concentration: Adequate Memory: Impaired Mood: Sad Affect: Sad Thought Process & Associations: Loose associations Hallucination Type: None Delusion Type: None Suicidal Ideation: No Suicidal Plan: No Suicidal Intention: No Homicidal Ideation: No Homicidal Plan: No Homicidal Intention: No Insight: Fair Judgment: Impulsive Results Labs Test 01/22/18 08:58 Prothrombin Time 9.8 SEC Prothromb Time International Ratio 1.0 RATIO Vitals/IOs Vital Signs Date Time Temp Pulse Resp B/P (MAP) Pulse Ox O2 Delivery O2 Flow Rate FiO2 01/22/18 08:52 97.6 66 18 116/82 (93) 98 Intake and Output 01/22/18 01/22/18 01/23/18 08:00 16:00 00:00 Intake Total 240 ml 120 ml Balance 240 ml 120 ml Assessment & Plan Problem List: (1) Alzheimer's dementia with behavioral disturbance ICD Codes: G30.8 - Other Alzheimer's disease; F02.81 - Dementia in other diseases classified elsewhere with behavioral disturbance Status: Acute Assessment & Plan: Continue current psychotropic regimen. Psychoeducation and motivation provided. Assessment & Plan Estimated LOS: days Justification for Cont. Inpt. Patient has an elevated risk to decompensate at a lower level of care. Kevin Dyer MD Jan 22, 2018 14:59
[2018-01-22 17:49] VITALS: BP 115/66; PULSE 68; RESP 16; TEMP 97.3; O2SAT 95
[2018-01-22] MEDS: ATORVASTATIN 20 MG TAB PO SCH (20:39)
[2018-01-23 05:54] VITALS: BP 140/62; PULSE 98; RESP 16; TEMP 98.3
--- NOTE | 2018-01-23 08:23 | HHI.PYPN ---
Subjective Remarks Chart reviewed and discussed with Kiera, RN. Patient is in the dayroom eating breakfast. States she slept well. Appetite good. No behavioral concerns. She states to this provider, " I like this place." She is medication compliant. Mental Status Examination Appearance: Appropriate Consciousness: Alert Orientation: Person Speech: Hesitant, Stuttering Language: Adequate Fund of Knowledge: Inadequate Attention and Concentration: Adequate Memory: Impaired Mood: Appropriate Affect: Appropriate Thought Process & Associations: Loose associations Thought Content: Other (answers questions with a simple response ) Hallucination Type: None Delusion Type: None Suicidal Ideation: No Suicidal Plan: No Suicidal Intention: No Homicidal Ideation: No Homicidal Plan: No Homicidal Intention: No Insight: Fair Judgment: Impulsive Results Labs Test 01/22/18 08:58 Prothrombin Time 9.8 SEC Prothromb Time International Ratio 1.0 RATIO Vitals/IOs Vital Signs Date Time Temp Pulse Resp B/P (MAP) Pulse Ox O2 Delivery O2 Flow Rate FiO2 01/23/18 05:54 98.3 98 16 140/62 (88) 01/22/18 17:49 95 Intake and Output 01/23/18 01/23/18 01/24/18 08:00 16:00 00:00 Intake Total 360 ml Balance 360 ml Assessment & Plan Problem List: (1) Alzheimer's dementia with behavioral disturbance ICD Codes: G30.8 - Other Alzheimer's disease; F02.81 - Dementia in other diseases classified elsewhere with behavioral disturbance Status: Acute Assessment & Plan Patient is euthymic. She is eating and sleeping well. No behavioral concerns. Medication compliant. Estimated LOS: days Justification for Cont. Inpt. Moving patient to a lower level of care may result in her decompensation. Johanny Denney Jan 23, 2018 08:23
[2018-01-23] MEDS: QUEtiapine FUMARATE 25 MG TAB PO SCH ×2 (09:55→13:07)
[2018-01-23] MEDS: VENLAFAXINE HCL XR 37.5 MG CAP PO SCH (09:55)
[2018-01-23 17:35] VITALS: BP 106/68; PULSE 79; RESP 16; TEMP 98; O2SAT 96
[2018-01-23] MEDS: ATORVASTATIN 20 MG TAB PO SCH (20:26)
[2018-01-24] MEDS: VENLAFAXINE HCL XR 37.5 MG CAP PO SCH (09:38)
[2018-01-24] MEDS: QUEtiapine FUMARATE 25 MG TAB PO SCH ×2 (09:38→12:00)
--- NOTE | 2018-01-24 15:22 | HHI.PYPN ---
Subjective Remarks Reviewed electronic medical records and discussed case with staff. Follow-up was conducted in the day room. Patient reports that she is not doing "too good ". She does state that she has been sleeping good and her appetite has been good. She is extremely confused as to the circumstances surrounding her admission. Mental Status Examination Appearance: Appropriate Consciousness: Alert Orientation: Person Speech: Hesitant, Stuttering Language: Adequate Fund of Knowledge: Inadequate Attention and Concentration: Adequate Memory: Impaired Mood: Appropriate Affect: Appropriate Thought Process & Associations: Loose associations Thought Content: Other (answers questions with a simple response ) Hallucination Type: None Delusion Type: None Suicidal Ideation: No Suicidal Plan: No Suicidal Intention: No Homicidal Ideation: No Homicidal Plan: No Homicidal Intention: No Insight: Fair Judgment: Impulsive Results Vitals/IOs Vital Signs Date Time Temp Pulse Resp B/P (MAP) Pulse Ox O2 Delivery O2 Flow Rate FiO2 01/23/18 17:35 98.0 79 16 106/68 (81) 96 Assessment & Plan Problem List: (1) Alzheimer's dementia with behavioral disturbance ICD Codes: G30.8 - Other Alzheimer's disease; F02.81 - Dementia in other diseases classified elsewhere with behavioral disturbance Status: Acute Assessment & Plan Estimated LOS: Continue with current treatment plan. Patient will be reassessed by her attending psychiatrist tomorrow. Days Justification for Cont. Inpt. Moving this patient to a less restrictive environment would likely result in decompensation. Dolly Marks Jan 24, 2018 15:22
[2018-01-24 17:44] VITALS: BP 118/67; PULSE 69; RESP 16; TEMP 97.4; O2SAT 96
[2018-01-24] MEDS: ATORVASTATIN 20 MG TAB PO SCH (20:08)
[2018-01-25 06:05] VITALS: BP 128/83; PULSE 75; RESP 16; TEMP 98.7; O2SAT 96
[2018-01-25] MEDS: QUEtiapine FUMARATE 25 MG TAB PO SCH ×2 (08:11→12:00)
[2018-01-25] MEDS: VENLAFAXINE HCL XR 37.5 MG CAP PO SCH (08:11)
--- NOTE | 2018-01-25 13:56 | HHI.PYPN ---
Subjective Remarks The patient was seen today for second reevaluation. Case was discussed with nurse in charge. On second reevaluation the patient is calm, cooperative, pleasant, continues to be disoriented, pleasantly confused, with periodic agitation in the unit, but usually verbally de-escalated easily. The patient has been compliant with her medications, no significant side effects reported. Eating her food. Good interaction with staff and peers in the unit. No aggressive behavior or behavioral dysregulation reported during the weekend. Mental Status Examination Appearance: Appropriate Consciousness: Alert Orientation: Person Speech: Hesitant, Stuttering Language: Adequate Fund of Knowledge: Inadequate Attention and Concentration: Adequate Memory: Impaired Mood: Appropriate Affect: Appropriate Thought Process & Associations: Loose associations Thought Content: Other (answers questions with a simple response ) Hallucination Type: None Delusion Type: None Suicidal Ideation: No Suicidal Plan: No Suicidal Intention: No Homicidal Ideation: No Homicidal Plan: No Homicidal Intention: No Insight: Fair Judgment: Impulsive Results Vitals/IOs Vital Signs Date Time Temp Pulse Resp B/P (MAP) Pulse Ox O2 Delivery O2 Flow Rate FiO2 01/25/18 06:05 98.7 75 16 128/83 (98) 96 Assessment & Plan Problem List: (1) Alzheimer's dementia with behavioral disturbance ICD Codes: G30.8 - Other Alzheimer's disease; F02.81 - Dementia in other diseases classified elsewhere with behavioral disturbance Status: Acute Assessment & Plan: Continue current psychotropic regimen. Brief supportive psychotherapy provided Assessment & Plan Estimated LOS: days Justification for Cont. Inpt. Patient has an elevated risk to decompensate at a lower level of care Kevin Dyer MD Jan 25, 2018 13:56
[2018-01-25 18:14] VITALS: BP 119/66; PULSE 72; RESP 24; TEMP 97.3; O2SAT 97
[2018-01-25] MEDS: ATORVASTATIN 20 MG TAB PO SCH (21:00)
[2018-01-26 06:04] VITALS: BP 118/60; PULSE 73; RESP 16; TEMP 98.3; O2SAT 95
[2018-01-26] MEDS: VENLAFAXINE HCL XR 37.5 MG CAP PO SCH (08:46)
[2018-01-26] MEDS: QUEtiapine FUMARATE 25 MG TAB PO SCH ×2 (08:46→12:00)
[2018-01-26] MEDS ORDERED: ATOR20TA15 PO (12:15)
[2018-01-26] MEDS ORDERED: COUM5TAB PO (12:15)
[2018-01-26] MEDS ORDERED: VENL1CAP38 PO (12:15)
[2018-01-26] MEDS ORDERED: SERO25TA PO (12:15)
--- NOTE | 2018-01-26 12:19 | HHI.DS ---
Psychiatry Discharge Summary Inpatient Psychiatric care?: Yes Advance Directive: No Reason Not Provided: Due to Patient Condition Mental Health AdvanceDirective: No Health Care Proxy: No Admission Admission Date Jan 16, 2018 at 04:09 Admission Diagnosis: (1) Alzheimer's dementia with behavioral disturbance ICD Code: G30.8 - Other Alzheimer's disease; F02.81 - Dementia in other diseases classified elsewhere with behavioral disturbance Brief History The patient is a pleasantly confused 77-year-old woman, , domiciled in [facility] in [facility], with psychiatric history of dementia, Alzheimer's type , depression, previous psychiatric admissions due behavioral dysregulation, aggressive behavior, one prior suicidal attempt in 2008, she was hospitalized here in [place] in 2017 under the care of Dr. Page, medical history of recurring UTI with delirium as a consequent, who was admitted in psychiatry under [facility] due a suicidal attempt. According to the [facility] form she attempted to climb out of her window at her assisted living facility and run into traffic. She apparently has been combative at her assisted-living facility and reportedly requested that the officers kill her. Patient reports that she currently feels overwhelmed and she does not really want to talk about what has been going on and would prefer to talk about it tomorrow. EMR was reviewed. Case was discussed with nursing charge. I try to get collateral information from her Robbin Shin [phone], but he was not available. Her daughter Danyelle Ferrer [phone], explained that the patient has been hospitalized 2 times since she was hospitalized here 2017 due to agitation and aggressive behavior in the context of UTIs. The patient has not been taking her psychotropics. She would not take the Seroquel. After an episode of aggressive behavior in [place] in [place], where she was with her , about a month ago, she was hospitalized in a hospital in [place] and after being stabilized discharge to [facility]. Since she has been very she has been quite depressed, she wants to be with her , and she has been expressing repetitive suicidal statements. Yesterday, she actually jumped of the window and ran away from the facility, [place] and with this police caught her she was asking them to kill her. Today of my psychiatric evaluation I find a patient that is very distressed, she says that she is not happy, but she is very upset, repeatedly says "I want to , I want to , let me " profusely crying. The patient refused to provide any additional information about her emotions and depression. Tobacco Use In Past 30 Days: No Tobacco Past 30 Days Alcohol Use: Never Hospital Course Patient's hospital course was uneventful, she showed cooperation compliance with medication from admission the cognitive deficits persist. There is still some little acceptance of her going to the [facility] versus home with her family. Over family appears to be aware of this. Patient will be going his [facility] which is a locked unit. Rx 1 month. Patient does deny suicidality homicidality voices or visions. Follow up services through that facility Results Blood Pressure 118 / 60 Vital Signs Date Time Temp Pulse Resp B/P (MAP) Pulse Ox O2 Delivery O2 Flow Rate FiO2 01/26/18 06:04 98.3 73 16 118/60 (79) 95 Laboratory Results Test 01/17/18 07:02 Cholesterol Level 227 MG/DL (120-200) HDL Cholesterol 64.0 MG/DL (40.0-60.0) Hemoglobin A1c 5.2 % (4.3-6.0) LDL Cholesterol 144 MG/DL (0-99) Triglycerides Level 96 MG/DL (42-150) Summary of Procedures None done Imaging Last Impressions Chest X-Ray 01/16/18 0000 Signed Impressions: CONCLUSION: No acute cardiopulmonary abnormality is identified. Head CT 01/15/18 0000 Signed Impressions: CONCLUSION: 1. No acute intracranial abnormalities. Cortical volume loss similar to October 13, 2016. Pending results at discharge: No Medications # of Antipsychotic meds at D/C: 1 Approp Antipsych med options 1 - Minimum of three failed multiple trials of monotherapy. 2 - Documented plan to taper to monotherapy due to previous use of multiple meds OR cross-taper in progress at D/C. 3 - Documentation of augmentation of Clozapine. 4 - Justification other than those listed in allowable values 1-3, document here : Discharge Discharge Date: Jan 26, 2018 Discharge Diagnosis: (1) Alzheimer's dementia with behavioral disturbance Diagnosis: Principal ICD Code: G30.8 - Other Alzheimer's disease; F02.81 - Dementia in other diseases classified elsewhere with behavioral disturbance Status: Acute Pt Condition on Discharge: Stable Discharge Disposition: [facility] Discharge Instructions Diet Instructions: As Tolerated, No Restrictions Activities you can perform: Regular-No Restrictions Scheduled Appointment: [facility] Discharge Time > 30 minutes Mental Status Examination Appearance: Appropriate Consciousness: Alert Orientation: Person Speech: Hesitant, Stuttering Language: Adequate Fund of Knowledge: Inadequate Attention and Concentration: Adequate Memory: Impaired Mood: Appropriate Affect: Appropriate Thought Process & Associations: Loose associations Thought Content: Other (answers questions with a simple response ) Hallucination Type: None Delusion Type: None Suicidal Ideation: No Suicidal Plan: No Suicidal Intention: No Homicidal Ideation: No Homicidal Plan: No Homicidal Intention: No Insight: Fair Judgment: Impulsive Discharge/Advance Care Plan Health Problems: (1) Alzheimer's dementia with behavioral disturbance Goals to promote your health * To prevent worsening of your condition and complications * To maintain your health at the optimal level Directions to meet your goals Take your medications as prescribed Follow your dietary instruction Follow activity as directed Keep your appointments as scheduled Take your immunizations and boosters as scheduled If your symptoms worsen call your PCP, if no PCP go to Urgent Care Center or Emergency Room For 23/02 questions related to your inpatient stay or results of tests pending at discharge, please contact Dr. Butch Page at Smoking is Dangerous to Your Health. Avoid second hand smoking Butch Page MD Jan 26, 2018 12:19
== END 2018-01-26 13:30 | DRG 57 ==
LOC: NEPJ 21:21 → NEDA 01-16 04:09 → H250 01-16 04:51
PROVIDERS: ADMIT Psychiatry & Neurology Psychiatry; ATTEND Psychiatry & Neurology Psychiatry
DX: G30.9 Alzheimer's disease, unspecified (principal); F02.81 Dementia in other diseases classified elsewhere, unspecified severity, with behavioral disturbance; Z86.718 Personal history of other venous thrombosis and embolism; Z79.01 Long term (current) use of anticoagulants; I10 Essential (primary) hypertension; E78.5 Hyperlipidemia, unspecified; M19.90 Unspecified osteoarthritis, unspecified site; N64.4 Mastodynia
CPT/HCPCS: 70450; 71046; 80048; 80053; 80061; 80307; 83036; 84443; 85025; 85610; 99285